=== PATIENT | male | born 1950 | race Caucasian/White ===

== ENCOUNTER → 2017-09-15 12:22 | Outpatient (CLI) | payer MEDICARE, SELFPAY ==
[2017-09-15 13:29] LABS: Absolute Lymphocyte Count 2.51 X10^3/ul (0.83-4.51); Absolute Neutrophil Count 6.1 X10^3/uL (2.0-7.7); Basophil# 0.05 X10^3/uL; Basophil% 0.5 % (0-1); Eosinophil# 0.16 X10^3/uL; Eosinophils% 1.7 % (0-5); Hematocrit 44.7 % (40-54); Lymphocyte # 2.51 X10^3/ul (4.0); Lymphocyte % 26.1 % (19-41); Mean Corp Hgb Conc 33.6 g/gl (32-36); Mean Corpuscular Hgb 29.6 pg (27.0-32.0); Mean Corpuscular Volume 88.2 fL (80-94); Mean Platelet Vol. 11.1 fl (6.2-12.0); Monocyte# 0.78 X10^3/uL; Monocyte% 8.1 % (0-10); Neutrophil # 6.11 X10^3/uL (2.7-7.7); Neutrophil % 63.4 % (47-70); POSITIVE COUNT NO; POSITIVE DIFFERENTIAL NO; POSITIVE MORPHOLOGY NO; Platelet Count 221 K/mm3 (150-450); RBC Distribution Width CV 13.5 % (11.6-14.6); Red Blood Count 5.07 M/mm3 (4.6-6.2); White Blood Count 9.6 K/mm3 (4.4-11.0)
[2017-09-15 14:04] LABS: ALB/GLOB Ratio 1.1 RATIO (0.9-2.4); AST(SGOT) 33 U/L (15-37); Alanine Aminotransfer ALT/SGPT 36 U/L (16-61); Albumin, Serum 4.1 g/dL (3.2-5.0); Alkaline Phosphatase 108 U/L (45-117); Anion Gap 7 (5-15); BUN 23 mg/dL (7-18); BUN/Creat Ratio 14.7 RATIO (10-20); Calcium,Total 8.9 mg/dL (8.5-10.1); Chloride 102 mmol/L (98-107); Cholesterol 196 mg/dL (200); Creatinine, Serum 1.56 mg/dL (0.70-1.30); EST Glomerular Filtration Rate 47 mL/min (>60); Est Glom Filt Rate - Afr Amer 57 mL/min (>60); Globulin 3.9 g/dL (2.2-4.2); Glucose 85 mg/dL (74-106); High Density Lipoprotein 56 mg/dL; PSA,Total - Annual Screen 2.15 ng/mL (0.00-4.00); Potassium 3.8 mmol/L (3.5-5.1); Sodium Level 138 mmol/L (136-145); Thyroid Stim Hormone (TSH) 1.32 uIU/mL (0.358-3.74); Triglycerides 67 mg/dL; Very Low Density Lipoprotein 13 mg/dL (5-40)
== END ==
PROVIDERS: Family Provider Internal Medicine; PCP Internal Medicine; Visit Provider Internal Medicine
DX: E27.40 Unspecified adrenocortical insufficiency (principal); E03.9 Hypothyroidism, unspecified; J44.9 Chronic obstructive pulmonary disease, unspecified; M51.36 Other intervertebral disc degeneration, lumbar region; R53.83 Other fatigue; Z12.5 Encounter for screening for malignant neoplasm of prostate
CPT/HCPCS: 36415; 80053; 80061; 82533; 84153; 84443; 85025; G0103

== ENCOUNTER → 2017-12-23 12:11 | Outpatient (CLI) | payer MEDICARE, SELFPAY ==
--- NOTE | 2017-12-23 12:16 | RAD_ITS ---
STUDY: X-RAY CHEST REASON FOR EXAM: Male, 67 years old. Chest pain. TECHNIQUE: PA and lateral views of the chest. COMPARISON: Comparison is made with prior study dated July 13, 2017. FINDINGS: Hyperinflation. Decreased bronchovascular markings in both lungs suggestive of emphysematous changes. There is no demonstrated pleural abnormality. Normal size heart. Normal mediastinum and shantel. Normal visualized pulmonary arteries. There is atherosclerotic calcification of the aortic arch with tortuosity. There is demineralization of the osseous structures. Normal visualized ribs, clavicles, and shoulders. There is no demonstrated abnormality of the visualized soft tissue structures of the upper abdomen. RAD/Chest PA and Lateral IMPRESSION: Hyperinflation. There has been no change since prior study. Electronically Signed: Blaze Mcgarry MD at 15:17 EDT Tel [phone], Service support ,
== END ==
PROVIDERS: Family Provider Internal Medicine; PCP Internal Medicine; Visit Provider Internal Medicine
DX: R06.02 Shortness of breath (principal)
CPT/HCPCS: 71046

== ENCOUNTER → 2017-12-24 07:57 | Outpatient (CLI) | payer MEDICARE, SELFPAY ==
[2017-12-24 08:31] LABS: Hematocrit 42.5 % (40-54); Hemoglobin 14.1 g/dl (13.0-16.5); Mean Corp Hgb Conc 33.2 g/gl (32-36); Mean Corpuscular Hgb 29.4 pg (27.0-32.0); Mean Corpuscular Volume 88.7 fL (80-94); Platelet Count 236 K/mm3 (150-450); RBC Distribution Width CV 13.2 % (11.6-14.6); RBC Distribution Width SD 42.7 fl (35.1-43.9); Red Blood Count 4.79 M/mm3 (4.6-6.2); White Blood Count 11.1 K/mm3 (4.4-11.0)
[2017-12-24 08:34] LABS: Scan Indicated on CBC? Y/N NO
[2017-12-24 08:46] LABS: AST(SGOT) 27 U/L (15-37); Alanine Aminotransfer ALT/SGPT 25 U/L (16-61); Albumin, Serum 3.9 g/dL (3.2-5.0); Alkaline Phosphatase 105 U/L (45-117); Anion Gap 8 (5-15); BUN 20 mg/dL (7-18); BUN/Creat Ratio 13.3 RATIO (10-20); Calcium,Total 8.7 mg/dL (8.5-10.1); Chloride 105 mmol/L (98-107); EST Glomerular Filtration Rate 49 mL/min (>60); Est Glom Filt Rate - Afr Amer 60 mL/min (>60); Globulin 3.9 g/dL (2.2-4.2); Glucose 92 mg/dL (74-106); Potassium 3.5 mmol/L (3.5-5.1); Protein, Total 7.8 g/dL (6.4-8.2); Sodium Level 142 mmol/L (136-145)
[2017-12-24 09:11] LABS: D-Dimer Quantitative (DVT/PE) 0.35 FEU/ug/m (0.27-0.49)
== END ==
PROVIDERS: Family Provider Internal Medicine; PCP Internal Medicine; Visit Provider Internal Medicine
DX: I26.99 Other pulmonary embolism without acute cor pulmonale (principal); D64.9 Anemia, unspecified; E27.40 Unspecified adrenocortical insufficiency
CPT/HCPCS: 36415; 80053; 85027; 85379

== ENCOUNTER → 2018-01-10 13:22 | Outpatient (CLI) | payer MEDICARE, SELFPAY ==
--- NOTE | 2018-01-10 13:22 | DT_ITS ---
This patient was seen during an EMR downtime January 03, 2018 - January 10, 2018. This patient may have a combination of paper and electronic documentation or all paper documentation. All documentation is viewable within the e-chart portion of [employer] for each patient visit.
[2018-01-10 15:54] LABS: ALB/GLOB Ratio 0.9 RATIO (0.9-2.4); AST(SGOT) 31 U/L (15-37); Alanine Aminotransfer ALT/SGPT 29 U/L (16-61); Albumin, Serum 3.8 g/dL (3.2-5.0); Alkaline Phosphatase 121 U/L (45-117); Anion Gap 8 (5-15); BUN 17 mg/dL (7-18); BUN/Creat Ratio 9.8 RATIO (10-20); CORTISOL SERUM < 0.50 ug/dL (3.09-22.40); Calcium,Total 8.8 mg/dL (8.5-10.1); Chloride 100 mmol/L (98-107); Creatinine, Serum 1.73 mg/dL (0.70-1.30); EST Glomerular Filtration Rate 42 mL/min (>60); Est Glom Filt Rate - Afr Amer 51 mL/min (>60); Globulin 4.1 g/dL (2.2-4.2); Glucose 116 mg/dL (74-106); Potassium 3.8 mmol/L (3.5-5.1); Protein, Total 7.9 g/dL (6.4-8.2); Sodium Level 139 mmol/L (136-145); Thyroid Stim Hormone (TSH) 1.37 uIU/mL (0.358-3.74)
== END ==
PROVIDERS: Family Provider Internal Medicine; PCP Internal Medicine; Visit Provider Internal Medicine
DX: E03.9 Hypothyroidism, unspecified (principal); E27.40 Unspecified adrenocortical insufficiency
CPT/HCPCS: 36415; 80053; 82533; 84443

== ENCOUNTER → 2018-04-19 13:04 | Outpatient (CLI) | payer MEDICARE, SELFPAY ==
[2018-04-19 13:44] LABS: Absolute Lymphocyte Count 3.22 X10^3/ul (0.83-4.51); Absolute Neutrophil Count 6.9 X10^3/uL (2.0-7.7); Basophil# 0.05 X10^3/uL; Basophil% 0.4 % (0-1); Eosinophil# 0.15 X10^3/uL; Eosinophils% 1.3 % (0-5); Hematocrit 43.9 % (40-54); Hemoglobin 14.9 g/dl (13.0-16.5); Lymphocyte # 3.22 X10^3/ul (4.0); Lymphocyte % 28.9 % (19-41); Mean Corp Hgb Conc 33.9 g/gl (32-36); Mean Corpuscular Hgb 29.9 pg (27.0-32.0); Mean Corpuscular Volume 88.2 fL (80-94); Mean Platelet Vol. 10.8 fl (6.2-12.0); Monocyte# 0.81 X10^3/uL; Monocyte% 7.3 % (0-10); Neutrophil # 6.89 X10^3/uL (2.7-7.7); Neutrophil % 61.9 % (47-70); Platelet Count 301 K/mm3 (150-450); RBC Distribution Width CV 12.8 % (11.6-14.6); Red Blood Count 4.98 M/mm3 (4.6-6.2); White Blood Count 11.1 K/mm3 (4.4-11.0)
[2018-04-19 13:48] LABS: POSITIVE COUNT NO; POSITIVE DIFFERENTIAL NO; POSITIVE MORPHOLOGY NO
[2018-04-19 14:11] LABS: Thyroid Stim Hormone (TSH) 0.76 uIU/mL (0.358-3.74)
== END ==
PROVIDERS: Family Provider Internal Medicine; PCP Internal Medicine; Visit Provider Internal Medicine
DX: R04.2 Hemoptysis (principal); J44.9 Chronic obstructive pulmonary disease, unspecified; I10 Essential (primary) hypertension; E03.9 Hypothyroidism, unspecified; E27.40 Unspecified adrenocortical insufficiency; I73.9 Peripheral vascular disease, unspecified
CPT/HCPCS: 36415; 82533; 84443; 85025

== ENCOUNTER 2018-05-17 10:26 | Emergency (ER) | payer MEDICARE, SELFPAY ==
[2018-05-17] VITALS (8 sets, daily range): BP systolic 154–183; BP diastolic 78–107; PULSE 80–98; RESP 16–20; TEMP 37.1; O2SAT 93–99; BMI 23.8
--- NOTE | 2018-05-17 10:41 | CT_ITS ---
STUDY: CT BRAIN WITHOUT CONTRAST REASON FOR EXAM: Male, 68 years old. Headaches. Dehydration. RADIATION DOSAGE (If Supplied By Facility): CTDIvol = ( 44.99 ) mGy, DLP = ( 779.24 ) mGycm TECHNIQUE: Transaxial CT imaging of the brain was performed without administration of intravenous contrast material. Individualized dose optimization techniques were used for this CT. COMPARISON: Comparison is made with prior examination dated July 13, 2017. FINDINGS: Normal soft tissue structures. Normal calvarium. Normal size ventricles and extra-axial spaces for the patient's age. Normal white matter tracts of the cerebral hemispheres. Normal basal ganglia and thalami. Normal brainstem. Normal cerebellum. There is no intracranial hemorrhage. There are no findings of an acute ischemic infarction. Normal visualized paranasal sinuses. CT/Brain/Head without Contrast IMPRESSION: Normal unenhanced CT scan of the brain. Electronically Signed: Blaze Mcgarry MD at 11:32 EDT Tel [phone], Service support ,
--- NOTE | 2018-05-17 10:41 | EKG12_ITS ---
Test Reason : NAUSEA Blood Pressure : / mmHG Vent. Rate : 093 BPM Atrial Rate : 093 BPM P-R Int : 130 ms QRS Dur : 084 ms QT Int : 364 ms P-R-T Axes : 082 -42 055 degrees QTc Int : 452 ms Sinus rhythm with occasional Premature ventricular complexes Right atrial enlargement Left axis deviation Pulmonary disease pattern Nonspecific ST abnormality Abnormal ECG Confirmed by MADDIE RING, LOCO ([id number]), deputy editor in chief LEE ASTORGA ([id number]) on 05/19/2018 9:41:46 AM Referred By: LEIGH Confirmed By:LOCO PERKINS MD
[2018-05-17 10:53] LABS: Absolute Neutrophil Count 9.7 X10^3/uL (2.0-7.7); Basophil# 0.03 X10^3/uL; Basophil% 0.2 % (0-1); Eosinophil# 0.16 X10^3/uL; Eosinophils% 1.3 % (0-5); Hematocrit 51.2 % (40-54); Hemoglobin 16.9 g/dl (13.0-16.5); Lymphocyte % 13.1 % (19-41); Mean Corpuscular Hgb 29.6 pg (27.0-32.0); Mean Corpuscular Volume 89.8 fL (80-94); Mean Platelet Vol. 10.6 fl (6.2-12.0); Monocyte# 0.73 X10^3/uL; Neutrophil # 9.67 X10^3/uL (2.7-7.7); Neutrophil % 79.3 % (47-70); Platelet Count 209 K/mm3 (150-450); RBC Distribution Width CV 12.8 % (11.6-14.6); RBC Distribution Width SD 41.4 fl (35.1-43.9); White Blood Count 12.2 K/mm3 (4.4-11.0)
[2018-05-17 10:56] LABS: POSITIVE COUNT NO; POSITIVE DIFFERENTIAL NO; POSITIVE MORPHOLOGY NO
[2018-05-17] MEDS: 0.9% Normal Saline 1,000 ML 1000 ML IV (11:02)
[2018-05-17] MEDS: Ondansetron 4 MG/2 ML Vial IV (11:02)
[2018-05-17 11:05] LABS: AST(SGOT) 161 U/L (15-37); Alanine Aminotransfer ALT/SGPT 173 U/L (16-61); Albumin, Serum 4.3 g/dL (3.2-5.0); Alkaline Phosphatase 109 U/L (45-117); Anion Gap 9 (5-15); BUN 25 mg/dL (7-18); BUN/Creat Ratio 17.2 RATIO (10-20); Calcium,Total 9.4 mg/dL (8.5-10.1); Chloride 95 mmol/L (98-107); Creatinine, Serum 1.45 mg/dL (0.70-1.30); EST Glomerular Filtration Rate 51 mL/min (>60); Est Glom Filt Rate - Afr Amer 62 mL/min (>60); Globulin 4.1 g/dL (2.2-4.2); Glucose 76 mg/dL (74-106); Potassium 3.8 mmol/L (3.5-5.1); Protein, Total 8.4 g/dL (6.4-8.2); Sodium Level 135 mmol/L (136-145)
[2018-05-17 11:59] LABS: Acetaminophen (Tylenol) Level < 2.0 ug/mL (10.0-30.0); Alcohol, Blood (Medical)-Serum < 3.0 mg/dL; Salicylate < 1.7 mg/dL (2.8-20.0)
[2018-05-17] MEDS: 0.9% Normal Saline 1,000 ML 999 ML IV (13:53)
--- NOTE | 2018-05-17 14:39 | ED.DCSUM_ITS ---
- ER Visit Summary Date of Service: 05/17/18 Chief Complaint: Dehydrated History of Present Illness: The patient is a [address] Garcia. He is a poor informant. He reports that he has been doing a fast and water cleanse for the past several days. States this is to get toxins left in me from being on OxyContin in 10/2003. He reports that he has not been eating. He has been drinking special water with magnesium. Patient complains of nausea and vomiting x3. No blood in his emesis. He reports that he has had multiple episodes of diarrhea since yesterday. No blood in his stools or black tarry stools. Complains of a headache that is 7 out of 10 severity and generalized weakness. EMS notes that the patient had all of his windows open despite the fact that was in the low 40s. I asked patient about this and he reports that there was a smell of natural gas. He is unable to state when this started. EMS also notes that the patient had packed bags with a loaded 357 on top of them. When asked about this patient reports that it is because he volunteered to be part [employer] the [employer]. States that he has not been called up yet. However, he had a phone message from the president that said standby. Physical Examination: Vitals: Stable. Afebrile. General: Well-nourished and well-developed. Head: Normocephalic atraumatic. Neck: Supple, no lymphadenopathy. No JVD. Nontender. Cardiovascular: Regular rate and rhythm. No murmurs. Respiratory: No respiratory distress. Clear to auscultation bilaterally. Abdominal: Soft, nontender, nondistended, normal bowel sounds. No guarding, rebound, or peritoneal signs. Back: Nontender. Extremities: Nontender, no edema. Skin: Normal color, no rash. Neurologic: Alert and oriented ?3. Cranial nerves II through XII are intact. Normal strength and sensation. Psych: Normal affect. Test Results: EKG is sinus at 93 with PVC. Troponin is negative. LFTs are marked for total bili of 2.7, ALT of 161, and AST of 173. Chem-7 is marked for sodium 135, chloride 95, BUN of 25, creatinine 1.45. Creatinine has been 1.43- 1.73 since 2017. Chem-7 is more for a white count of 12.2 with a hemoglobin of 16.9, 7 neutrophils 79, lymphocytes 13. Buttock level 0. Aspirin level is less than 1.7. Tylenol level is less than 3.0. CT brain is normal. UA, tox screen, and TSH are pending. Emergency Department Course and Treatment: I contacted the patient's daughter shortly after arrival. She reports that the patient has a history of schizophrenia and has been hospitalized for this in the past. She states that she was his guardian, but he has been doing well for the past 1-2 years and refused to let her be his guardian any longer. States that he changed bank accounts over the weekend and she is concerned that his schizophrenia is out of control. She is obviously concerned that he has a loaded gun at home. Treatment Plan: The patient will require hospitalization for his schizophrenia. He will be turned over to the oncoming doctor for further evaluation and will need to be seen by the counseling center. Disposition: Pending Impression: 1. Schizophrenia, decompensated. This note was generated with [employer] dictation software. It may contain incorrect words, spelling, and punctuation that were not noted in review of the chart prior to signing ED Disposition - Plan for ED Patient: Chief Complaint: Nausea/Vomiting Referrals: Lukas Garcia MD [Primary Care Provider] -
[2018-05-17 15:18] LABS: Thyroid Stim Hormone (TSH) 1.49 uIU/mL (0.358-3.74)
[2018-05-17 15:49] LABS: Bacteria 0 SEEN /hpf (None Seen); Mucous, Urine 0 SEEN /hpf (<or=2+); Squamous Epithelial Cells - UA 0 SEEN /hpf (0-5); White Blood Cells 0 SEEN /hpf (0-5)
[2018-05-17 16:09] LABS: Color, Urine Yellow (Yellow); Glucose, Dipstick Normal (Normal); Ketone-Dipstick 50 mg/dl (Negative); Leukocyte Esterase-Dipstick Negative /ul (Negative); Nitrite-Dipstick Negative (Negative); Occult Blood-Urine 25 /ul (Negative); Protein-Dipstick 30 mg/dl (Negative); Specific Gravity, Urine 1.015 (1.002-1.030); Urine Bilirubin Dipstick Negative (Negative); Urine Clarity Clear (Clear); Urine Urobilinogen Normal (Normal); Urine pH 6.5 (5.0 - 8.0)
[2018-05-17 16:23] LABS: Amphetamine Urine VISTA NEGATIVE (<1000 ng/mL); Barbiturate Urine VISTA NEGATIVE (< 200 ng/mL); Benzodiazepine Urine VISTA NEGATIVE (< 200 ng/mL); Cocaine Urine VISTA NEGATIVE (< 300 ng/mL); Ecstacy Urine VISTA NEGATIVE (< 500 ng/mL); Methadone Urine VISTA NEGATIVE (< 300 ng/mL); PCP Urine VISTA NEGATIVE (< 25 ng/mL); THC Urine VISTA NEGATIVE (< 50 ng/mL); Vista UDS pH Range 6
[2018-05-17 16:24] LABS: Red Blood Cells-Urine 0-5 SEEN /hpf (0-5)
[2018-05-17] MEDS: Ipratropium/Albuterol Sulfate 3 ML AMPUL.NEB INHALATION (17:36)
[2018-05-17] MEDS: Ondansetron ODT 4 MG Tablet PO (17:53)
[2018-05-17] MEDS: Acetaminophen 500 MG Tablet 1000 MG PO (20:11)
--- NOTE | 2018-05-17 21:30 | RAD_ITS ---
STUDY: X-RAY CHEST REASON FOR EXAM: Male, 68 years old. Mental health clearance. TECHNIQUE: 2 frontal images of the chest. COMPARISON: December 23, 2017 FINDINGS: There is no new focal consolidation. The lungs remain hyperinflated. Normal size heart. Normal mediastinum and shantel. Normal visualized pulmonary arteries. Normal visualized aortic arch and descending thoracic aorta. Normal visualized thoracic spine. Normal visualized ribs, clavicles, and shoulders. There is no demonstrated abnormality of the visualized soft tissue structures of the upper abdomen. RAD/Chest 1 View (Portable) IMPRESSION: Stable examination demonstrating no acute cardiopulmonary process. Electronically Signed: Faith Sam MD at 21:50 EDT Tel , Service support ,
[2018-05-17] MEDS: MELATONIN 10 MG TABLET PO (22:19)
[2018-05-17] MEDS: traZODone 50 MG Tablet PO (22:20)
[2018-05-18 01:00] VITALS: BP 148/112; PULSE 68; O2SAT 92
[2018-05-18 03:00] VITALS: BP 208/96; PULSE 100; O2SAT 92
[2018-05-18 05:00] VITALS: BP 165/75; PULSE 82; O2SAT 100
[2018-05-18 06:50] VITALS: BP 165/75; PULSE 90; RESP 18; TEMP 37.1; O2SAT 94
[2018-05-18 07:07] VITALS: BP 162/63; PULSE 68; RESP 18; O2SAT 91
== END 2018-05-18 08:10 ==
PROVIDERS: Emergency Provider Emergency Medicine; Family Provider Internal Medicine; PCP Internal Medicine
DX: F20.9 Schizophrenia, unspecified (principal); R11.2 Nausea with vomiting, unspecified; R19.7 Diarrhea, unspecified; R51 Headache; R53.1 Weakness; R68.83 Chills (without fever); I49.3 Ventricular premature depolarization; F32.9 Major depressive disorder, single episode, unspecified; Z86.14 Personal history of Methicillin resistant Staphylococcus aureus infection; Z79.899 Other long term (current) drug therapy
CPT/HCPCS: 70450; 71045; 80053; 80307; 80320; 80329; 81001; 84443; 84484; 85025; 93005; 94640; 96361; 96374; 99285; J7030; A4216; G0480; J2405

== ENCOUNTER 2018-07-21 10:08 | Emergency (ER) | payer MEDICARE, SELFPAY ==
[2018-07-21] VITALS (7 sets, daily range): BP systolic 128–194; BP diastolic 86–123; PULSE 81–114; RESP 16–18; TEMP -17.7–36.6; O2SAT 95–97; BMI 24.3
--- NOTE | 2018-07-21 10:12 | RAD_ITS ---
STUDY: X-RAY CHEST REASON FOR EXAM: Male, 68 years old. Chest pain, palpitations. Currently on antibiotics for lung infection. Recently started medication for blood pressure. Hypertension. TECHNIQUE: Portable chest upright COMPARISON: 05/17/2018 chest x-ray, CT chest 04/19/2017. FINDINGS: There is generalized pulmonary hyperlucency and hyperinflation with diffuse mild coarsening of the pulmonary interstitium and hemidiaphragm flattening consistent with underlying COPD/emphysema. There is a stable small radiodense nodular focus in the right lung apex measuring about 7 mm, most likely represent a small calcified granuloma. This is concordant with the partially calcified minimally spiculated pulmonary nodule seen at the right lung apex on CT chest of 04/19/2017 with no apparent interval growth. There is a subtle opacity in the left midlung, also concordant with a partially calcified pulmonary nodule of the left upper lobe posterior segment stable compared to prior imaging. The lungs are otherwise acutely clear. Normal cardiomediastinal silhouette, shantel and pleural margins. No acute osseous or upper abdominal process. RAD/Chest 1 View (Portable) IMPRESSION: Stable partially calcified right lung apex and right midlung pulmonary nodules compared to imaging of 2017 most consistent with old granulomatous disease and/or scar. COPD/emphysema. Electronically Signed: Leonardo Rinaldi MD at 11:06 EST Tel , Service support ,
--- NOTE | 2018-07-21 10:12 | EKG12_ITS ---
Test Reason : SOB Blood Pressure : / mmHG Vent. Rate : 102 BPM Atrial Rate : 102 BPM P-R Int : 138 ms QRS Dur : 058 ms QT Int : 320 ms P-R-T Axes : 076 -51 -02 degrees QTc Int : 417 ms Sinus tachycardia Left axis deviation Inferior infarct , age undetermined Abnormal ECG Confirmed by DIRK RICHARDS ([id number]), brands editor LEE ASTORGA ([id number]) on 07/27/2018 2:42:11 PM Referred By: PAOLA Confirmed By:DIRK RICHARDS
--- NOTE | 2018-07-21 10:20 | ED.VISSUMM ---
- ER Visit Summary Date of Service: 07/21/18 Chief Complaint: [] Elevated blood pressure for about a month History of Present Illness: The patient is a 68 M [] history of adrenal insufficiency COPD hypertension, presents complaining feels as if his blood pressure is elevated, he was seen by visiting nurse was about 190/100, indicates his blood pressure has been higher than normal since he was given an injection of inVega about a month which was used to relax him, this medicine had no effect on him other than he feels driving his blood pressure up, he was started on Cozaar 50 mg a day about 2 weeks ago he has noticed no improvement he was brought in for evaluation he also notes at times he feels if his heart is racing he has no history of MO PE DVT CAD he lives alone at home and does well he is followed by Dr. Garcia Physical Examination: [] 193/105 afebrile resting comfortably in the bed General, no distress resting comfortably HEENT is generally unremarkable The neck is supple no adenopathy Cardiovascular, regular rate and rhythm Lungs, clear bilateral Abdomen, soft nontender Extremities, no clubbing cyanosis or edema Neurologic, awake alert answering questions appropriately moving all 4 extremities Test Results: [] Emergency Department Course and Treatment: [] In all the above he was given clonidine screening labs his EKG shows a sinus rhythm nothing acute His screening labs chest x-ray unremarkable his blood pressure is now 153/83 he is resting cuffing the bed no distress, he was given clonidine 0.[address] Garcia his attending physician Dr. Garcia's records and blood pressure measurements in the office have been in this range of 153/80, at this time Dr. Garcia asked the patient stay on his losartan 50 mg a day we will add clonidine 0.1 mg twice daily for [address] Garcia reassess him in the office for further management I explained all the above to the patient he agrees and will follow up Treatment Plan: [] Disposition: [] Home stable Impression: [] Hypertension with exacerbation improved This note was generated with [employer] software. It may contain incorrect words, spelling, and punctuation that were not noted in review of the chart prior to signing ED Disposition - Plan for ED Patient: Chief Complaint: Chest Pain Referrals: Lukas Garcia MD [Primary Care Provider] -
[2018-07-21 10:35] LABS: Absolute Lymphocyte Count 1.89 X10^3/ul (0.83-4.51); Absolute Neutrophil Count 5.2 X10^3/uL (2.0-7.7); Basophil# 0.02 X10^3/uL; Basophil% 0.2 % (0-1); Eosinophil# 0.71 X10^3/uL; Eosinophils% 8.4 % (0-5); Hematocrit 39.6 % (40-54); Hemoglobin 12.8 g/dl (13.0-16.5); Lymphocyte # 1.89 X10^3/ul (4.0); Lymphocyte % 22.4 % (19-41); Mean Corp Hgb Conc 32.3 g/gl (32-36); Mean Corpuscular Hgb 29.2 pg (27.0-32.0); Mean Corpuscular Volume 90.2 fL (80-94); Mean Platelet Vol. 9.9 fl (6.2-12.0); Monocyte# 0.63 X10^3/uL; Monocyte% 7.5 % (0-10); Neutrophil # 5.19 X10^3/uL (2.7-7.7); Neutrophil % 61.4 % (47-70); Platelet Count 170 K/mm3 (150-450); RBC Distribution Width CV 15.2 % (11.6-14.6); RBC Distribution Width SD 50.1 fl (35.1-43.9); Red Blood Count 4.39 M/mm3 (4.6-6.2); White Blood Count 8.5 K/mm3 (4.4-11.0)
[2018-07-21] MEDS: Ipratropium/Albuterol Sulfate 3 ML AMPUL.NEB INHALATION (10:35)
[2018-07-21 10:36] LABS: POSITIVE COUNT NO; POSITIVE DIFFERENTIAL NO; POSITIVE MORPHOLOGY NO
[2018-07-21] MEDS: Aspirin 81 MG TAB.CHEW 324 MG PO (10:41)
[2018-07-21] MEDS: Clonidine HCl 0.1 MG, Clonidine HCl 0.2 MG 0.3 MG PO (10:44)
[2018-07-21 10:47] LABS: Anion Gap 10 (5-15); BUN 22 mg/dL (7-18); BUN/Creat Ratio 16.1 RATIO (10-20); Calcium,Total 8.5 mg/dL (8.5-10.1); Chloride 102 mmol/L (98-107); Creatinine, Serum 1.37 mg/dL (0.70-1.30); EST Glomerular Filtration Rate 55 mL/min (>60); Est Glom Filt Rate - Afr Amer 66 mL/min (>60); Glucose 105 mg/dL (74-106); Potassium 3.9 mmol/L (3.5-5.1); Sodium Level 143 mmol/L (136-145)
[2018-07-21 11:04] LABS: BNP,B-Type NATRIURETIC PEPTIDE 16.8 pg/mL (0-100)
[2018-07-21 11:29] LABS: Mucous, Urine 0 SEEN /hpf (<or=2+); White Blood Cells 0 SEEN /hpf (0-5)
--- NOTE | 2018-07-21 11:29 | NURSING ---
CALLING DR GERRY HANKS, , FOR DR CLEMENTE
[2018-07-21 11:31] LABS: Color, Urine Yellow (Yellow); Glucose, Dipstick Normal (Normal); Ketone-Dipstick Negative (Negative); Leukocyte Esterase-Dipstick Negative /ul (Negative); Nitrite-Dipstick Negative (Negative); Occult Blood-Urine 10 /ul (Negative); Protein-Dipstick Negative (Negative); Urine Bilirubin Dipstick Negative (Negative); Urine Clarity Sl. Cloudy (Clear); Urine Urobilinogen Normal (Normal)
[2018-07-21 11:56] LABS: Bacteria RARE /hpf (None Seen); Red Blood Cells-Urine 0-5 SEEN /hpf (0-5); Squamous Epithelial Cells - UA 0-5 SEEN /hpf (0-5)
--- NOTE | 2018-07-21 12:03 | ED.DEP ---
ED Disposition - Plan for ED Patient: Chief Complaint: Chest Pain Instructions: ED HTN Established Prescriptions: Clonidine HCl [Catapres] 0.1 mg PO BID #14 tab Referrals: Lukas Garcia MD [Primary Care Provider] - Additional Instructions: Continue your current medicine losartan, add the clonidine 0.1 mg twice daily and follow-up with your doctor in a few days
== END 2018-07-21 13:29 | disposition short-term general hospital (02) ==
PROVIDERS: Emergency Provider Emergency Medicine; Family Provider Internal Medicine; PCP Internal Medicine
DX: I10 Essential (primary) hypertension (principal); J44.9 Chronic obstructive pulmonary disease, unspecified; R00.2 Palpitations; Z60.2 Problems related to living alone; R06.02 Shortness of breath
CPT/HCPCS: 71045; 80048; 81001; 83880; 84484; 85025; 93005; 94640; 99285; J7030; A4216

== ENCOUNTER 2018-08-04 08:57 | Emergency (ER) | payer MEDICARE, SELFPAY ==
[2018-07-21 10:10] VITALS: BMI 24.3
[2018-08-04 08:59] VITALS: BP 170/99; PULSE 94; PULSE 97; RESP 18; TEMP 36.6; O2SAT 95; O2SAT 96; BMI 21.5
--- NOTE | 2018-08-04 09:04 | EKG12_ITS ---
Test Reason : PALPS Blood Pressure : / mmHG Vent. Rate : 093 BPM Atrial Rate : 093 BPM P-R Int : 128 ms QRS Dur : 074 ms QT Int : 350 ms P-R-T Axes : 080 -41 052 degrees QTc Int : 435 ms Normal sinus rhythm Left axis deviation Low voltage QRS (LIMB LEADS) Nonspecific T wave abnormality Abnormal ECG Confirmed by KERVIN RING, VIOLA ([id number]), order editor LEE ASTORGA ([id number]) on 08/09/2018 11:18:47 AM Referred By: BRAULIO Confirmed By:VIOLA GALEANA MD
[2018-08-04 09:41] VITALS: BP 167/93; PULSE 90; RESP 18; O2SAT 97
[2018-08-04] MEDS: cloNIDine HCl 0.1 MG Tablet PO (09:41)
[2018-08-04 10:28] VITALS: BP 182/89; PULSE 76; RESP 18; O2SAT 96
[2018-08-04 10:58] VITALS: BP 134/81; PULSE 88; RESP 16; O2SAT 96
--- NOTE | 2018-08-04 11:00 | ED.DCSUM_ITS ---
- ER Visit Summary Date of Service: 08/04/18 Chief Complaint: High blood pressure History of Present Illness: The patient is a 68 M with high blood pressure over the past month. The patient attributes it to taking Invega. He is currently on losartan and is compliant, but takes nothing else for blood pressure. He has had some headache and palpitations over the past month intermittently. No other symptoms. Non-smoker. Physical Examination: Afebrile and vital signs unremarkable except for a blood pressure of 170/99. HEENT exam unremarkable. Cranial nerves unremarkable. Heart regular. Lungs clear. Abdomen soft. Skin, calves, pulses unremarkable. Good strength and sensation in his extremities. Nonfocal neurologic exam. Test Results: Patient had an EKG that showed sinus rhythm at a rate of 93. No sign of acute ischemia or infarction pattern. He declined any other testing. Emergency Department Course and Treatment: Patient presents with hypertension. He has had a headache and palpitations. His blood pressure was over 200 earlier today. I advised him that he is at risk for brain, heart, vascular, renal, and other damage. He declined any testing. Patient was treated with a dose of clonidine as we had this on hand. He received 0.1 mg. On reevaluation, his blood pressure was 134/81. He had no new or different symptoms. He would like to go home. Will prescribe a course of HCTZ. He will follow-up with his doctor. Continue his other medications. Return for any new or worsening issues. Treatment Plan: As above Disposition: Discharge Impression: 1. Hypertension established This note was generated with [employer] dictation software. It may contain incorrect words, spelling, and punctuation that were not noted in review of the chart prior to signing ED Disposition - Plan for ED Patient: Chief Complaint: Hypertension Referrals: Lukas Garcia MD [Primary Care Provider] -
--- NOTE | 2018-08-04 11:00 | ED.DEP ---
ED Disposition - Plan for ED Patient: Chief Complaint: Hypertension Instructions: ED HTN Established Prescriptions: Hydrochlorothiazide [Hctz] 25 mg PO DAILY #30 tab Referrals: Lukas Garcia MD [Primary Care Provider] -
[2018-08-04 11:25] VITALS: BP 138/88; PULSE 84; RESP 16; O2SAT 97
== END 2018-08-04 11:26 | disposition home or self-care (01) ==
PROVIDERS: Emergency Provider Emergency Medicine; Family Provider Internal Medicine; PCP Internal Medicine
DX: I10 Essential (primary) hypertension (principal); J44.9 Chronic obstructive pulmonary disease, unspecified; E03.9 Hypothyroidism, unspecified
CPT/HCPCS: 93005; 99284

== ENCOUNTER 2018-08-10 06:50 | Emergency (ER) | payer MEDICARE, SELFPAY ==
[2018-08-10 06:51] VITALS: BP 167/92; PULSE 94; RESP 18; TEMP 36.6; O2SAT 97; BMI 23.6
--- NOTE | 2018-08-10 07:13 | EKG12_ITS ---
Test Reason : HYPERTENSION Blood Pressure : / mmHG Vent. Rate : 082 BPM Atrial Rate : 082 BPM P-R Int : 152 ms QRS Dur : 064 ms QT Int : 366 ms P-R-T Axes : 078 -37 002 degrees QTc Int : 427 ms Normal sinus rhythm Left axis deviation Inferior infarct , age undetermined Abnormal ECG Confirmed by MADDIE RING, LOCO ([id number]), photograph editor LEE ASTORGA ([id number]) on 08/15/2018 10:00:18 AM Referred By: MILA Confirmed By:LOCO PERKINS MD
[2018-08-10] MEDS: cloNIDine HCl 0.1 MG Tablet PO (07:28)
--- NOTE | 2018-08-10 07:48 | ED.DCSUM_ITS ---
- ER Visit Summary Date of Service: 08/10/18 Chief Complaint: Hypertension History of Present Illness: The patient is a 68 M presenting for evaluation secondary to hypertension. Patient reports that he get long-acting injections of invega. He reports that he has an adverse reaction to these in the sense t hat he is having difficult to control hypertension. Patient states that this hypertension is associated with headaches and palpitations. He denies any chest pain shortness of breath visual changes numbness or weakness. Patient has been seen in the emergency department for this a number of times. Patient is currently on antihypertensives including losartan 100 mg daily and hydrochlorothiazide 25 mg daily. Patient reports that he has follow-up with his primary care physician for this next week, but his symptoms returned this morning and he was concerned. Review of systems otherwise negative. Physical Examination: Vital signs are within normal limits, blood pressure 167/92, patient is afebrile. General: Patient is well-nourished well-developed and in no acute distress. Head: Normocephalic, atraumatic Eyes: Pupils equal round and reactive bilaterally, extra occular motion intact bialterally ENT: Moist mucous membranes Neck: Supple, no lymphadenopathy, no JVD, no meningismus CVS: Heart regular rate and rhythm, no murmurs, rubs or gallops, radial pulses 2+ bilaterally Resp: Respirations nondistressed, lung sounds clear bilaterally Abdomen: Soft, nontender, nondistended, no palpable masses, normal bowel sounds Back: Nontender Extremities: Nontender, atraumatic, active full range of motion, no peripheral edema Skin: warm, no rashes, no petechia Neuro: Alert and oriented x 4, CN 2-12 intact, no lateralizing neurological defecits Psyc: Normal affect Test Results: EKG demonstrates sinus rhythm at 82 with left axis deviation, no evidence of acute ST segment changes or T wave changes, no changes from prior EKG Emergency Department Course and Treatment: Patient presented for evaluation secondary to hypertension. He has no concerning evidence of endorgan damage. His blood pressure is 167/92 which is not to a level where I believe that he is at risk for acute coronary syndrome, heart failure, stroke, or other serious etiology. I do not believe that blood work or further workup is indicated. An EKG showed no signs of heart strain. Patient was given a dose of Catapres in the emergency department and will be discharged with a course of the same. He is encouraged to follow-up with his primary care physician. Disposition: Discharge Impression: 1. Chronic hypertension 2. Prescription therapy This note was generated with [employer] dictation software. It may contain incorrect words, spelling, and punctuation that were not noted in review of the chart prior to signing ED Disposition - Plan for ED Patient: Disposition: Home or Assisted Living Chief Complaint: Hypertension Diagnosis: Hypertension Instructions: ED HTN Established Prescriptions: Clonidine HCl [Catapres] 0.1 mg PO DAILY #10 tab Referrals: Lukas Garcia MD [Primary Care Provider] - Keep Ciara appointment
[2018-08-10 07:50] VITALS: BP 132/86; PULSE 70; RESP 16; O2SAT 95
[2018-08-10 07:56] VITALS: BP 132/86; PULSE 70; RESP 16; O2SAT 95
== END 2018-08-10 07:57 | disposition home or self-care (01) ==
PROVIDERS: Emergency Provider Emergency Medicine; Family Provider Internal Medicine; PCP Internal Medicine
DX: I10 Essential (primary) hypertension (principal)
CPT/HCPCS: 93005; 99283

== ENCOUNTER → 2018-12-15 11:28 | Outpatient (CLI) | payer MEDICARE, SELFPAY ==
[2018-12-15 12:21] LABS: Absolute Lymphocyte Count 2.77 X10^3/ul (0.83-4.51); Absolute Neutrophil Count 4.8 X10^3/uL (2.0-7.7); Basophil# 0.02 X10^3/uL; Basophil% 0.2 % (0-1); Eosinophil# 0.18 X10^3/uL; Eosinophils% 2.1 % (0-5); Hemoglobin 13.1 g/dl (13.0-16.5); Lymphocyte # 2.77 X10^3/ul (4.0); Lymphocyte % 32.2 % (19-41); Mean Corp Hgb Conc 33.6 g/gl (32-36); Mean Corpuscular Volume 92.2 fL (80-94); Mean Platelet Vol. 9.8 fl (6.2-12.0); Monocyte# 0.86 X10^3/uL; Neutrophil # 4.75 X10^3/uL (2.7-7.7); Neutrophil % 55.4 % (47-70); Platelet Count 263 K/mm3 (150-450); RBC Distribution Width CV 13.6 % (11.6-14.6); RBC Distribution Width SD 45.3 fl (35.1-43.9); Red Blood Count 4.23 M/mm3 (4.6-6.2); White Blood Count 8.6 K/mm3 (4.4-11.0)
[2018-12-15 12:24] LABS: POSITIVE COUNT NO; POSITIVE DIFFERENTIAL NO; POSITIVE MORPHOLOGY NO
[2018-12-15 12:58] LABS: ALB/GLOB Ratio 1.3 RATIO (0.9-2.4); AST(SGOT) 25 U/L (15-37); Alanine Aminotransfer ALT/SGPT 31 U/L (16-61); Albumin, Serum 4.1 g/dL (3.2-5.0); Alkaline Phosphatase 70 U/L (45-117); Anion Gap 4 (5-15); BUN 24 mg/dL (7-18); BUN/Creat Ratio 12.7 RATIO (10-20); Calcium,Total 8.6 mg/dL (8.5-10.1); Chloride 105 mmol/L (98-107); Cholesterol 187 mg/dL (200); Creatinine, Serum 1.89 mg/dL (0.70-1.30); EST Glomerular Filtration Rate 38 mL/min (>60); Est Glom Filt Rate - Afr Amer 46 mL/min (>60); Globulin 3.2 g/dL (2.2-4.2); Glucose 85 mg/dL (74-106); High Density Lipoprotein 50 mg/dL; Iron 82 ug/dL (65-175); Iron Binding Capacity,Total 331 ug/dL (250-450); Potassium 3.7 mmol/L (3.5-5.1); Protein, Total 7.3 g/dL (6.4-8.2); Sodium Level 136 mmol/L (136-145); Thyroid Stim Hormone (TSH) 1.08 uIU/mL (0.358-3.74); Triglycerides 142 mg/dL; Very Low Density Lipoprotein 28 mg/dL (5-40)
== END ==
PROVIDERS: Family Provider Internal Medicine; PCP Internal Medicine; Referring Provider Internal Medicine; Visit Provider Internal Medicine
DX: E27.40 Unspecified adrenocortical insufficiency (principal); J44.9 Chronic obstructive pulmonary disease, unspecified; E03.9 Hypothyroidism, unspecified; I10 Essential (primary) hypertension; R53.82 Chronic fatigue, unspecified; D64.9 Anemia, unspecified
CPT/HCPCS: 36415; 80053; 80061; 82533; 83540; 83550; 84443; 85025

== ENCOUNTER 2019-02-28 15:38 | Emergency (ER) | payer MEDICARE, SELFPAY ==
[2019-02-28] VITALS (11 sets, daily range): BP systolic 106–112; BP diastolic 67–79; PULSE 90–98; RESP 16–20; TEMP 36.8; O2SAT 94–98; BMI 24.7
--- NOTE | 2019-02-28 15:46 | ED.RN ---
PT DENIES CHEST PAIN, OR CARDIAC HX.
--- NOTE | 2019-02-28 15:50 | RAD_ITS ---
STUDY: X-RAY CHEST REASON FOR EXAM: Male, 69 years old. Shortness of breath. Productive cough. TECHNIQUE: Single frontal view of the chest. COMPARISON: July 21, 2018 FINDINGS: Stable hyperexpansion. There is no demonstrated pleural abnormality. Borderline cardiomegaly unchanged. Normal mediastinum and shantel. Normal visualized pulmonary arteries. Normal visualized aortic arch and descending thoracic aorta. Normal visualized thoracic spine. Normal visualized ribs, clavicles, and shoulders. There is no demonstrated abnormality of the visualized soft tissue structures of the upper abdomen. RAD/Chest 1 View (Portable) IMPRESSION: Stable borderline cardiomegaly with hyperexpansion. No acute finding. Electronically Signed: Avtar Virk MD at 16:31 EDT , Service support ,
--- NOTE | 2019-02-28 16:24 | ED.DCSUM_ITS ---
History of Present Illness Chief Complaint: Shortness of Breath Informant: Patient Onset: Days - Onset of illness February 20 Context: Sudden Onset Timing: Continuous Quality: T-max 101.0 ?F, dyspnea, dyspnea exertion and productive cough Location: Respiratory Current Severity: Mild Maximum Severity: Moderate Worsened by: Activity Relieved by: Initially nebulizer now nothing Associated Symptoms: URI symptoms and previously documented Narrative: Patient is 69-year-old male presents with runny nose, postnasal drainage, sore throat and cough that started Wednesday. He had a documented temperature 101.0 ?F on Wednesday and saw his doctor. He was placed on Avelox. He does have history of COPD. He states his breathing improved after using his nebulizer. He is using his nebulizer 4 times a day. Last couple of days he has had no impro vement. Reports he cannot walk from room to room. He denies history of PE or DVT. Denies leg pain, swelling discoloration. He states he now has a cough productive of bloom-colored sputum. He is a former smoker. History is significant for adrenal insufficiency. He takes 7.5 mg of prednisone daily. He did not increase his dose of prednisone when he became ill he does complain of fatigue. He does report lightheadedness if he stands rapidly. Prior similar symptoms: Yes Recent Illness/Hospitalization: Yes - Past Medical History (1) Adrenal insufficiency Status: Chronic (2) COPD (chronic obstructive pulmonary disease) Status: Chronic Past Medical History - Allergies and Home Meds Allergies/Adverse Reactions: Allergies vancomycin Allergy (Verified 02/28/19 15:39) Anaphylaxis Primary Care Physician: Lukas Garcia MD [Primary Care Provider] - Prior records reviewed: Yes Surgical History: - - colonoscopy and EGD, bronch 2011, Lives: Alone - Patient is . Smoking Status: Former smoker Alcohol: None Drugs: None - Family History Maternal Family History: Reports: No pertinent history Paternal Family History: Reports: No pertinent history Review of Systems General: Reports: Fever. Denies: Chills, Malaise, Subjective, Sweats, Weight loss, - Eyes: Denies: Visual changes - bilaterally, Blurred Vision - bilaterally ENT: Reports: Rhinorrhea, Sore throat. Denies: Bilateral ear pain Cardiovascular: Denies: Chest pain, Palpitations Respiratory: Reports: Dyspnea, Cough, Sputum, Dyspnea on exertion. Denies: Orthopnea, Paroxysmal nocturnal dyspnea Gastrointestinal: Denies: Abdominal pain, Nausea, Vomiting, Diarrhea, Melena, Hematochezia Genitourinary: Denies: Dysuria, Hematuria, Frequency Musculoskeletal: Denies: Myalgias, Arthralgias, Back pain, Swelling, Extremity Pain Neurological: Reports: Weakness. Denies: Headache, Parasthesia, Numbness Endocrine: Denies: Polyuria, Polydipsia Hematologic: Denies: Easy bruising, Easy bleeding Physical Exam Vital Signs/Narrative: Vital Signs Temp Pulse Resp BP Pulse Ox 02/28/19 16:16 16 97 02/28/19 15:40 98.3 F 98 17 106/79 97 Inital Vital Signs reviewed: Yes General: Well nourished, Well developed, No Acute Distress Head: Normocephalic, Atraumatic Eyes: Perrl, EOMI ENT: Moist mucous membranes, No rhinorrhea, TM's clear Neck: Supple, Nontender Cardiovascular: Regular rate, Regular rhythm, No murmurs Respiratory: No distress, Wheezing - With increased expiratory phase, Decreased Air Movement. Negative for: CTA bilaterally Abdomen: Soft, Nontender, Nondistended, Normal bowel sounds Back: Nontender, Normal Inspection Extremities: Nontender, No edema, - - There is no asymmetry, swelling, discolora tion, leg vein distention, palpable cords or tenderness along the distribution of the deep venous system. Skin: Normal color, No rash Neurological: Alert, Oriented x3, Cranial nerves II-XII grossly intact, Normal Strength, Normal Sensation Psychological: Normal affect, Normal Mood Diagnostic/Tx/Re-eval Chest X-Ray - ED: 1 View, Read by ED Physician, Normal, Heart, Mediastinum, Bony Structures, No Acute Disease, Chronic Changes Impressions Chest X-Ray 02/28/19 15:50 IMPRESSION: Stable borderline cardiomegaly with hyperexpansion. No acute finding. Electronically Signed: Avtar Virk MD at 16:31 EDT , Service support , 02/28/19 15:50 Chest 1 View (Portable) [RAD] Stat Laboratory Results 02/28/19 02/28/19 16:30 16:30 WBC 17.1 H RBC 4.05 L Hgb 12.7 L Hct 37.8 L MCV 93.3 MCH 31.4 MCHC 33.6 RDW Std Deviation 39.2 RDW Coeff of Bernie 11.6 Plt Count 277 MPV 9.8 Immature Gran % (Auto) 0.800 Neut % (Auto) 73.4 H Lymph % (Auto) 14.1 L Villalba % (Auto) 10.4 H Eos % (Auto) 0.9 Baso % (Auto) 0.4 Absolute Neuts (auto) 12.5 H Absolute Lymphs (auto) 2.40 Nucleated RBC % 0 Differential Comment SCANNED Sodium 137 Potassium 4.2 Chloride 103 Carbon Dioxide 25.0 Anion Gap 9 BUN 25 H Creatinine 2.15 H Estim Creat Clear Calc 32.54 Est GFR (MDRD) Af Amer 39 L Est GFR (MDRD) Non-Af 32 L BUN/Creatinine Ratio 11.6 Glucose 88 Calcium 8.7 Patient's white count is elevated. This would suggest he has an infection or stress because of adrenal insufficiency. - EKG Initial EKG Interpretation: Sinus Rhythm - Ventricular rate is 96. LA interval is 152 ms. QRS duration 68 ms. QT interval is normal. [place] is normal. The EKG is completely normal. - Medical Decision Making Suspect patient had a viral bronchitis and reason he has not gotten better with Avelox. Some of his symptoms may be secondary to adrenal insufficiency since he has not increased his dose of prednisone. Will obtain basic melena panel to assess sodium and potassium. Because he has significant wheezing will treat with DuoNeb and albuterol. He also was given 60 mill grams of prednisone. Per nurse protocol single view chest x-ray was obtained and per my interpretation is unremarkable, 1625 Patient was reassessed at 1840. He is no longer wheezing. He states he feels markedly better. Patient asked if he should discontinue his antibiotic and if he needs a new antibiotic. I recommended discontinuation of antibiotic is all likelihood he has a viral infection and reason he was not getting better. I also believe his symptoms were secondary to adrenal insufficiency since he did not increase his steroid dose. Will send him home with a prescription for tapering dose of prednisone. He was instructed to resume his normal strength after the tapering dose. ED Disposition - Plan for ED Patient: Disposition: Home or Assisted Living Diagnosis: Acute viral bronchitis, Bronchospasm with bronchitis, acute, Adrenal insufficiency Instructions: BRONCHITIS, No Antibiotic (Adult) Prescriptions: Prednisone 10 mg PO UD #33 tab Prescription Printed Referrals: Lukas Garcia MD [Primary Care Provider] - 1 Week if not improving Additional Instructions: Take tapering dose of prednisone until gone. Once you take the last dose of prednisone resume your normal regimen.
--- NOTE | 2019-02-28 16:30 | EKG12_ITS ---
Test Reason : SOB Blood Pressure : / mmHG Vent. Rate : 096 BPM Atrial Rate : 096 BPM P-R Int : 152 ms QRS Dur : 068 ms QT Int : 316 ms P-R-T Axes : 077 -22 018 degrees QTc Int : 399 ms Normal sinus rhythm Left willis axis Low Voltage QRS (Limb Leads) R/S >1.0 in V1 Consider Lead Placement, Early Transition; Posterior MO-Age Undetermined; Normal Variant Confirmed by KERVIN RING, VIOLA ([id number]), photographic editor KIRTI COOPER ([id number]) on 03/02/2019 1:34:13 PM Referred By: JEREMY Confirmed By:VIOLA GALEANA MD
[2019-02-28] MEDS: Ipratropium/Albuterol Sulfate 3 ML AMPUL.NEB INHALATION (16:31)
[2019-02-28] MEDS: Albuterol 2.5 MG/3 ML VIAL.NEB. INHALATION ×3 (16:47→17:48)
[2019-02-28 16:49] LABS: Absolute Neutrophil Count 12.5 X10^3/uL (2.0-7.7); Basophil# 0.07 X10^3/uL; Basophil% 0.4 % (0-1); Eosinophil# 0.15 X10^3/uL; Eosinophils% 0.9 % (0-5); Hematocrit 37.8 % (40-54); Hemoglobin 12.7 g/dL (13.0-16.5); Lymphocyte % 14.1 % (19-41); Mean Corp Hgb Conc 33.6 g/dL (32-36); Mean Corpuscular Hgb 31.4 pg (27.0-32.0); Mean Corpuscular Volume 93.3 fL (80-94); Mean Platelet Vol. 9.8 fl (6.2-12.0); Monocyte# 1.78 X10^3/uL; Monocyte% 10.4 % (0-10); NRBC Flagged by Analyzer 0 % (0-5); Neutrophil # 12.53 X10^3/uL (2.7-7.7); Neutrophil % 73.4 % (47-70); POSITIVE DIFFERENTIAL YES; Platelet Count 277 K/mm3 (150-450); RBC Distribution Width CV 11.6 % (11.6-14.6); RBC Distribution Width SD 39.2 fl (35.1-43.9); Red Blood Count 4.05 M/mm3 (4.6-6.2); White Blood Count 17.1 K/mm3 (4.4-11.0)
[2019-02-28 16:52] LABS: Differential Indicated SCAN CRITERIA MET
[2019-02-28 17:05] LABS: Anion Gap 9 (5-15); BUN 25 mg/dL (7-18); BUN/Creat Ratio 11.6 RATIO (10-20); Calcium,Total 8.7 mg/dL (8.5-10.1); Chloride 103 mmol/L (98-107); Creatinine, Serum 2.15 mg/dL (0.70-1.30); EST Glomerular Filtration Rate 32 mL/min (>60); Est Glom Filt Rate - Afr Amer 39 mL/min (>60); Estimated Creatinine Clearance 32.54 ml/min; Glucose 88 mg/dL (74-106); Potassium 4.2 mmol/L (3.5-5.1); Sodium Level 137 mmol/L (136-145)
[2019-02-28 17:22] LABS: Differential Comment SCANNED
[2019-02-28] MEDS: Ondansetron ODT 4 MG Tablet PO (17:27)
[2019-02-28] MEDS: predniSONE 20 MG Tablet 60 MG PO (17:34)
[2019-03-03 13:38] LABS: Pathologist Review Reviewed
== END 2019-02-28 19:01 | disposition home or self-care (01) ==
PROVIDERS: Emergency Provider Emergency Medicine; Family Provider Internal Medicine; PCP Internal Medicine
DX: J20.8 Acute bronchitis due to other specified organisms (principal); J44.0 Chronic obstructive pulmonary disease with (acute) lower respiratory infection; E27.40 Unspecified adrenocortical insufficiency; Z87.891 Personal history of nicotine dependence
CPT/HCPCS: 71045; 80048; 85025; 93005; 94640; 94760; 99283; A4216

== ENCOUNTER 2019-04-13 16:30 | Emergency (ER) | payer MEDICARE, SELFPAY ==
[2019-02-28 15:40] VITALS: BMI 24.7
[2019-04-13] VITALS (7 sets, daily range): BP systolic 179–200; BP diastolic 93–100; PULSE 70–103; RESP 16–20; TEMP 36.6–36.8; O2SAT 95–97; BMI 22.4
--- NOTE | 2019-04-13 16:57 | EKG12_ITS ---
Test Reason : PALPITATIONS Blood Pressure : / mmHG Vent. Rate : 101 BPM Atrial Rate : 101 BPM P-R Int : 124 ms QRS Dur : 066 ms QT Int : 318 ms P-R-T Axes : 082 -29 -01 degrees QTc Int : 412 ms Sinus tachycardia Possible Left atrial enlargement Nonspecific ST abnormality Abnormal ECG Confirmed by VOLODYMYR RING, ROYER ([id number]), editor managing director LEE ASTORGA ([id number]) on 04/17/2019 3:39:52 PM Referred By: BRAULIO/MORGAN Confirmed By:FERCHO HELM MD
--- NOTE | 2019-04-13 16:58 | RAD_ITS ---
STUDY: X-RAY CHEST REASON FOR EXAM: Male, 69 years old. Palpitations and hypertension this morning. Patient on antibiotics for airway infection. TECHNIQUE: PA and lateral views of the chest. COMPARISON: February 28, 2019 FINDINGS: The lungs are hyperexpanded. There is no new mass or infiltrate. There is no demonstrated pleural abnormality. Normal size heart. Normal mediastinum and shantel. Normal visualized pulmonary arteries. There is atherosclerotic calcification of the aortic arch with tortuosity. Normal visualized thoracic spine. There is degenerative osteoarthritis of the bilateral shoulders. There is no demonstrated abnormality of the visualized soft tissue structures of the upper abdomen. RAD/Chest PA and Lateral IMPRESSION: No acute cardiopulmonary disease or major interval change. Electronically Signed: João Barkley DO at 17:47 EDT Tel [phone], Service support ,
[2019-04-13 17:15] LABS: Absolute Neutrophil Count 12.7 X10^3/uL (2.0-7.7); Basophil# 0.03 X10^3/uL; Basophil% 0.2 % (0-1); Hematocrit 36.2 % (40-54); Hemoglobin 11.9 g/dL (13.0-16.5); Lymphocyte % 2.9 % (19-41); Mean Corp Hgb Conc 32.9 g/dL (32-36); Mean Corpuscular Hgb 30.1 pg (27.0-32.0); Mean Corpuscular Volume 91.6 fL (80-94); Mean Platelet Vol. 9.5 fl (6.2-12.0); Monocyte# 0.45 X10^3/uL; Monocyte% 3.2 % (0-10); NRBC Flagged by Analyzer 0 % (0-5); Neutrophil # 12.67 X10^3/uL (2.7-7.7); POSITIVE DIFFERENTIAL YES; Platelet Count 237 K/mm3 (150-450); RBC Distribution Width CV 12.6 % (11.6-14.6); RBC Distribution Width SD 41.9 fl (35.1-43.9); Red Blood Count 3.95 M/mm3 (4.6-6.2); White Blood Count 13.9 K/mm3 (4.4-11.0)
[2019-04-13 17:19] LABS: Differential Indicated SCAN CRITERIA MET
[2019-04-13 17:30] LABS: International Normalized Ratio 0.9; Partial Thromboplast Time 22.5 Seconds (24.1-36.2); Prothrombin Time (Protime)PT. 12.4 SECONDS (11.7-14.9)
[2019-04-13 17:31] LABS: Anion Gap 5 (5-15); BUN 27 mg/dL (7-18); BUN/Creat Ratio 18.2 RATIO (10-20); Calcium,Total 8.6 mg/dL (8.5-10.1); Chloride 98 mmol/L (98-107); Creatinine, Serum 1.48 mg/dL (0.70-1.30); EST Glomerular Filtration Rate 50 mL/min (>60); Est Glom Filt Rate - Afr Amer 60 mL/min (>60); Estimated Creatinine Clearance 47.27 ml/min; Glucose 153 mg/dL (74-106); Potassium 4.3 mmol/L (3.5-5.1); Sodium Level 132 mmol/L (136-145)
[2019-04-13] MEDS: Ondansetron 4 MG/2 ML Vial IV (17:36)
[2019-04-13] MEDS: Ipratropium/Albuterol Sulfate 3 ML AMPUL.NEB INHALATION (18:16)
--- NOTE | 2019-04-13 18:17 | ED.VISSUMM ---
- ER Visit Summary Date of Service: 04/13/19 Chief Complaint: Palpitations and high blood pressure History of Present Illness: The patient is a 69 M who presents with high blood pressure and palpitations to be getting worse over the past few days. Patient states it feels like his heart is racing. Patient states he noted his blood pressure to be elevated at home. Patient was recently admitted for a bronchial infection in his lungs. Patient states he is currently on antibiotics at this time. Patient denies any fevers or chills. Patient does admit to some pain in his chest. Patient denies any cough. Patient admits to some shortness of breath. Patient also admits to a headache. Patient denies any nausea or vomiting. Patient denies any diaphoresis. Physical Examination: Vital signs are stable except for an elevated blood pressure. Patient is afebrile. Patient is in no acute distress. Oral mucosa is pink and moist. Oropharynx is clear. Neck is supple. Trachea is midline. There is no JVD noted. Heart was regular rate and rhythm. Lungs are clear and equal bilaterally. There is adequate respiratory effort. Abdomen is soft. Bowel sounds are normal. There is no tenderness. Cranial nerves II through XII are intact. There are no focal motor or sensory deficits noted. Test Results: EKG showed sinus rhythm with a rate of 101. There are nonspecific ST-T wave changes. There are no acute changes. CBC showed a mild leukocytosis of 13.9. Basic metabolic profile shows slightly elevated BUN and creatinine of 27 and 1.48. These were improved compared to previous results.. Troponin was normal. PT with INR and PTT were normal. Emergency Department Course and Treatment: Patient was given a dose of labetalol and Zofran here. Patient's blood pressure improved somewhat with this. Patient was requesting an aerosol treatment. Patient was given a DuoNeb aerosol. Patient was feeling tightness in his chest. Repeat EKG was obtained which was unchanged compared to previous EKG. Patient was given a dose of clonidine here. Patient felt much better after this. Patient states his symptoms have resolved. Patient's blood pressure was 155/83 on reevaluation. Patient wants to go home. Patient was given a prescription for a short course of clonidine. Patient was instructed to follow-up with his primary care physician in 3 to 5 days as scheduled. Recent understood and was agreeable with the plan. All questions were answered. Disposition: Discharge home Impression: Hypertension This note was generated with [employer] dictation software. It may contain incorrect words, spelling, and punctuation that were not noted in review of the chart prior to signing ED Disposition - Plan for ED Patient: Disposition: Home or Assisted Living Diagnosis: Hypertension Instructions: Clonidine, HYPERTENSION, Established, Palpitations Prescriptions: Clonidine HCl [Catapres] 0.1 mg PO DAILY 7 Days #7 tab Prescription Printed Referrals: Lukas Garcia MD [Primary Care Provider] - Keep Ciara appointment
[2019-04-13] MEDS: cloNIDine HCl 0.1 MG Tablet PO (18:33)
--- NOTE | 2019-04-13 18:50 | EKG12_ITS ---
Test Reason : DYSRHYTHMIA Blood Pressure : / mmHG Vent. Rate : 079 BPM Atrial Rate : 079 BPM P-R Int : 124 ms QRS Dur : 068 ms QT Int : 360 ms P-R-T Axes : 079 -19 027 degrees QTc Int : 412 ms Normal sinus rhythm Nonspecific ST abnormality Abnormal ECG Confirmed by VOLODYMYR RING, ROYER ([id number]), associate editor LEE ASTORGA ([id number]) on 04/17/2019 3:40:05 PM Referred By: DALJIT Confirmed By:FERCHO HELM MD
[2019-04-13] MEDS: Morphine 4 MG/ML Syringe IV (19:03)
== END 2019-04-13 20:59 | disposition home or self-care (01) ==
PROVIDERS: Emergency Provider Emergency Medicine; Family Provider Internal Medicine; PCP Internal Medicine
DX: I10 Essential (primary) hypertension (principal); J40 Bronchitis, not specified as acute or chronic; M54.9 Dorsalgia, unspecified; G89.29 Other chronic pain; J44.9 Chronic obstructive pulmonary disease, unspecified; I70.0 Atherosclerosis of aorta; R06.02 Shortness of breath
CPT/HCPCS: 71046; 80048; 84484; 85025; 85610; 85730; 93005; 94640; 99285; A4216; J2405

== ENCOUNTER 2019-05-21 15:58 | Inpatient (IN) | payer MEDICARE, SELFPAY ==
[2019-04-13 16:35] VITALS: BMI 22.4
[2019-05-21] VITALS (7 sets, daily range): BP systolic 107–141; BP diastolic 66–86; PULSE 79–85; RESP 17–20; TEMP 36.4–37; O2SAT 81–100; BMI 21.1; BMI 21.2
--- NOTE | 2019-05-21 16:28 | CT_ITS ---
STUDY: CT BRAIN WITHOUT CONTRAST REASON FOR EXAM: Male, 69 years old. Weakness. RADIATION DOSAGE (If Supplied By Facility): CTDIvol = ( 44.99 ) mGy, DLP = ( 812.98 ) mGycm TECHNIQUE: Transaxial CT imaging of the brain was performed without administration of intravenous contrast material. Individualized dose optimization techniques were used for this CT. COMPARISON: 17 May 2018. FINDINGS: Normal soft tissue structures. Normal calvarium. Normal size ventricles and extra-axial spaces for the patient's age. Normal white matter tracts of the cerebral hemispheres. Normal basal ganglia and thalami. Normal brainstem. Normal cerebellum. There is no intracranial hemorrhage. There are no findings of an acute ischemic infarction. Normal visualized paranasal sinuses. CT/Brain/Head without Contrast IMPRESSION: 1. No evidence of acute intracranial bleed, mass or ischemia. Electronically Signed: Nicola Correia DO at 17:11 EDT , Service support ,
--- NOTE | 2019-05-21 16:28 | EKG12_ITS ---
Test Reason : WEAKNESS Blood Pressure : / mmHG Vent. Rate : 080 BPM Atrial Rate : 080 BPM P-R Int : 130 ms QRS Dur : 078 ms QT Int : 372 ms P-R-T Axes : 078 -02 061 degrees QTc Int : 429 ms Normal sinus rhythm Possible Left atrial enlargement Nonspecific ST and T wave abnormality Abnormal ECG Confirmed by MADDIE RING, LOCO ([id number]), restaurant expeditor LEE ASTORGA ([id number]) on 05/26/2019 10:22:50 AM Referred By: LEIGH Confirmed By:LOCO PERKINS MD
--- NOTE | 2019-05-21 16:29 | RAD_ITS ---
STUDY: X-RAY CHEST REASON FOR EXAM: Male, 69 years old. Cough and weakness. TECHNIQUE: PA and lateral views of the chest. COMPARISON: 28 February 2019 FINDINGS: There is hyperinflation of the lungs consistent with chronic obstructive lung disease (COPD). Prominent chronic appearing interstitial markings are noted. There is no demonstrated pleural abnormality. Normal size heart. Normal mediastinum and shantel. Normal visualized pulmonary arteries. There is atherosclerotic calcification of the aortic arch with tortuosity. Normal visualized thoracic spine. Normal visualized ribs, clavicles, and shoulders. There is no demonstrated abnormality of the visualized soft tissue structures of the upper abdomen. RAD/Chest PA and Lateral IMPRESSION: Chronic COPD related changes with no evidence of focal airspace disease. Underlying COPD exacerbation is not excluded. Electronically Signed: Nicola Correia DO at 17:27 EDT , Service support ,
[2019-05-21] MEDS: Ipratropium/Albuterol Sulfate 3 ML AMPUL.NEB INHALATION ×2 (16:38→22:47)
[2019-05-21] MEDS: Hydrocortisone Sod Succinate 100 MG/2 ML Vial IV (16:42)
[2019-05-21 17:01] LABS: Absolute Lymphocyte Count 1.03 X10^3/uL (0.83-4.51); Basophil# 0.03 X10^3/uL; Basophil% 0.2 % (0-1); Eosinophil# 0.09 X10^3/uL; Eosinophils% 0.5 % (0-5); Hematocrit 38.2 % (40-54); Hemoglobin 12.1 g/dL (13.0-16.5); Lymphocyte # 1.03 X10^3/ul (4.0); Lymphocyte % 6.2 % (19-41); Mean Corp Hgb Conc 31.7 g/dL (32-36); Mean Corpuscular Hgb 29.5 pg (27.0-32.0); Mean Corpuscular Volume 93.2 fL (80-94); Mean Platelet Vol. 10.2 fl (6.2-12.0); Monocyte% 7.2 % (0-10); NRBC Flagged by Analyzer 0 % (0-5); Neutrophil % 84.5 % (47-70); Platelet Count 265 K/mm3 (150-450); RBC Distribution Width CV 15.5 % (11.6-14.6); RBC Distribution Width SD 53.2 fl (35.1-43.9); White Blood Count 16.6 K/mm3 (4.4-11.0)
[2019-05-21 17:09] LABS: International Normalized Ratio 1.1; Prothrombin Time (Protime)PT. 13.6 SECONDS (11.7-14.9)
[2019-05-21 17:10] LABS: Partial Thromboplast Time 50.7 Seconds (24.1-36.2)
[2019-05-21 17:17] LABS: Valproic Acid (Depakene) Level 4 ug/mL (50-100)
[2019-05-21 17:21] LABS: ALB/GLOB Ratio 0.6 RATIO (0.9-2.4); AST(SGOT) 265 U/L (15-37); Alanine Aminotransfer ALT/SGPT 72 U/L (16-61); Albumin, Serum 2.6 g/dL (3.2-5.0); Alkaline Phosphatase 96 U/L (45-117); Anion Gap 17 (5-15); BUN 47 mg/dL (7-18); BUN/Creat Ratio 14.8 RATIO (10-20); Chloride 96 mmol/L (98-107); Creatinine, Serum 3.18 mg/dL (0.70-1.30); EST Glomerular Filtration Rate 21 mL/min (>60); Est Glom Filt Rate - Afr Amer 25 mL/min (>60); Estimated Creatinine Clearance 20.73 ml/min; Globulin 4.4 g/dL (2.2-4.2); Glucose 65 mg/dL (74-106); Sodium Level 135 mmol/L (136-145)
--- NOTE | 2019-05-21 18:10 | ED.VISSUMM ---
- ER Visit Summary Date of Service: 05/21/19 Chief Complaint: Weakness and shortness of breath History of Present Illness: The patient is a [address] Garcia. The patient lives by himself. He is a poor informant. He is not on home O2. He reports he has weakness and shortness of breath began today. However, he appears to be on doxycycline since May 18. Had a prescription for Levaquin on May 12. Patient denies any fever or chills. He has a cough that he resolved. However, he reports that he is very short of breath. He reports he has a little bit of abdominal pain. He also reports that he has had diarrhea for the past 2 days. He is unsure how many times he has had this. He complains of a headache the 6 out of 10 severity. Does have a history of similar headaches. He also complains of generalized weakness. Physical Examination: Vitals: 98.6, 108/86, 85, 20, 81% on room air which is hypoxic. General: Well-nourished and well-developed. Unkempt. Head: Normocephalic atraumatic. Neck: Supple, no lymphadenopathy. No JVD. Nontender. Cardiovascular: Regular rate and rhythm. 2 out of 6 systolic murmur. Respiratory: No respiratory distress. Mild wheezing bilaterally with greatly decreased air movement. Abdominal: Soft, nontender, nondistended, normal bowel sounds. No guarding, rebound, or peritoneal signs. Back: Nontender. Extremities: Nontender, no edema. Skin tears to his elbows bilaterally. No erythema, induration, fluctuance to suggest infection. Skin: Normal color, no rash. Neurologic: Alert and oriented ?3. Cranial nerves II through XII are intact. Normal sensation. 4 out of 5 strength throughout. Psych: Depressed affect. Test Results: EKG is sinus at [address] changes. Is unchanged from last month. CBC shows a white count of 16.6 with an H&H 12.1 and 38.2, segmented neutrophils 85, lymphocytes of 6, and immature granulocytes 1.4%. Chem-7 shows a sodium of 135, chloride 96, glucose 65, BUN 47, creatinine 3.18. His creatinine has ranged between 1.48 and 2.15 and 2019. LFTs show an albumin of 2.65 and a 4.4. ALT is 72 and AST is 265. Coags are normal. Lactic acid is 1. Clinical Impression(s) from Imaging Studies Brain CT 05/21/19 16:28 IMPRESSION: 1. No evidence of acute intracranial bleed, mass or ischemia. Electronically Signed: Nicola CorreiaDO at 17:11 EDT , Service support , Chest X-Ray 05/21/19 16:29 IMPRESSION: Chronic COPD related changes with no evidence of focal airspace disease. Underlying COPD exacerbation is not excluded. Electronically Signed: Nicola CorreiaDO at 17:27 EDT , Service support , Emergency Department Course and Treatment: Patient was treated with albuterol and Atrovent aerosols. He has a history of adrenal insufficiency and was given hydrocortisone rather than Solu-Medrol IV. He was given doxycycline IV. His pulse ox is now in the high 90s on 2 L nasal cannula. Treatment Plan: The patient was discussed with Dr. Segovia. He will be admitted to the hospital for further evaluation and treatment. Disposition: Admitted in improved condition. Impression: 1. COPD exacerbation. 2. Acute kidney injury. 3. Hypoxia. 4. History of adrenal insufficiency. This note was generated with [employer] software. It may contain incorrect words, spelling, and punctuation that were not noted in review of the chart prior to signing ED Disposition - Plan for ED Patient: Referrals: Lukas Garcia MD [Primary Care Provider] -
[2019-05-21] MEDS: 0.9% Normal Saline 1,000 ML 100 ML IV (20:22)
--- NOTE | 2019-05-21 22:12 | HP.PCM_ITS ---
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 Patient lives by himself, is a poor informant. Family were not available. Patient denies any complaints at the time of being seen. Further history was gained from the emergency room doctor. Complain of feeling short of breath and had diarrhea 2 days prior to admission. Vitals in the ED showed patient 90 8.6F, heart rate 85, blood pressure 108/66, respiratory rate was 20, SPO2 was 81% on room air improved 100% on 3 L of oxygen. His admitting blood work showed WBC count of 16.6, hemoglobin 12.1, platelet count 265, INR 1.1, APTT is 50.7, sodium 135, potassium 4.2, chloride 96, bicarbonate 22, BUN 47, creatinine 3.18, previous creatinine is 1.48. Lactic acid 1.0, AST 265, increased from previous 25, ALT 72, increased from previous 31. Troponin [address] scan of the brain showed no acute intracranial process. Chest x-ray showed COPD with no focal airspace disease. Past Medical History Past Medical History (Chronic Problems): Chronic Problems COPD (chronic obstructive pulmonary disease) (Chronic) History of MRSA infection of lungs (Chronic) 2010 and 2015 Adrenal insufficiency (Chronic) Allergies vancomycin Allergy (Verified 05/21/19 16:20) Anaphylaxis Home Medications: Ambulatory Orders Medication Instructions Recorded Albuterol Sulfate 2.5 mg IH DAILY 07/21/18 ALPRAZolam [Xanax] 1 - 2 tab PO TID PRN PRN 05/21/19 Benztropine Mesylate 1 mg PO BID 05/21/19 Budesonide Aerosol [Pulmicort 0.5 mg INHALATION DAILY 05/21/19 Aerosol] Clonidine HCl [Catapres] 0.1 mg PO DAILY 05/21/19 Levothyroxine [Synthroid] 112 mcg PO DAILY 05/21/19 Lorazepam [Ativan] 2 mg PO QHS 05/21/19 Metoprolol Succinate 25 mg PO DAILY 05/21/19 Montelukast [Singulair] 10 mg PO QHS 05/21/19 Nebivolol HCl [Bystolic] 10 mg PO DAILY 05/21/19 Olmesartan/Hydrochlorothiazide 1 ea PO DAILY 05/21/19 [Olmesartan-Hctz 40-12.5 mg Tab] Pantoprazole Sodium [Protonix] 40 mg PO DAILY 05/21/19 Propranolol HCl [Inderal (Beta 20 mg PO DAILY 05/21/19 Perry)] Sertraline HCl [Zoloft] 50 mg PO DAILY 05/21/19 Sucralfate [Carafate] 1 gm PO 4X/DAY 05/21/19 Tiotropium [place] [Spiriva 18 MCG] 1 puff INHALATION DAILY 05/21/19 Valbenazine Tosylate [Ingrezza] 80 mg PO DAILY 05/21/19 traMADol [Ultram (G)] 50 mg PO Q6H PRN PRN 05/21/19 traZODone [Desyrel] 150 mg PO QHS 05/21/19 Surgical History: - - colonoscopy and EGD, bronch 2011, Psychiatric History: No pertinent psych hx Lives: Alone Smoking Status: Former smoker Tobacco Use: Non-smoker Alcohol: None Drugs: None - *Family History Maternal History Items: No pertinent history Paternal History Items: No pertinent history Review of Systems Constitutional: Reports: Anorexia, Malaise, Weakness, Fatigue. Denies: Chills, Fever, Weight Change Eyes: Denies: Blurred vision, Cataracts, Conjunctivae Inflammation, Pain, Redness, Vision Change HEENT: Denies: Difficulty Hearing, Difficulty Swallowing, Head Aches, Hearing Changes, Sinus Congestion, Sinus Drainage Cardiovascular: Denies: Chest Pain, Claudication, Orthopnea, Palpitations, Paroxysmal Noc. Dyspnea Respiratory: Reports: Shortness of Breath, Shortness of breath at rest, Shortness of breath upon exertion. Denies: Cough, Sputum production Gastrointestinal: Denies: Abdominal Pain, Hematemesis, Hematochezia, Nausea, Vomiting Genitourinary: Denies: Dysuria Musculoskeletal: Denies: Joint Pain, Joint Tenderness Skin: Denies: Rash, Wounds Neurological: Denies: Numbness, Tingling, Focal weakness Psychiatric: Denies: Anxiety, Depression, Homicidal Ideations, Suicidal Ideations Hematologic/ Lymphatic: Denies: Easy Bruising, Easy Bleeding VTE Information - Inpt Only VTE Present on Admission: No VTE Pharm Prophylaxis ordered?: Yes - Physical Exam General: Alert, Cooperative, Confused, - - sleepy, responsive to questions HEENT: Atraumatic, PERRLA, EOMI, Normocephalic Oral: Moist Mucosa Neck: Supple, Negative Carotid Bruits, Negative Hepatojugular Reflux Lungs: Normal air movement, Diminished Cardiovascular: Regular rate, Regular Rhythm, Normal S1, Normal S2, No murmurs Abdomen: Bowel Sounds Present, Soft, Non Tender, Non-Distended, No Hepato- splenomegaly Extremities: No edema Skin: - - multiple skin tears on extremities Musculoskeletal: No Tenderness to Palpation of Joints or Extremities Lymphatic: No Cervical, Supraclavicular, or Inguinal Adenopathy Neurological: Cranial nerves II-XII grossly intact, Neuro grossly intact Psych/Mental Status: Normal Affect, Appropriate Vital Signs Temp Pulse Resp BP Pulse Ox 97.6 F L 82 18 122/72 H 99 05/21/19 19:05 05/21/19 19:05 05/21/19 19:05 05/21/19 19:05 05/21/19 19:05 Oxygen Flow Rate (L/min) 3 Oxygen Delivery Method Nasal Cannula Weight: 68.8 kg Body Mass Index (BMI) 21.1 Intake and Output for Last 24 Hours 05/19/19 05/20/19 05/21/19 23:59 23:59 23:59 Intake Total 760 / 760 Balance 760 / 760 Laboratory Tests Past 24 Hrs 05/21/19 05/21/19 05/21/19 16:30 16:30 16:30 WBC 16.6 H RBC 4.10 L Hgb 12.1 L Hct 38.2 L MCV 93.2 MCH 29.5 MCHC 31.7 L RDW Std Deviation 53.2 H RDW Coeff of Bernie 15.5 H Plt Count 265 MPV 10.2 Immature Gran % (Auto) 1.400 H Neut % (Auto) 84.5 H Lymph % (Auto) 6.2 L Newton % (Auto) 7.2 Eos % (Auto) 0.5 Baso % (Auto) 0.2 Absolute Neuts (auto) 14.0 H Absolute Lymphs (auto) 1.03 Nucleated RBC % 0 PT 13.6 INR 1.1 APTT 50.7 H Sodium 135 L Potassium 4.0 Chloride 96 L Carbon Dioxide 22.0 Anion Gap 17 H BUN 47 H Creatinine 3.18 H Estim Creat Clear Calc 20.73 Est GFR (MDRD) Af Amer 25 L Est GFR (MDRD) Non-Af 21 L BUN/Creatinine Ratio 14.8 Glucose 65 L Lactic Acid Calcium 9.0 Total Bilirubin 0.80 AST 265 H ALT 72 H Alkaline Phosphatase 96 Total Creatine Kinase Troponin I 0.324 H Total Protein 7.0 Albumin 2.6 L Globulin 4.4 H Albumin/Globulin Ratio 0.6 L Valproic Acid 05/21/19 05/21/19 05/21/19 16:30 16:30 21:22 WBC RBC Hgb Hct MCV MCH MCHC RDW Std Deviation RDW Coeff of Bernie Plt Count MPV Immature Gran % (Auto) Neut % (Auto) Lymph % (Auto) Newton % (Auto) Eos % (Auto) Baso % (Auto) Absolute Neuts (auto) Absolute Lymphs (auto) Nucleated RBC % PT INR APTT Sodium Potassium Chloride Carbon Dioxide Anion Gap BUN Creatinine Estim Creat Clear Calc Est GFR (MDRD) Af Amer Est GFR (MDRD) Non-Af BUN/Creatinine Ratio Glucose Lactic Acid 1.0 Calcium Total Bilirubin AST ALT Alkaline Phosphatase Total Creatine Kinase Pending Troponin I Total Protein Albumin Globulin Albumin/Globulin Ratio Valproic Acid 4 L 05/21/19 21:22 WBC RBC Hgb Hct MCV MCH MCHC RDW Std Deviation RDW Coeff of Bernie Plt Count MPV Immature Gran % (Auto) Neut % (Auto) Lymph % (Auto) Newton % (Auto) Eos % (Auto) Baso % (Auto) Absolute Neuts (auto) Absolute Lymphs (auto) Nucleated RBC % PT INR APTT Sodium Potassium Chloride Carbon Dioxide Anion Gap BUN Creatinine Estim Creat Clear Calc Est GFR (MDRD) Af Amer Est GFR (MDRD) Non-Af BUN/Creatinine Ratio Glucose Lactic Acid Calcium Total Bilirubin AST ALT Alkaline Phosphatase Total Creatine Kinase Troponin I Pending Total Protein Albumin Globulin Albumin/Globulin Ratio Valproic Acid Assessment/Plan All Active Problems Sepsis (Acute) Pneumonia (Acute) CORNELL (acute kidney injury) (Acute) 69 year old M with past medical history of COPD, not on oxygen, who has had multiple hospital stays, recently discharged from [facility] in with progressive weakness and shortness of breath. 1. Probable sepsis secondary to acute COPD exacerbation, likely viral in etiology Remote history of MRSA pneumonia Blood cultures are pending Started on IV doxycycline, will continue same 2. Acute COPD exacerbation, unclear etiology, on 4 L of oxygen Respiratory panel ordered; results pending Chest x-ray shows no acute cardiopulmonary process We will continue with breathing treatment, IV hydrocortisone on account of history of adrenal insufficiency, encourage use of incentive spirometer Wean off oxygen for SPO2 more than 94% 3. CORNELL on probably CKD, admitting creatinine is 2.18, likely prerenal Would continue IV fluids, urine sodium, urine creatinine, repeat BMP in a.m. 4. Chronic adrenal insufficiency, currently on hydrocortisone IV 5. Probable falls, reported to nurse from family, PT and OT to evaluate and treat 6. Probable polypharmacy, med list not updated because family could not verify. Will get records of recent stay from [facility] 7. DVT prophylaxis with heparin subcu Code Visit Inpatient E&M: 84676 Subs Hosp L2
[2019-05-21 22:45] LABS: Bedside Glucose 126 mg/dL (70-110)
[2019-05-21 23:15] LABS: CPK Total, Creatine Kinase 4287 U/L (39-308)
[2019-05-22] VITALS (16 sets, daily range): BP systolic 86–117; BP diastolic 55–75; PULSE 78–135; RESP 16–18; TEMP 36.6–37.7; O2SAT 95–97
[2019-05-22] MEDS: Hydrocortisone Sod Succinate 100 MG/2 ML Vial 50 MG IV ×5 (00:01→23:03)
[2019-05-22 02:43] LABS: Bacteria 0 SEEN /hpf (None Seen); Mucous, Urine 0 SEEN /hpf (<or=2+); Red Blood Cells-Urine 0 SEEN /hpf (0-5); Squamous Epithelial Cells - UA 0 SEEN /hpf (0-5); White Blood Cells 0 SEEN /hpf (0-5)
[2019-05-22 03:03] LABS: Urine Sodium 82 mmol/L (Not Establ.)
[2019-05-22 03:04] LABS: Color, Urine Yellow (Yellow); Glucose, Dipstick Normal (Normal); Leukocyte Esterase-Dipstick Negative /ul (Negative); Nitrite-Dipstick Negative (Negative); Occult Blood-Urine 150 /ul (Negative); Protein-Dipstick 15 mg/dl (Negative); Urine Bilirubin Dipstick Negative (Negative); Urine Clarity Clear (Clear); Urine Urobilinogen Normal (Normal)
[2019-05-22 03:09] LABS: Ketone-Dipstick 150 mg/dl (Negative)
--- NOTE | 2019-05-22 03:24 | PCM.PN.BLA ---
Progress Note Nurse reports SBP 85;MAP 65. Give NSS 500ml bolus. Continue maintenance infusion. Stop Doxycycline. Start azithromycin and Rocephin.
[2019-05-22 04:03] LABS: Absolute Lymphocyte Count 0.25 X10^3/uL (0.83-4.51); Basophil# 0.02 X10^3/uL; Basophil% 0.1 % (0-1); Differential Indicated SCAN CRITERIA MET; Hematocrit 29.2 % (40-54); Hemoglobin 9.3 g/dL (13.0-16.5); Lymphocyte # 0.25 X10^3/ul (4.0); Lymphocyte % 1.5 % (19-41); Mean Corp Hgb Conc 31.8 g/dL (32-36); Mean Corpuscular Hgb 29.8 pg (27.0-32.0); Mean Corpuscular Volume 93.6 fL (80-94); Mean Platelet Vol. 9.8 fl (6.2-12.0); Monocyte# 0.35 X10^3/uL; Monocyte% 2.1 % (0-10); NRBC Flagged by Analyzer 0 % (0-5); Neutrophil # 15.96 X10^3/uL (2.7-7.7); Neutrophil % 95.2 % (47-70); POSITIVE DIFFERENTIAL YES; Platelet Count 221 K/mm3 (150-450); RBC Distribution Width CV 15.8 % (11.6-14.6); RBC Distribution Width SD 53.9 fl (35.1-43.9); Red Blood Count 3.12 M/mm3 (4.6-6.2); White Blood Count 16.8 K/mm3 (4.4-11.0)
[2019-05-22] MEDS: Ceftriaxone 1 GM/50 ML BAG IV (04:18)
[2019-05-22 04:32] LABS: ALB/GLOB Ratio 0.6 RATIO (0.9-2.4); AST(SGOT) 153 U/L (15-37); Alanine Aminotransfer ALT/SGPT 55 U/L (16-61); Albumin, Serum 2.1 g/dL (3.2-5.0); Alkaline Phosphatase 80 U/L (45-117); Anion Gap 18 (5-15); BUN 46 mg/dL (7-18); BUN/Creat Ratio 18.2 RATIO (10-20); Calcium,Total 7.7 mg/dL (8.5-10.1); Chloride 101 mmol/L (98-107); Creatinine, Serum 2.53 mg/dL (0.70-1.30); EST Glomerular Filtration Rate 27 mL/min (>60); Est Glom Filt Rate - Afr Amer 32 mL/min (>60); Estimated Creatinine Clearance 26.06 ml/min; Globulin 3.7 g/dL (2.2-4.2); Glucose 127 mg/dL (74-106); Potassium 4.6 mmol/L (3.5-5.1); Protein, Total 5.8 g/dL (6.4-8.2); Sodium Level 135 mmol/L (136-145)
[2019-05-22 04:34] LABS: CPK Total, Creatine Kinase 1115 U/L (39-308)
[2019-05-22 04:47] LABS: Differential Comment SCANNED
--- NOTE | 2019-05-22 05:29 | NURSING ---
While admitting pt on 05/21 pt's children spoke with this nurse in hallway. Per pt's children they are becoming worried about pt d/t his many recent admissions.They state that pt wants to be doing things himself, so is obstinate in allowing children to help with medications. Children want to make sure that case management is involved, and would like to see if it would be possible to have an assessment to determine how well pt can make his own decisions. Pt's son also reports that they are not sure about pt's insurance. This nurse informed pt's son that case management has been consulted and can address these concerns with them. It would be best if pt's medical POA, daughter Merry, can provide a copy of paperwork as well. Family voiced understanding. GUERRERO Berman
[2019-05-22] MEDS: Insulin Lispro 100 UNIT/ML INSULN.PEN SC ×4 (06:12→21:17)
[2019-05-22] MEDS: Heparin Injection (Vial) 5,000 UNIT/ML VIAL 5000 UNIT SC ×3 (06:12→21:12)
[2019-05-22 06:26] LABS: Bedside Glucose 177 mg/dL (70-110)
[2019-05-22] MEDS: Ipratropium/Albuterol Sulfate 3 ML AMPUL.NEB INHALATION ×4 (07:02→19:15)
[2019-05-22] MEDS: 0.9% Normal Saline 1,000 ML 100 ML IV ×2 (07:21→19:57)
--- NOTE | 2019-05-22 08:59 | CT_ITS ---
STUDY: CT CHEST WITHOUT CONTRAST REASON FOR EXAM: Male, 69 years old. Shortness of breath. Sepsis. COPD. Acute renal injury. RADIATION DOSAGE (If Supplied By Facility): CTDIvol = ( 11.79 ) mGy, DLP = ( 477.5 ) mGycm TECHNIQUE: Transaxial imaging was performed without the administration of intravenous contrast material. Multiplanar coronal and sagittal images were reformatted. Individualized dose optimization techniques were used for this CT. COMPARISON: Comparison is made with prior study dated April 19, 2017. FINDINGS: There is a new 8.8 mm x 20.6 mm spiculated nodule in the anterior right upper lobe. There is evidence of emphysematous changes in both lungs. Mild increased markings at the lung bases suggestive of scarring. Minimal pleural thickening at the left lung base. There is no demonstrated pleural abnormality. There are calcifications of the coronary arteries. There are multiple small lymph nodes within the mediastinum, which are normal in size and morphology most compatible with reactive lymph hyperplasia. Normal hilar regions. Normal unenhanced pulmonary arteries. There is atherosclerotic calcification of the aortic arch. There are multi-level degenerative changes of the thoracic spine. There is no demonstrated abnormality of the visualized upper abdomen. CT/Chest without Contrast IMPRESSION: New 20.6 mm x 8.8 mm spiculated nodule in the right upper lobe as described. A neoplastic process should be ruled out. Mild degree of emphysematous changes and scarring at the lung bases. Electronically Signed: Blaze Mcgarry, at 10:37 EDT , Service support ,
[2019-05-22] MEDS: Glucerna Shake 120 ML LIQUID PO (10:14)
--- NOTE | 2019-05-22 10:43 | NURSING ---
wound photo: left arm
--- NOTE | 2019-05-22 10:43 | NURSING ---
wound photo: right arm
--- NOTE | 2019-05-22 10:44 | NURSING ---
inserted straight cath using sterile technique at 0840 with clinical instructor present. Urine output of 400mL clear, dark bette urine. Pt tolerated well, no distress noted.
--- NOTE | 2019-05-22 10:57 | CASEMGMT ---
Assessment- SW sat with patient and completed assessment. Living situation- Patient lives alone in the townhouses at [facility]. His home is 1 level and he has no entry steps. PCP: Dr Garcia Specialists: When SW asked if he sees any specialists he said, yes. However he could not tell SW his/her name(s) or what kind of specialist. SW asked do you see a heart doctor and he said, yes. Pharmacy: [facility] DME: None ADL's/IADL's: Patient states he drives, bathes himself, and manages his meds. He said he cooks and cleans with his daughter's help. Past SNF/rehab: None Past HH: Yes. Could not remember agency LW: Patient said he is working on it POA: Patient said he is working on it SW reviewed chart and noted family's concerns. SW completed assessment with patient. He mostly answered yes or no and not elaborate. SW asked him if the doctor recommended someone help him with his meds would he allow someone to help. At first patient said, no. SW asked him why he wouldn't let anyone help him. He said, Because I know my meds by heart. SW told him that when he came into the hospital he did not know his medications. He then said, Maybe I need help. SW told him that is okay and it can get confusing sorting out medications. He agreed. SW then asked him if he knew the season right now and he said, Beautiful fall. SW asked if he knew the date and he said, No mamm I don't. SW asked him if he knew what day it was. Patient then asked SW, Do you know if I had my medications today? SW told him SW can check with his nurse. SW went back to patient's room to let him know that he did get his medicines. SW asked patient if it was okay for SW to talk with his daughter, Merry. He said, Of course, absolutely. Plan: SW will see how patient does with therapy. SW will also talk with patient's daughter, Merry. Marlen WEN
--- NOTE | 2019-05-22 11:30 | CASEMGMT ---
SW called patient's daughter, Merry. KAE introduced self and role at [facility]. SW told her that SW spoke with patient and it is concerning that he is home alone. SW told her he may need assisted living. SW told her that he did not do well with therapy and will need to go to a retirement facility for rehab. She said they would prefer [facility]. She said she is not sure he will agree. SW told her SW and the physician will talk with him. Marlen PORTILLO MSW
[2019-05-22 11:41] LABS: Bedside Glucose 226 mg/dL (70-110)
--- NOTE | 2019-05-22 12:21 | NURSING ---
Inserted zavala per protocol. Clinical instructor in room. Pt experienced pain upon advancement. Zavala removed. Awaiting coude catheter. Pt free of catheter pain upon discontinuation.
[2019-05-22] MEDS: Acetaminophen 325 MG Tablet 650 MG PO (12:38)
--- NOTE | 2019-05-22 13:13 | PCM.CONS.PUL ---
Reason for Consult Date of Consultation: 05/15/19 Reason for Consultation: Lung nodule History of Present Illness: The patient is a 69-year-old male, with a history as outlined below, who presented to the emergency department on May 21 with complaints of shortness of breath. The patient has a known history of severe COPD based upon pulmonary function studies completed in 2016. I do believe that he was previously being followed by Dr. Hurley. However, records from the [facility] medical record were not available to me today. The patient was apparently just admitted to [facility] and treated for a COPD exacerbation. The patient states that he currently utilizes Advair and Spiriva in his home environment. However, it is clear from my conversation with him, that he is not using them appropriately. While he does have a prior extensive smoking history, he does report that he previously quit. However, he cannot recall how long it has been. A CT chest from April 2017 did reveal evidence of a focal area of pneumonia along with a small apical nodule in the right upper lung field. The patient denies that he utilizes supplemental oxygen at home. He apparently resides within a home by himself. On presentation to the emergency department, the patient was noted to be afebrile and hemodynamically stable. Laboratory evaluation revealed an elevated white blood cell count to 16,000. Chemistry profile was notable for acute kidney injury with a creatinine of 3.18. AST and ALT were elevated. Total CK was noted to be 4287. Initial troponin was elevated to 0.324. Head CT was unrevealing. A plain film chest x-ray revealed no acute cardiopulmonary process. The patient was subsequently admitted to the hospital and placed on doxycycline, bronchodilators and steroids. A CT chest was subsequently obtained on the morning of May 22 and revealed evidence of a 20 x 8.8 mm nodule in the right upper lobe. Underlying emphysematous changes were noted bilaterally. There was no evidence of an acute infiltrative process. Past Medical History Past Medical History (Chronic Problems): Chronic Problems COPD (chronic obstructive pulmonary disease) (Chronic) History of MRSA infection of lungs (Chronic) 2010 and 2015 Adrenal insufficiency (Chronic) Allergies vancomycin Allergy (Verified 05/21/19 16:20) Anaphylaxis Home Medications: Ambulatory Orders Medication Instructions Recorded Albuterol Sulfate 2.5 mg IH DAILY 07/21/18 ALPRAZolam [Xanax] 1 - 2 tab PO TID PRN PRN 05/21/19 Benztropine Mesylate 1 mg PO BID 05/21/19 Budesonide Aerosol [Pulmicort 0.5 mg INHALATION DAILY 05/21/19 Aerosol] Clonidine HCl [Catapres] 0.1 mg PO DAILY 05/21/19 Levothyroxine [Synthroid] 112 mcg PO DAILY 05/21/19 Lorazepam [Ativan] 2 mg PO QHS 05/21/19 Metoprolol Succinate 25 mg PO DAILY 05/21/19 Montelukast [Singulair] 10 mg PO QHS 05/21/19 Nebivolol HCl [Bystolic] 10 mg PO DAILY 05/21/19 Olmesartan/Hydrochlorothiazide 1 ea PO DAILY 05/21/19 [Olmesartan-Hctz 40-12.5 mg Tab] Pantoprazole Sodium [Protonix] 40 mg PO DAILY 05/21/19 Propranolol HCl [Inderal (Beta 20 mg PO DAILY 05/21/19 Perry)] Sertraline HCl [Zoloft] 50 mg PO DAILY 05/21/19 Sucralfate [Carafate] 1 gm PO 4X/DAY 05/21/19 Tiotropium Eloy [Spiriva 18 MCG] 1 puff INHALATION DAILY 05/21/19 Valbenazine Tosylate [Ingrezza] 80 mg PO DAILY 05/21/19 traMADol [Ultram (G)] 50 mg PO Q6H PRN PRN 05/21/19 traZODone [Desyrel] 150 mg PO QHS 05/21/19 Surgical History: - - colonoscopy and EGD, bronch 2011, Psychiatric History: No pertinent psych hx Lives: Alone Smoking Status: Former smoker Tobacco Use: Non-smoker Alcohol: None Drugs: None - *Family History Maternal History Items: No pertinent history Paternal History Items: No pertinent history Review of Systems Constitutional: Denies: Chills, Fever Eyes: Denies: Blurred vision, Double vision HEENT: Denies: Head Aches, Sinus Congestion, Sinus Drainage Cardiovascular: Denies: Chest Pain, Palpitations Respiratory: Reports: Shortness of Breath Gastrointestinal: Denies: Abdominal Pain, Nausea, Vomiting Genitourinary: Denies: Dysuria Musculoskeletal: Denies: Joint Pain, Joint Tenderness Skin: Denies: Rash, Wounds Neurological: Denies: Numbness, Tingling, Focal weakness Psychiatric: Denies: Anxiety, Depression, Homicidal Ideations, Suicidal Ideations Hematologic/ Lymphatic: Reports: Anemia Objective: The patient's most recent lab work, culture data and imaging studies have all been personally reviewed. Blood and urine cultures are pending. Respiratory viral panel is pending. - Physical Exam Vitals/I&O's: Vital Signs Temp Pulse Resp BP Pulse Ox 98.9 F 92 16 113/57 L 96 05/22/19 08:15 05/22/19 08:15 05/22/19 08:15 05/22/19 08:15 05/22/19 08:15 Oxygen Flow Rate (L/min) 2 Oxygen Delivery Method Nasal Cannula Weight: 148 lb 12.992 oz Body Mass Index (BMI) 21.1 Intake and Output for Last 24 Hours 05/20/19 05/21/19 05/22/19 23:59 23:59 23:59 Intake Total 760 / 760 2278.25 / 2278.25 Output Total 0 / 0 1050 / 1050 Balance 760 / 760 1228.25 / 1228.25 General: Alert, Cooperative, No apparent distress, Confused HEENT: Atraumatic, PERRLA, Normocephalic Oral: Dry Mucosa Neck: Supple, No Nodes, Trachea Midline Lungs: No rhonchi, No wheeze, No rales, Diminished Cardiovascular: Regular rate, Regular Rhythm, Normal S1, Normal S2, No murmurs Abdomen: Bowel Sounds Present, Soft, Non Tender Extremities: No clubbing, No cyanosis, No edema Skin: No breakdown Musculoskeletal: No Tenderness to Palpation of Joints or Extremities Lymphatic: No Cervical, Supraclavicular, or Inguinal Adenopathy Neurological: Cranial nerves II-XII grossly intact, Neuro grossly intact Psych/Mental Status: Normal Affect, Appropriate Laboratory Results 05/21/19 16:30: WBC 16.6 H, RBC 4.10 L, Hgb 12.1 L, Hct 38.2 L, MCV 93.2, MCH 29.5, MCHC 31.7 L, RDW Std Deviation 53.2 H, RDW Coeff of Bernie 15.5 H, Plt Count 265, MPV 10.2, Immature Gran % (Auto) 1.400 H, Neut % (Auto) 84.5 H, Lymph % (Auto) 6.2 L, Collin % (Auto) 7.2, Eos % (Auto) 0.5, Baso % (Auto) 0.2, Absolute Neuts (auto) 14.0 H, Absolute Lymphs (auto) 1.03, Nucleated RBC % 0 05/21/19 16:30: PT 13.6, INR 1.1, APTT 50.7 H 05/21/19 16:30: Sodium 135 L, Potassium 4.0, Chloride 96 L, Carbon Dioxide 22.0, Anion Gap 17 H, BUN 47 H, Creatinine 3.18 H, Estim Creat Clear Calc 20.73, Est GFR (MDRD) Af Amer 25 L, Est GFR (MDRD) Non-Af 21 L, BUN/Creatinine Ratio 14.8, Glucose 65 L, Calcium 9.0, Total Bilirubin 0.80, AST 265 H, ALT 72 H, Alkaline Phosphatase 96, Troponin I 0.324 H, Total Protein 7.0, Albumin 2.6 L, Globulin 4.4 H, Albumin/Globulin Ratio 0.6 L 05/21/19 16:30: Lactic Acid 1.0 05/21/19 16:30: Valproic Acid 4 L 05/21/19 21:22: Total Creatine Kinase 4287 H 05/21/19 21:22: Troponin I 0.165 H 05/21/19 22:17: POC Glucose 126 H 05/22/19 00:40: Troponin I 0.133 H 05/22/19 02:15: Urine Color Yellow, Urine Clarity Clear, Urine pH 6.0, Ur Specific [place] 1.020, Urine Protein 15 H, Urine Glucose (UA) Normal, Urine Ketones 150 H, Urine Occult Blood 150 H, Urine Nitrite Negative, Urine Bilirubin Negative, Urine Urobilinogen Normal, Ur Leukocyte Esterase Negative, Urine RBC 0 SEEN, Urine WBC 0 SEEN, Ur Squamous Epith Cells 0 SEEN, Urine Bacteria 0 SEEN, Urine Mucus 0 SEEN 05/22/19 02:15: Urine Creatinine 196.00 05/22/19 02:15: Ur Random Sodium 82 05/22/19 03:46: WBC 16.8 H, RBC 3.12 L, Hgb 9.3 L, Hct 29.2 L, MCV 93.6, MCH 29.8, MCHC 31.8 L, RDW Std Deviation 53.9 H, RDW Coeff of Bernie 15.8 H, Plt Count 221, MPV 9.8, Immature Gran % (Auto) 1.100 H, Neut % (Auto) 95.2 H, Lymph % (Auto) 1.5 L, Collin % (Auto) 2.1, Eos % (Auto) 0.0, Baso % (Auto) 0.1, Absolute Neuts (auto) 16.0 H, Absolute Lymphs (auto) 0.25 L, Nucleated RBC % 0, Differential Comment SCANNED 05/22/19 03:46: Sodium 135 L, Potassium 4.6, Chloride 101, Carbon Dioxide 16.0 L, Anion Gap 18 H, BUN 46 H, Creatinine 2.53 H, Estim Creat Clear Calc 26.06, Est GFR (MDRD) Af Amer 32 L, Est GFR (MDRD) Non-Af 27 L, BUN/Creatinine Ratio 18.2, Glucose 127 H, Calcium 7.7 L, Total Bilirubin 0.70, AST 153 H, ALT 55, Alkaline Phosphatase 80, Total Protein 5.8 L, Albumin 2.1 L, Globulin 3.7, Albumin/Globulin Ratio 0.6 L 05/22/19 03:46: Troponin I 0.091 H 05/22/19 03:46: Total Creatine Kinase 1115 H 05/22/19 06:06: POC Glucose 177 H 05/22/19 11:34: POC Glucose 226 H Current Medications Acetaminophen (Tylenol) 650 mg PO Q6H PRN PRN PRN Reason: Pain Score 1-3/Temp > 100.7 F Last Admin: 05/22/19 12:38 Dose: 650 mg Documented by: Al Hydroxide/Mg Hydroxide (Mylanta Ii) 30 ml PO Q6H PRN PRN PRN Reason: Gastric Burning Albuterol Sulfate (Ventolin Aerosols) 2.5 mg INHALATION Q2H PRN PRN PRN Reason: SOB/Wheezing Albuterol/Ipratropium (Duoneb) 3 ml INHALATION Q4HWA.RT KALIN Last Admin: 05/22/19 10:22 Dose: 3 ml Documented by: Dextrose (D50w Syringe) 0 gm IV X1 PRN; Protocol PRN Reason: Hypoglycemia Glucagon () 1 mg IM .X1 PRN PRN Reason: Hypoglycemia Heparin Sodium (Porcine) (Heparin Na) 5,000 unit SC Q8 KALIN Last Admin: 05/22/19 06:12 Dose: 5,000 unit Documented by: Hydrocortisone Sodium Succinate (Solu-Cortef) 50 mg IV Q6 KALIN Last Admin: 05/22/19 11:41 Dose: 50 mg Documented by: Sodium Chloride () 1,000 mls @ 100 mls/hr IV .Q10H KALIN Stop: 05/22/19 15:39 Last Infusion: 05/22/19 09:51 Dose: 100 mls/hr Documented by: Sodium Chloride () 250 mls @ 15 mls/hr IV .[id number] PRN PRN Reason: Saline Flush Last Infusion: 05/22/19 09:10 Dose: 0 mls/hr Documented by: Piperacillin Sod/Tazobactam (Sod 3.375 gm/ Sodium Chloride) 50 mls @ 12.5 mls/hr IV Q8 KALIN Doxycycline Hyclate 100 mg/ (Dextrose) 260 mls @ 250 mls/hr IV Q12 KALIN Last Infusion: 05/22/19 12:17 Dose: Infused Documented by: Insulin Human Lispro (Humalog Kwikpen (Bkc)) 0 unit SC ACHS COUNT INCLUDES THE [facility]; Protocol Last Admin: 05/22/19 11:40 Dose: 2 u Documented by: Magnesium Hydroxide (Milk Of Magnesia) 30 ml PO DAILY PRN PRN PRN Reason: Constipation Nitroglycerin (Nitrostat) 0.4 mg SUBLINGUAL Q5M PRN PRN Reason: CARDIAC/CHEST PAIN Nutritional Formula (Lactose Free) (Ensure Enlive) 120 ml PO 4X/DAY COUNT INCLUDES THE [facility] Sodium Chloride () 5 - 15 ml IV UD PRN PRN Reason: SALINE FLUSH Throat Lozenges (Cepacol Sore Throat Lozenge) 1 lozenge MUCOUS MEM Q2H PRN PRN PRN Reason: Sore Throat/Cough Assessment/Plan All Active Problems Sepsis (Acute) Pneumonia (Acute) CORNELL (acute kidney injury) (Acute) RECOMMENDATIONS: 1. Consider CT-guided lung biopsy, if feasible, while the patient is admitted to the hospital. 2. Continue bronchodilators and antibiotics, pending infectious work-up. 3. Transition from stress dose steroids to IV methylprednisone. 4. Wean supplemental oxygen to maintain saturations at or above 90%. 5. Encourage incentive spirometer use and mobilize patient as tolerated. IMPRESSIONS: 1. Pulmonary nodule The patient does have evidence of a right upper lobe lung nodule, which was not previously noted on CT chest in 2017. The patient does have a prior extensive smoking history and therefore this lesion would be of concern. If feasible, consideration can be given to obtaining a CT-guided lung biopsy while the patient is still admitted to the hospital. In addition, I would recommend that outside records from the [facility] be obtained to evaluate for the chronicity of this lesion. 2. Acute hypoxemic respiratory insufficiency, likely secondary to COPD with exacerbation Potentially related to viral etiology versus under treatment of baseline COPD due to possible compliance issues. The patient may also have underlying tracheobronchitis. For now, agree with continuing antibiotics, pending infectious work-up. Continue bronchodilators. Stress dose steroids can be transition to methylprednisone. Wean supplemental oxygen to maintain saturations at or above 90%. Encourage incentive spirometer use and mobilize patient as tolerated. 3. Acute on chronic kidney disease Likely prerenal in etiology. Improved with supplemental IV fluid hydration. Continue to monitor urine output. No indication for renal replacement therapy at this time. 4. Poor historian/hypertension/GERD/depression/hypothyroidism Complicates care, management, recovery and prognosis. Continue home medications as indicated. This note was generated with [employer] dictation software. It may contain incorrect words, spelling, and punctuation that were not noted in checking the note before signing. Code Visit Inpatient E&M: 54799 Init Hosp L3
--- NOTE | 2019-05-22 13:30 | PN_ITS ---
<Clint Limon - Last Filed: 05/22/19 13:30> Subjective: Pt cannot remember why he was in [facility] last week, he states his breathing was bad but cannot elaborate. Today he reports ongoing dyspnea and cough with white sputum production. No blood. No CP. No fever/ chills. He went home by himself from the hospital and reports he has been laying in bed for several days. He has pressure wounds and evidence of rhabdo. - Physical Exam Vitals/I&O's: Vital Signs Temp Pulse Resp BP Pulse Ox 98.9 F 92 16 113/57 L 96 05/22/19 08:15 05/22/19 08:15 05/22/19 08:15 05/22/19 08:15 05/22/19 08:15 Oxygen Flow Rate (L/min) 2 Oxygen Delivery Method Nasal Cannula Weight: 148 lb 12.992 oz Body Mass Index (BMI) 21.1 Intake and Output for Last 24 Hours 05/20/19 05/21/19 05/22/19 23:59 23:59 23:59 Intake Total 760 / 760 2278.25 / 2278.25 Output Total 0 / 0 1050 / 1050 Balance 760 / 760 1228.25 / 1228.25 General: Alert, Cooperative, Confused HEENT: Atraumatic, PERRLA, EOMI, Normocephalic Neck: Supple, No JVD, Negative Carotid Bruits Lungs: Clear to auscultation, Diminished Cardiovascular: Regular rate, No murmurs Abdomen: Bowel Sounds Present, Soft, Non Tender Extremities: No edema, Capillary Refill Less than 3 Seconds Skin: No rashes, No breakdown Musculoskeletal: No Tenderness to Palpation of Joints or Extremities Neurological: Cranial nerves II-XII grossly intact Psych/Mental Status: Normal Affect, Appropriate Laboratory Results 05/21/19 16:30: WBC 16.6 H, RBC 4.10 L, Hgb 12.1 L, Hct 38.2 L, MCV 93.2, MCH 29.5, MCHC 31.7 L, RDW Std Deviation 53.2 H, RDW Coeff of Bernie 15.5 H, Plt Count 265, MPV 10.2, Immature Gran % (Auto) 1.400 H, Neut % (Auto) 84.5 H, Lymph % (Auto) 6.2 L, [place] % (Auto) 7.2, Eos % (Auto) 0.5, Baso % (Auto) 0.2, Absolute Neuts (auto) 14.0 H, Absolute Lymphs (auto) 1.03, Nucleated RBC % 0 05/21/19 16:30: PT 13.6, INR 1.1, APTT 50.7 H 05/21/19 16:30: Sodium 135 L, Potassium 4.0, Chloride 96 L, Carbon Dioxide 22.0, Anion Gap 17 H, BUN 47 H, Creatinine 3.18 H, Estim Creat Clear Calc 20.73, Est GFR (MDRD) Af Amer 25 L, Est GFR (MDRD) Non-Af 21 L, BUN/Creatinine Ratio 14.8, Glucose 65 L, Calcium 9.0, Total Bilirubin 0.80, AST 265 H, ALT 72 H, Alkaline Phosphatase 96, Troponin I 0.324 H, Total Protein 7.0, Albumin 2.6 L, Globulin 4.4 H, Albumin/Globulin Ratio 0.6 L 05/21/19 16:30: Lactic Acid 1.0 05/21/19 16:30: Valproic Acid 4 L 05/21/19 21:22: Total Creatine Kinase 4287 H 05/21/19 21:22: Troponin I 0.165 H 05/21/19 22:17: POC Glucose 126 H 05/22/19 00:40: Troponin I 0.133 H 05/22/19 02:15: Urine Color Yellow, Urine Clarity Clear, Urine pH 6.0, Ur Specific [place] 1.020, Urine Protein 15 H, Urine Glucose (UA) Normal, Urine Ketones 150 H, Urine Occult Blood 150 H, Urine Nitrite Negative, Urine Bilirubin Negative, Urine Urobilinogen Normal, Ur Leukocyte Esterase Negative, Urine RBC 0 SEEN, Urine WBC 0 SEEN, Ur Squamous Epith Cells 0 SEEN, Urine Bacteria 0 SEEN, Urine Mucus 0 SEEN 05/22/19 02:15: Urine Creatinine 196.00 05/22/19 02:15: Ur Random Sodium 82 05/22/19 03:46: WBC 16.8 H, RBC 3.12 L, Hgb 9.3 L, Hct 29.2 L, MCV 93.6, MCH 29.8, MCHC 31.8 L, RDW Std Deviation 53.9 H, RDW Coeff of Bernie 15.8 H, Plt Count 221, MPV 9.8, Immature Gran % (Auto) 1.100 H, Neut % (Auto) 95.2 H, Lymph % (Auto) 1.5 L, [place] % (Auto) 2.1, Eos % (Auto) 0.0, Baso % (Auto) 0.1, Absolute Neuts (auto) 16.0 H, Absolute Lymphs (auto) 0.25 L, Nucleated RBC % 0, Differential Comment SCANNED 05/22/19 03:46: Sodium 135 L, Potassium 4.6, Chloride 101, Carbon Dioxide 16.0 L , Anion Gap 18 H, BUN 46 H, Creatinine 2.53 H, Estim Creat Clear Calc 26.06, Est GFR (MDRD) Af Amer 32 L, Est GFR (MDRD) Non-Af 27 L, BUN/Creatinine Ratio 18.2, Glucose 127 H, Calcium 7.7 L, Total Bilirubin 0.70, AST 153 H, ALT 55, Alkaline Phosphatase 80, Total Protein 5.8 L, Albumin 2.1 L, Globulin 3.7, Albumin/Globulin Ratio 0.6 L 05/22/19 03:46: Troponin I 0.091 H 05/22/19 03:46: Total Creatine Kinase 1115 H 05/22/19 06:06: POC Glucose 177 H 05/22/19 11:34: POC Glucose 226 H Current Medications Acetaminophen (Tylenol) 650 mg PO Q6H PRN PRN PRN Reason: Pain Score 1-3/Temp > 100.7 F Last Admin: 05/22/19 12:38 Dose: 650 mg Documented by: Al Hydroxide/Mg Hydroxide (Mylanta Ii) 30 ml PO Q6H PRN PRN PRN Reason: Gastric Burning Albuterol Sulfate (Ventolin Aerosols) 2.5 mg INHALATION Q2H PRN PRN PRN Reason: SOB/Wheezing Albuterol/Ipratropium (Duoneb) 3 ml INHALATION Q4HWA.RT [facility] Last Admin: 05/22/19 10:22 Dose: 3 ml Documented by: Dextrose (D50w Syringe) 0 gm IV X1 PRN; Protocol PRN Reason: Hypoglycemia Glucagon () 1 mg IM .X1 PRN PRN Reason: Hypoglycemia Heparin Sodium (Porcine) (Heparin Na) 5,000 unit SC Q8 [facility] Last Admin: 05/22/19 06:12 Dose: 5,000 unit Documented by: Hydrocortisone Sodium Succinate (Solu-Cortef) 50 mg IV Q6 [facility] Last Admin: 05/22/19 11:41 Dose: 50 mg Documented by: Sodium Chloride () 1,000 mls @ 100 mls/hr IV .Q10H [facility] Stop: 05/22/19 15:39 Last Infusion: 05/22/19 09:51 Dose: 100 mls/hr Documented by: Sodium Chloride () 250 mls @ 15 mls/hr IV .[id number] PRN PRN Reason: Saline Flush Last Infusion: 05/22/19 09:10 Dose: 0 mls/hr Documented by: Piperacillin Sod/Tazobactam (Sod 3.375 gm/ Sodium Chloride) 50 mls @ 12.5 mls/hr IV Q8 [facility] Doxycycline Hyclate 100 mg/ (Dextrose) 260 mls @ 250 mls/hr IV Q12 [facility] Last Infusion: 05/22/19 12:17 Dose: Infused Documented by: Insulin Human Lispro (Humalog Kwikpen (Bkc)) 0 unit SC ACHS [facility]; Protocol Last Admin: 05/22/19 11:40 Dose: 2 u Documented by: Magnesium Hydroxide (Milk Of Magnesia) 30 ml PO DAILY PRN PRN PRN Reason: Constipation Nitroglycerin (Nitrostat) 0.4 mg SUBLINGUAL Q5M PRN PRN Reason: CARDIAC/CHEST PAIN Nutritional Formula (Lactose Free) (Ensure Enlive) 120 ml PO 4X/DAY [facility] Sodium Chloride () 5 - 15 ml IV UD PRN PRN Reason: SALINE FLUSH Throat Lozenges (Cepacol Sore Throat Lozenge) 1 lozenge MUCOUS MEM Q2H PRN PRN PRN Reason: Sore Throat/Cough Medical Necessity - Tobacco Use Smoking Status: Former smoker Tobacco Use: Non-smoker Assessment/Plan All Active Problems Sepsis (Acute) Pneumonia (Acute) CORNELL (acute kidney injury) (Acute) 1. Acute bronchitis - Sepsis ruled out. On doxy/zosyn for empiric therapy for concerns for HCAP. Prior MRSA in lungs. MRSA swab ordered. Resp panel pending. Blood cultures pending. Leukocytosis likely from recent steroid use. No fever. Requested records from recent visit to [facility]. -Gap is elevated at 18, CO2 is decreased at 16. 2. Acute COPD exacerbation -continue Solu-Medrol, aerosols, incentive spirometer, Pap therapy. He denies using home oxygen. 3. Acute rhabdo and CORNELL - likely from laying in bed for several days at home. Improving. Continue IV fluids. CK trending down. 4. Spiculated lung mass-pulmonology following. Will need to discuss with miguelito palmer as he has some underlying confusion, would likely need transcutaneous CT- guided lung biopsy. 5. Chronic adrenal insufficiency - no hydrocortisone in his home meds. On stress dosed hydrocortisone here. Blood pressure was low overnight but is since recovered. Will need to confirm his pharmacy if he is supposed to be on maintenance hydrocortisone. Cortisol level was decreased at 0.60 november. 6. Pressure ulcers present on admission-wound care ordered 7. Acute urinary retention-Flomax started Weber catheter placed 8. Normocytic anemia-check iron, TIBC, sat, folate. 9. Indeterminate troponin-likely false elevation secondary to rhabdo. No chest pain, no EKG changes, sinus arrhythmia on telemetry DVT prophylaxis: Heparin DC planning: Patient will likely need usp, presentation is consistent with failure to thrive, failure to care for himself properly at home.. This patient was seen by Clint Limon PA-C under the supervision of Doctor Ayala. <Dhruv Ayala - Last Filed: 05/22/19 15:20> Subjective: Seen and examined. Talk to the patient and patient's daughter near the bedside. Patient has been in and out of the hospital multiple times; [address] [facility] and recently in [facility]. As per the daughter in [facility] perhaps he had bronchoscopy and mucus was sucked out. He never got better even on the discharge with respect to his breathing and chest congestion. Denies chest pain, fever or chills but as per the daughter he has generalized weakness, loss of appetite and loss of weight. She could not tell me how much weight loss and what time. His weight was 160 pound in April 13 and currently 148 pounds on 05/21/19 therefore lost about 12 pounds in about 5 weeks. - Physical Exam Vitals/I&O's: Vital Signs Temp Pulse Resp BP Pulse Ox 98.4 F 109 H 18 113/64 95 05/22/19 13:30 05/22/19 13:30 05/22/19 13:30 05/22/19 13:30 05/22/19 13:30 Oxygen Flow Rate (L/min) 2 Oxygen Delivery Method Room Air Weight: 148 lb 12.992 oz Body Mass Index (BMI) 21.1 Intake and Output for Last 24 Hours 05/20/19 05/21/19 05/22/19 23:59 23:59 23:59 Intake Total 760 / 760 2278.25 / 2278.25 Output Total 0 / 0 1050 / 1050 Balance 760 / 760 1228.25 / 1228.25 General: Cooperative, Confused, Lethargic HEENT: Atraumatic, PERRLA, EOMI, Normocephalic Neck: Supple, No JVD, Negative Carotid Bruits Lungs: Diminished - Air entry severely diminished in all lung musa., Rhonchi - Expiratory rhonchi. Cardiovascular: Regular rate, Normal S1, Normal S2, No murmurs Abdomen: Bowel Sounds Present, Soft, Non Tender, Non-Distended Extremities: No edema, Capillary Refill Less than 3 Seconds Skin: Ulcer/ Wound - Skin breakdown of her left greater trochanter area. Musculoskeletal: No Tenderness to Palpation of Joints or Extremities, Arthritic Changes, Muscle Wasting Neurological: Deep Tendon Reflexes 2+/4 and Symmetrical, Neuro grossly intact Microbiology Past 72 Hours 05/21/19 22:45 Interface Orders Respiratory Panel (PCR) - Final Laboratory Results 05/21/19 16:30: WBC 16.6 H, RBC 4.10 L, Hgb 12.1 L, Hct 38.2 L, MCV 93.2, MCH 29.5, MCHC 31.7 L, RDW Std Deviation 53.2 H, RDW Coeff of Bernie 15.5 H, Plt Count 265, MPV 10.2, Immature Gran % (Auto) 1.400 H, Neut % (Auto) 84.5 H, Lymph % (Auto) 6.2 L, [place] % (Auto) 7.2, Eos % (Auto) 0.5, Baso % (Auto) 0.2, Absolute Neuts (auto) 14.0 H, Absolute Lymphs (auto) 1.03, Nucleated RBC % 0 05/21/19 16:30: PT 13.6, INR 1.1, APTT 50.7 H 10/20/19 16:30: Sodium 135 L, Potassium 4.0, Chloride 96 L, Carbon Dioxide 22.0, Anion Gap 17 H, BUN 47 H, Creatinine 3.18 H, Estim Creat Clear Calc 20.73, Est GFR (MDRD) Af Amer 25 L, Est GFR (MDRD) Non-Af 21 L, BUN/Creatinine Ratio 14.8, Glucose 65 L, Calcium 9.0, Total Bilirubin 0.80, AST 265 H, ALT 72 H, Alkaline Phosphatase 96, Troponin I 0.324 H, Total Protein 7.0, Albumin 2.6 L, Globulin 4.4 H, Albumin/Globulin Ratio 0.6 L 05/21/19 16:30: Lactic Acid 1.0 05/21/19 16:30: Valproic Acid 4 L 05/21/19 21:22: Total Creatine Kinase 4287 H 05/21/19 21:22: Troponin I 0.165 H 05/21/19 22:17: POC Glucose 126 H 05/22/19 00:40: Troponin I 0.133 H 05/22/19 02:15: Urine Color Yellow, Urine Clarity Clear, Urine pH 6.0, Ur Specific [place] 1.020, Urine Protein 15 H, Urine Glucose (UA) Normal, Urine Ketones 150 H, Urine Occult Blood 150 H, Urine Nitrite Negative, Urine Bilirubin Negative, Urine Urobilinogen Normal, Ur Leukocyte Esterase Negative, Urine RBC 0 SEEN, Urine WBC 0 SEEN, Ur Squamous Epith Cells 0 SEEN, Urine Bacteria 0 SEEN, Urine Mucus 0 SEEN 05/22/19 02:15: Urine Creatinine 196.00 05/22/19 02:15: Ur Random Sodium 82 05/22/19 03:46: WBC 16.8 H, RBC 3.12 L, Hgb 9.3 L, Hct 29.2 L, MCV 93.6, MCH 29.8, MCHC 31.8 L, RDW Std Deviation 53.9 H, RDW Coeff of Bernie 15.8 H, Plt Count 221, MPV 9.8, Immature Gran % (Auto) 1.100 H, Neut % (Auto) 95.2 H, Lymph % (Auto) 1.5 L, [place] % (Auto) 2.1, Eos % (Auto) 0.0, Baso % (Auto) 0.1, Absolute Neuts (auto) 16.0 H, Absolute Lymphs (auto) 0.25 L, Nucleated RBC % 0, Differential Comment SCANNED 05/22/19 03:46: Sodium 135 L, Potassium 4.6, Chloride 101, Carbon Dioxide 16.0 L , Anion Gap 18 H, BUN 46 H, Creatinine 2.53 H, Estim Creat Clear Calc 26.06, Est GFR (MDRD) Af Amer 32 L, Est GFR (MDRD) Non-Af 27 L, BUN/Creatinine Ratio 18.2, Glucose 127 H, Calcium 7.7 L, Total Bilirubin 0.70, AST 153 H, ALT 55, Alkaline Phosphatase 80, Total Protein 5.8 L, Albumin 2.1 L, Globulin 3.7, Albumin/Globulin Ratio 0.6 L 05/22/19 03:46: Troponin I 0.091 H 05/22/19 03:46: Total Creatine Kinase 1115 H 05/22/19 03:46: Iron 31 L, TIBC 235 L, Iron Saturation 13.2 L, Ferritin 1623 H 05/22/19 06:06: POC Glucose 177 H 05/22/19 11:34: POC Glucose 226 H Current Medications Acetaminophen (Tylenol) 650 mg PO Q6H PRN PRN PRN Reason: Pain Score 1-3/Temp > 100.7 F Last Admin: 05/22/19 12:38 Dose: 650 mg Documented by: Al Hydroxide/Mg Hydroxide (Mylanta Ii) 30 ml PO Q6H PRN PRN PRN Reason: Gastric Burning Albuterol Sulfate (Ventolin Aerosols) 2.5 mg INHALATION Q2H PRN PRN PRN Reason: SOB/Wheezing Albuterol/Ipratropium (Duoneb) 3 ml INHALATION Q4HWA.RT [facility] Last Admin: 05/22/19 14:31 Dose: 3 ml Documented by: Dextrose (D50w Syringe) 0 gm IV X1 PRN; Protocol PRN Reason: Hypoglycemia Glucagon () 1 mg IM .X1 PRN PRN Reason: Hypoglycemia Heparin Sodium (Porcine) (Heparin Na) 5,000 unit SC Q8 [facility] Last Admin: 05/22/19 14:32 Dose: 5,000 unit Documented by: Hydrocortisone Sodium Succinate (Solu-Cortef) 50 mg IV Q6 [facility] Last Admin: 05/22/19 11:41 Dose: 50 mg Documented by: Sodium Chloride () 1,000 mls @ 100 mls/hr IV .Q10H [facility] Stop: 05/22/19 15:39 Last Infusion: 05/22/19 09:51 Dose: 100 mls/hr Documented by: Sodium Chloride () 250 mls @ 15 mls/hr IV .[id number] PRN PRN Reason: Saline Flush Last Infusion: 05/22/19 09:10 Dose: 0 mls/hr Documented by: Piperacillin Sod/Tazobactam (Sod 3.375 gm/ Sodium Chloride) 50 mls @ 12.5 m ls/hr IV Q8 [facility] Last Admin: 05/22/19 14:35 Dose: 12.5 mls/hr Documented by: Doxycycline Hyclate 100 mg/ (Dextrose) 260 mls @ 250 mls/hr IV Q12 [facility] Last Infusion: 05/22/19 12:17 Dose: Infused Documented by: Insulin Human Lispro (Humalog Kwikpen (Bkc)) 0 unit SC ACHS [facility]; Protocol Last Admin: 05/22/19 11:40 Dose: 2 u Documented by: Magnesium Hydroxide (Milk Of Magnesia) 30 ml PO DAILY PRN PRN PRN Reason: Constipation Nitroglycerin (Nitrostat) 0.4 mg SUBLINGUAL Q5M PRN PRN Reason: CARDIAC/CHEST PAIN Nutritional Formula (Lactose Free) (Ensure Enlive) 120 ml PO 4X/DAY [facility] Last Admin: 05/22/19 14:34 Dose: 120 ml Documented by: Sodium Chloride () 5 - 15 ml IV UD PRN PRN Reason: SALINE FLUSH Throat Lozenges (Cepacol Sore Throat Lozenge) 1 lozenge MUCOUS MEM Q2H PRN PRN PRN Reason: Sore Throat/Cough Assessment/Plan This patient was seen in conjunction with Clint MUSTAFA. I have independently interviewed and examined the patient and reviewed pertinent history, examination findings, laboratory and plan of management. I have reviewed the note and agree with the documented findings with the few additional points. In brief, patient is 69-year-old gentleman with history of severe COPD as per PFT in 2017 was admitted with shortness of breath, chest congestion and cough. Patient was found on the floor as per the neighbor therefore unwitnessed fall prior to hospitalization. Patient also has dementia. In ED, chest x-ray shows no focal airspace disease. CT chest was done and shows 20 x 8.8 nodule in the right upper lobe anteriorly. Emphysematous changes were noted. Overall, assessment is consistent with COPD exacerbation with acute bronchitis. Blood cultures x2 are pending. Respiratory panel negative. Nasal screen MRSA is pending. Patient has history of MRSA. Federal Judge is been consulted and is not appreciated. He advised CT-guided lung biopsy. We will try to obtain previous pulmonary work-up in [facility] and [facility]. On IV Solu-Medrol, antibiotics, bronchodilator and oxygen. Continue bronchopulmonary hygiene, chest physiotherapy and incentive spirometry. Patient also has acute kidney injury and acute rhabdomyolysis secondary to fall and found on bed. Continue IV fluid. CK is trending down. Mild troponin elevation secondary to acute rhabdomyolysis. Patient does not have chest pain. Decubitus/pressure ulcer on left greater trochanter: Wound care. Other chronic comorbidities as mentioned above. I have discussed my assessment with Clint MUSTAFA and orders have been reviewed. Code Visit Inpatient E&M: 32781 Subs Hosp L3
--- NOTE | 2019-05-22 14:07 | CASEMGMT ---
KAE met with patient. His other daughter was present. KAE explained that therapy is recommending he go somewhere short term for rehab. SW asked if he would want to go to [facility] since he lives right there. He asked if he could go to [facility]. His daughter asked him why he wants to go there and he explained one of his friends went there and they did a great job. KAE told him SW will check to see if they are in network with his insurance. SW checked [employer] website and [facility] is not in network. KAE printed a list of in network facilities and went to talk with patient and his daughter. Patient said he would like to try [facility]. This facility is in network. KAE told him KAE will work on making a referral. KAE called [facility] at [facility] with referral and also faxed information. Plan: [facility] pending patient being medically ready and insurance approval. Marlen WEN
[2019-05-22 14:32] LABS: Ferritin 1623 ng/mL (26-388); Iron 31 ug/dL (65-175); Iron Binding Capacity,Total 235 ug/dL (250-450); PERCENT IRON SATURATION 13.2 % (15.0-55.0)
[2019-05-22] MEDS: traMADol 50 MG Tablet PO (17:15)
--- NOTE | 2019-05-22 18:02 | NURSING ---
okay to share information with daughter Gale Bills, , and son Nathan Seals, . Please call Gale with any pertinent issues because she is the closest.
[2019-05-22 19:26] LABS: Bedside Glucose 296 mg/dL (70-110)
--- NOTE | 2019-05-22 20:18 | EKG12_ITS ---
Test Reason : TACHYCARDIA Blood Pressure : / mmHG Vent. Rate : 160 BPM Atrial Rate : 166 BPM P-R Int : 000 ms QRS Dur : 078 ms QT Int : 304 ms P-R-T Axes : 000 016 189 degrees QTc Int : 496 ms Atrial fibrillation with rapid ventricular response Nonspecific ST and T wave abnormality Abnormal ECG When compared with ECG of 21-MAY-2019 16:36, MANUAL COMPARISON REQUIRED, DATA IS UNCONFIRMED Confirmed by MADDIE RING, LOCO ([id number]), online content editor LEE ASTORGA ([id number]) on 05/26/2019 11:42:25 AM Referred By: MERCEDES Confirmed By:LOCO PERKINS MD
[2019-05-22] MEDS: dilTIAZem 25 MG/5 ML Vial 10 MG IV BOLUS ×2 (20:53→23:07)
[2019-05-22] MEDS: 0.9% Saline Lock 10 ML Syringe IV ×2 (22:35→23:11)
[2019-05-22 22:45] LABS: Bedside Glucose 305 mg/dL (70-110)
[2019-05-23] VITALS (20 sets, daily range): BP systolic 133–160; BP diastolic 77–87; PULSE 86–110; RESP 18–20; TEMP 36.6–37.1; O2SAT 96–100
--- NOTE | 2019-05-23 00:43 | EKG12_ITS ---
Test Reason : Blood Pressure : / mmHG Vent. Rate : 095 BPM Atrial Rate : 095 BPM P-R Int : 130 ms QRS Dur : 076 ms QT Int : 352 ms P-R-T Axes : 072 -05 028 degrees QTc Int : 442 ms Normal sinus rhythm Possible Left atrial enlargement Low voltage QRS Nonspecific T wave abnormality Abnormal ECG When compared with ECG of 22-MAY-2019 20:35, MANUAL COMPARISON REQUIRED, DATA IS UNCONFIRMED Confirmed by MADDIE RING, LOCO ([id number]), production editor LEE ASTORGA ([id number]) on 05/26/2019 11:42:04 AM Referred By: Confirmed By:LOCO PERKINS MD
[2019-05-23 06:14] LABS: Absolute Lymphocyte Count 0.32 X10^3/uL (0.83-4.51); Absolute Neutrophil Count 15.8 X10^3/uL (2.0-7.7); Basophil# 0.01 X10^3/uL; Basophil% 0.1 % (0-1); Hematocrit 26.8 % (40-54); Lymphocyte # 0.32 X10^3/ul (4.0); Lymphocyte % 1.9 % (19-41); Mean Corp Hgb Conc 33.6 g/dL (32-36); Mean Corpuscular Hgb 29.7 pg (27.0-32.0); Mean Corpuscular Volume 88.4 fL (80-94); Mean Platelet Vol. 9.7 fl (6.2-12.0); Monocyte# 0.72 X10^3/uL; Monocyte% 4.2 % (0-10); NRBC Flagged by Analyzer 0 % (0-5); Neutrophil # 15.81 X10^3/uL (2.7-7.7); Neutrophil % 92.9 % (47-70); POSITIVE DIFFERENTIAL YES; Platelet Count 231 K/mm3 (150-450); RBC Distribution Width CV 15.5 % (11.6-14.6); RBC Distribution Width SD 50.6 fl (35.1-43.9); Red Blood Count 3.03 M/mm3 (4.6-6.2)
[2019-05-23] MEDS: 0.9% Saline Lock 10 ML Syringe IV (06:25)
[2019-05-23] MEDS: 0.9% Normal Saline 1,000 ML 100 ML IV ×2 (06:25→19:47)
[2019-05-23 06:31] LABS: Differential Indicated SCAN CRITERIA MET
[2019-05-23] MEDS: Hydrocortisone Sod Succinate 100 MG/2 ML Vial 50 MG IV (06:32)
[2019-05-23] MEDS: Insulin Lispro 100 UNIT/ML INSULN.PEN SC ×4 (06:37→22:10)
[2019-05-23] MEDS: Heparin Injection (Vial) 5,000 UNIT/ML VIAL 5000 UNIT SC ×3 (06:40→22:10)
[2019-05-23 06:43] LABS: Anion Gap 6 (5-15); BUN 37 mg/dL (7-18); BUN/Creat Ratio 19.3 RATIO (10-20); CPK Total, Creatine Kinase 499 U/L (39-308); Calcium,Total 8.6 mg/dL (8.5-10.1); Chloride 105 mmol/L (98-107); Creatinine, Serum 1.92 mg/dL (0.70-1.30); EST Glomerular Filtration Rate 37 mL/min (>60); Est Glom Filt Rate - Afr Amer 45 mL/min (>60); Estimated Creatinine Clearance 34.89 ml/min; Glucose 229 mg/dL (74-106); Potassium 3.5 mmol/L (3.5-5.1); Sodium Level 135 mmol/L (136-145)
[2019-05-23] MEDS: Ipratropium/Albuterol Sulfate 3 ML AMPUL.NEB INHALATION ×3 (06:55→19:50)
[2019-05-23 06:56] LABS: Bedside Glucose 210 mg/dL (70-110)
--- NOTE | 2019-05-23 07:16 | PN_ITS ---
Patient Problems: Active and Suspected Problems Atrial fibrillation (Acute) Abnormal cardiac enzyme level (Acute) Rhabdomyolysis (Acute) Subjective: The patient was seen and examined at the bedside this morning. Events from the last 24 hours have been reviewed. The patient is currently afebrile, hemodynamically stable and maintaining appropriate oxygen saturations on 2 L/min via nasal cannula. Records obtained from the [facility] indicated that a CT chest without contrast was performed on May 10, 2019. The report indicated that the patient had a right upper lobe nodule, which appeared unchanged from 2016 and was felt to be benign. There was note of a 10 x 5 mm irregularly marginated nodular opacity within the left upper lobe. The report did not indicate the presence of any other significant abnormalities. Objective: The patient's most recent lab work, culture data and imaging studies have all been personally reviewed. Respiratory viral panel was negative. - Physical Exam Vitals/I&O's: Vital Signs Temp Pulse Resp BP Pulse Ox 97.8 F 91 18 154/87 H 100 05/23/19 06:40 05/23/19 06:40 05/23/19 06:40 05/23/19 06:40 05/23/19 06:40 Oxygen Flow Rate (L/min) 2 Oxygen Delivery Method Nasal Cannula Weight: 154 lb 1.65 oz Body Mass Index (BMI) 21.1 Intake and Output for Last 24 Hours 05/21/19 05/22/19 05/23/19 23:59 23:59 23:59 Intake Total 760 / 760 3406.58 / 3526.58 1230 / 1230 Output Total 0 / 0 1250 / 1825 775 / 775 Balance 760 / 760 2156.58 / 1701.58 455 / 455 General: Alert, Cooperative, No apparent distress HEENT: Atraumatic, PERRLA, Normocephalic Oral: Dry Mucosa Neck: Supple, No Nodes, Trachea Midline Lungs: No rhonchi, No wheeze, No rales, Diminished Cardiovascular: Regular rate, Regular Rhythm, Normal S1, Normal S2, No murmurs Abdomen: Bowel Sounds Present, Soft, Non Tender Extremities: No clubbing, No cyanosis, No edema Skin: - - No change from previous Musculoskeletal: No Tenderness to Palpation of Joints or Extremities Lymphatic: No Cervical, Supraclavicular, or Inguinal Adenopathy Neurological: Neuro grossly intact Psych/Mental Status: Normal Affect, Appropriate Microbiology Past 72 Hours 05/21/19 22:45 Interface Orders Respiratory Panel (PCR) - Final Laboratory Results 05/22/19 03:46: Iron 31 L, TIBC 235 L, Iron Saturation 13.2 L, Ferritin 1623 H 05/22/19 11:34: POC Glucose 226 H 05/22/19 17:09: POC Glucose 296 H 05/22/19 21:16: POC Glucose 305 H 05/23/19 06:02: WBC 17.0 H, RBC 3.03 L, Hgb 9.0 L, Hct 26.8 L, MCV 88.4 D, MCH 29.7, MCHC 33.6, RDW Std Deviation 50.6 H, RDW Coeff of Bernie 15.5 H, Plt Count 231, MPV 9.7, Immature Gran % (Auto) 0.900, Neut % (Auto) 92.9 H, Lymph % (Auto) 1.9 L, [place] % (Auto) 4.2, Eos % (Auto) 0.0, Baso % (Auto) 0.1, Absolute Neuts (auto) 15.8 H, Absolute Lymphs (auto) 0.32 L, Nucleated RBC % 0 05/23/19 06:02: Sodium 135 L, Potassium 3.5, Chloride 105, Carbon Dioxide 24.0, Anion Gap 6, BUN 37 H, Creatinine 1.92 H, Estim Creat Clear Calc 34.89, Est GFR (MDRD) Af Amer 45 L, Est GFR (MDRD) Non-Af 37 L, BUN/Creatinine Ratio 19.3, Glucose 229 H, Calcium 8.6, Total Creatine Kinase 499 H 05/23/19 06:36: POC Glucose 210 H Labs (Last 48 Hours) 05/21/19 05/21/19 05/21/19 16:30 16:30 16:30 WBC 16.6 H RBC 4.10 L Hgb 12.1 L Hct 38.2 L MCV 93.2 MCH 29.5 MCHC 31.7 L RDW Std Deviation 53.2 H RDW Coeff of Bernie 15.5 H Plt Count 265 MPV 10.2 Immature Gran % (Auto) 1.400 H Neut % (Auto) 84.5 H Lymph % (Auto) 6.2 L [place] % (Auto) 7.2 Eos % (Auto) 0.5 Baso % (Auto) 0.2 Absolute Neuts (auto) 14.0 H Absolute Lymphs (auto) 1.03 Nucleated RBC % 0 Differential Comment PT 13.6 INR 1.1 APTT 50.7 H Sodium 135 L Potassium 4.0 Chloride 96 L Carbon Dioxide 22.0 Anion Gap 17 H BUN 47 H Creatinine 3.18 H Estim Creat Clear Calc 20.73 Est GFR (MDRD) Af Amer 25 L Est GFR (MDRD) Non-Af 21 L BUN/Creatinine Ratio 14.8 Glucose 65 L Lactic Acid Calcium 9.0 Iron TIBC Iron Saturation Ferritin Total Bilirubin 0.80 AST 265 H ALT 72 H Alkaline Phosphatase 96 Total Creatine Kinase Troponin I 0.324 H Total Protein 7.0 Albumin 2.6 L Globulin 4.4 H Albumin/Globulin Ratio 0.6 L Urine Color Urine Clarity Urine pH Ur Specific [place] Urine Protein Urine Glucose (UA) Urine Ketones Urine Occult Blood Urine Nitrite Urine Bilirubin Urine Urobilinogen Ur Leukocyte Esterase Urine RBC Urine WBC Ur Squamous Epith Cells Urine Bacteria Urine Mucus Ur Random Sodium Urine Creatinine Valproic Acid POC Glucose 05/21/19 05/21/19 05/21/19 16:30 16:30 21:22 WBC RBC Hgb Hct MCV MCH MCHC RDW Std Deviation RDW Coeff of Bernie Plt Count MPV Immature Gran % (Auto) Neut % (Auto) Lymph % (Auto) [place] % (Auto) Eos % (Auto) Baso % (Auto) Absolute Neuts (auto) Absolute Lymphs (auto) Nucleated RBC % Differential Comment PT INR APTT Sodium Potassium Chloride Carbon Dioxide Anion Gap BUN Creatinine Estim Creat Clear Calc Est GFR (MDRD) Af Amer Est GFR (MDRD) Non-Af BUN/Creatinine Ratio Glucose Lactic Acid 1.0 Calcium Iron TIBC Iron Saturation Ferritin Total Bilirubin AST ALT Alkaline Phosphatase Total Creatine Kinase 4287 H Troponin I Total Protein Albumin Globulin Albumin/Globulin Ratio Urine Color Urine Clarity Urine pH Ur Specific [place] Urine Protein Urine Glucose (UA) Urine Ketones Urine Occult Blood Urine Nitrite Urine Bilirubin Urine Urobilinogen Ur Leukocyte Esterase Urine RBC Urine WBC Ur Squamous Epith Cells Urine Bacteria Urine Mucus Ur Random Sodium Urine Creatinine Valproic Acid 4 L POC Glucose 05/21/19 05/21/19 05/22/19 21:22 22:17 00:40 WBC RBC Hgb Hct MCV MCH MCHC RDW Std Deviation RDW Coeff of Bernie Plt Count MPV Immature Gran % (Auto) Neut % (Auto) Lymph % (Auto) [place] % (Auto) Eos % (Auto) Baso % (Auto) Absolute Neuts (auto) Absolute Lymphs (auto) Nucleated RBC % Differential Comment PT INR APTT Sodium Potassium Chloride Carbon Dioxide Anion Gap BUN Creatinine Estim Creat Clear Calc Est GFR (MDRD) Af Amer Est GFR (MDRD) Non-Af BUN/Creatinine Ratio Glucose Lactic Acid Calcium Iron TIBC Iron Saturation Ferritin Total Bilirubin AST ALT Alkaline Phosphatase Total Creatine Kinase Troponin I 0.165 H 0.133 H Total Protein Albumin Globulin Albumin/Globulin Ratio Urine Color Urine Clarity Urine pH Ur Specific [place] Urine Protein Urine Glucose (UA) Urine Ketones Urine Occult Blood Urine Nitrite Urine Bilirubin Urine Urobilinogen Ur Leukocyte Esterase Urine RBC Urine WBC Ur Squamous Epith Cells Urine Bacteria Urine Mucus Ur Random Sodium Urine Creatinine Valproic Acid POC Glucose 126 H 05/22/19 05/22/19 05/22/19 02:15 02:15 02:15 WBC RBC Hgb Hct MCV MCH MCHC RDW Std Deviation RDW Coeff of Bernie Plt Count MPV Immature Gran % (Auto) Neut % (Auto) Lymph % (Auto) [place] % (Auto) Eos % (Auto) Baso % (Auto) Absolute Neuts (auto) Absolute Lymphs (auto) Nucleated RBC % Differential Comment PT INR APTT Sodium Potassium Chloride Carbon Dioxide Anion Gap BUN Creatinine Estim Creat Clear Calc Est GFR (MDRD) Af Amer Est GFR (MDRD) Non-Af BUN/Creatinine Ratio Glucose Lactic Acid Calcium Iron TIBC Iron Saturation Ferritin Total Bilirubin AST ALT Alkaline Phosphatase Total Creatine Kinase Troponin I Total Protein Albumin Globulin Albumin/Globulin Ratio Urine Color Yellow Urine Clarity Clear Urine pH 6.0 Ur Specific [place] 1.020 Urine Protein 15 H Urine Glucose (UA) Normal Urine Ketones 150 H Urine Occult Blood 150 H Urine Nitrite Negative Urine Bilirubin Negative Urine Urobilinogen Normal Ur Leukocyte Esterase Negative Urine RBC 0 SEEN Urine WBC 0 SEEN Ur Squamous Epith Cells 0 SEEN Urine Bacteria 0 SEEN Urine Mucus 0 SEEN Ur Random Sodium 82 Urine Creatinine 196.00 Valproic Acid POC Glucose 05/22/19 05/22/19 05/22/19 03:46 03:46 03:46 WBC 16.8 H RBC 3.12 L Hgb 9.3 L Hct 29.2 L MCV 93.6 MCH 29.8 MCHC 31.8 L RDW Std Deviation 53.9 H RDW Coeff of Bernie 15.8 H Plt Count 221 MPV 9.8 Immature Gran % (Auto) 1.100 H Neut % (Auto) 95.2 H Lymph % (Auto) 1.5 L [place] % (Auto) 2.1 Eos % (Auto) 0.0 Baso % (Auto) 0.1 Absolute Neuts (auto) 16.0 H Absolute Lymphs (auto) 0.25 L Nucleated RBC % 0 Differential Comment SCANNED PT INR APTT Sodium 135 L Potassium 4.6 Chloride 101 Carbon Dioxide 16.0 L Anion Gap 18 H BUN 46 H Creatinine 2.53 H Estim Creat Clear Calc 26.06 Est GFR (MDRD) Af Amer 32 L Est GFR (MDRD) Non-Af 27 L BUN/Creatinine Ratio 18.2 Glucose 127 H Lactic Acid Calcium 7.7 L Iron TIBC Iron Saturation Ferritin Total Bilirubin 0.70 AST 153 H ALT 55 Alkaline Phosphatase 80 Total Creatine Kinase Troponin I 0.091 H Total Protein 5.8 L Albumin 2.1 L Globulin 3.7 Albumin/Globulin Ratio 0.6 L Urine Color Urine Clarity Urine pH Ur Specific [place] Urine Protein Urine Glucose (UA) Urine Ketones Urine Occult Blood Urine Nitrite Urine Bilirubin Urine Urobilinogen Ur Leukocyte Esterase Urine RBC Urine WBC Ur Squamous Epith Cells Urine Bacteria Urine Mucus Ur Random Sodium Urine Creatinine Valproic Acid POC Glucose 05/22/19 05/22/19 05/22/19 03:46 03:46 06:06 WBC RBC Hgb Hct MCV MCH MCHC RDW Std Deviation RDW Coeff of Bernie Plt Count MPV Immature Gran % (Auto) Neut % (Auto) Lymph % (Auto) [place] % (Auto) Eos % (Auto) Baso % (Auto) Absolute Neuts (auto) Absolute Lymphs (auto) Nucleated RBC % Differential Comment PT INR APTT Sodium Potassium Chloride Carbon Dioxide Anion Gap BUN Creatinine Estim Creat Clear Calc Est GFR (MDRD) Af Amer Est GFR (MDRD) Non-Af BUN/Creatinine Ratio Glucose Lactic Acid Calcium Iron 31 L TIBC 235 L Iron Saturation 13.2 L Ferritin 1623 H Total Bilirubin AST ALT Alkaline Phosphatase Total Creatine Kinase 1115 H Troponin I Total Protein Albumin Globulin Albumin/Globulin Ratio Urine Color Urine Clarity Urine pH Ur Specific [place] Urine Protein Urine Glucose (UA) Urine Ketones Urine Occult Blood Urine Nitrite Urine Bilirubin Urine Urobilinogen Ur Leukocyte Esterase Urine RBC Urine WBC Ur Squamous Epith Cells Urine Bacteria Urine Mucus Ur Random Sodium Urine Creatinine Valproic Acid POC Glucose 177 H 05/22/19 05/22/19 05/22/19 11:34 17:09 21:16 WBC RBC Hgb Hct MCV MCH MCHC RDW Std Deviation RDW Coeff of Bernie Plt Count MPV Immature Gran % (Auto) Neut % (Auto) Lymph % (Auto) [place] % (Auto) Eos % (Auto) Baso % (Auto) Absolute Neuts (auto) Absolute Lymphs (auto) Nucleated RBC % Differential Comment PT INR APTT Sodium Potassium Chloride Carbon Dioxide Anion Gap BUN Creatinine Estim Creat Clear Calc Est GFR (MDRD) Af Amer Est GFR (MDRD) Non-Af BUN/Creatinine Ratio Glucose Lactic Acid Calcium Iron TIBC Iron Saturation Ferritin Total Bilirubin AST ALT Alkaline Phosphatase Total Creatine Kinase Troponin I Total Protein Albumin Globulin Albumin/Globulin Ratio Urine Color Urine Clarity Urine pH Ur Specific [place] Urine Protein Urine Glucose (UA) Urine Ketones Urine Occult Blood Urine Nitrite Urine Bilirubin Urine Urobilinogen Ur Leukocyte Esterase Urine RBC Urine WBC Ur Squamous Epith Cells Urine Bacteria Urine Mucus Ur Random Sodium Urine Creatinine Valproic Acid POC Glucose 226 H 296 H 305 H 05/23/19 05/23/19 05/23/19 06:02 06:02 06:36 WBC 17.0 H RBC 3.03 L Hgb 9.0 L Hct 26.8 L MCV 88.4 D MCH 29.7 MCHC 33.6 RDW Std Deviation 50.6 H RDW Coeff of Bernie 15.5 H Plt Count 231 MPV 9.7 Immature Gran % (Auto) 0.900 Neut % (Auto) 92.9 H Lymph % (Auto) 1.9 L [place] % (Auto) 4.2 Eos % (Auto) 0.0 Baso % (Auto) 0.1 Absolute Neuts (auto) 15.8 H Absolute Lymphs (auto) 0.32 L Nucleated RBC % 0 Differential Comment PT INR APTT Sodium 135 L Potassium 3.5 Chloride 105 Carbon Dioxide 24.0 Anion Gap 6 BUN 37 H Creatinine 1.92 H Estim Creat Clear Calc 34.89 Est GFR (MDRD) Af Amer 45 L Est GFR (MDRD) Non-Af 37 L BUN/Creatinine Ratio 19.3 Glucose 229 H Lactic Acid Calcium 8.6 Iron TIBC Iron Saturation Ferritin Total Bilirubin AST ALT Alkaline Phosphatase Total Creatine Kinase 499 H Troponin I Total Protein Albumin Globulin Albumin/Globulin Ratio Urine Color Urine Clarity Urine pH Ur Specific [place] Urine Protein Urine Glucose (UA) Urine Ketones Urine Occult Blood Urine Nitrite Urine Bilirubin Urine Urobilinogen Ur Leukocyte Esterase Urine RBC Urine WBC Ur Squamous Epith Cells Urine Bacteria Urine Mucus Ur Random Sodium Urine Creatinine Valproic Acid POC Glucose 210 H Microbiology 05/21/19 22:45 Interface Orders Respiratory Panel (PCR) - Final Clinical Impression(s) from Imaging Studies Brain CT 05/21/19 16:28 IMPRESSION: 1. No evidence of acute intracranial bleed, mass or ischemia. Electronically Signed: Nicola Correia DO at 17:11 EDT , Service support , Chest X-Ray 05/21/19 16:29 IMPRESSION: Chronic COPD related changes with no evidence of focal airspace disease. Underlying COPD exacerbation is not excluded. Electronically Signed: Nicola Correia DO at 17:27 EDT , Service support , Chest CT 05/22/19 08:59 IMPRESSION: New 20.6 mm x 8.8 mm spiculated nodule in the right upper lobe as described. A neoplastic process should be ruled out. Mild degree of emphysematous changes and scarring at the lung bases. Electronically Signed: Blaze Mcgarry, at 10:37 EDT , Service support , Current Medications Acetaminophen (Tylenol) 650 mg PO Q6H PRN PRN PRN Reason: Pain Score 1-3/Temp > 100.7 F Last Admin: 05/22/19 12:38 Dose: 650 mg Documented by: Al Hydroxide/Mg Hydroxide (Mylanta Ii) 30 ml PO Q6H PRN PRN PRN Reason: Gastric Burning Albuterol Sulfate (Ventolin Aerosols) 2.5 mg INHALATION Q2H PRN PRN PRN Reason: SOB/Wheezing Albuterol/Ipratropium (Duoneb) 3 ml INHALATION Q4HWA.RT COUNT INCLUDES THE [facility] Last Admin: 05/23/19 06:55 Dose: 3 ml Documented by: Dextrose (D50w Syringe) 0 gm IV X1 PRN; Protocol PRN Reason: Hypoglycemia Glucagon () 1 mg IM .X1 PRN PRN Reason: Hypoglycemia Heparin Sodium (Porcine) (Heparin Na) 5,000 unit SC Q8 COUNT INCLUDES THE [facility] Last Admin: 05/23/19 06:40 Dose: 5,000 unit Documented by: Hydrocortisone Sodium Succinate (Solu-Cortef) 50 mg IV Q6 COUNT INCLUDES THE [facility] Last Admin: 05/23/19 06:32 Dose: 50 mg Documented by: Sodium Chloride () 250 mls @ 15 mls/hr IV .[id number] PRN PRN Reason: Saline Flush Last Infusion: 05/22/19 09:10 Dose: 0 mls/hr Documented by: Piperacillin Sod/Tazobactam (Sod 3.375 gm/ Sodium Chloride) 50 mls @ 12.5 mls/hr IV Q8 COUNT INCLUDES THE [facility] Last Admin: 05/23/19 06:29 Dose: 12.5 mls/hr Documented by: Doxycycline Hyclate 100 mg/ (Dextrose) 260 mls @ 250 mls/hr IV Q12 KALIN Last Infusion: 05/22/19 22:30 Dose: Infused Documented by: Sodium Chloride () 1,000 mls @ 100 mls/hr IV .Q10H COUNT INCLUDES THE [facility] Last Admin: 05/23/19 06:25 Dose: 100 mls/hr Documented by: Insulin Human Lispro (Humalog Kwikpen (Bkc)) 0 unit SC ACHS COUNT INCLUDES THE [facility]; Protocol Last Admin: 05/23/19 06:37 Dose: 1 u Documented by: Magnesium Hydroxide (Milk Of Magnesia) 30 ml PO DAILY PRN PRN PRN Reason: Constipation Nitroglycerin (Nitrostat) 0.4 mg SUBLINGUAL Q5M PRN PRN Reason: CARDIAC/CHEST PAIN Nutritional Formula (Lactose Free) (Ensure Enlive) 120 ml PO 4X/DAY COUNT INCLUDES THE [facility] Last Admin: 05/22/19 21:09 Dose: 120 ml Documented by: Sodium Chloride () 5 - 15 ml IV UD PRN PRN Reason: SALINE FLUSH Last Admin: 05/23/19 06:25 Dose: 10 ml Documented by: Throat Lozenges (Cepacol Sore Throat Lozenge) 1 lozenge MUCOUS MEM Q2H PRN PRN PRN Reason: Sore Throat/Cough Tramadol HCl (Ultram) 50 mg PO Q12H PRN PRN PRN Reason: Pain Score 6-10/10 Last Admin: 05/22/19 17:15 Dose: 50 mg Documented by: Medical Necessity - Tobacco Use Smoking Status: Former smoker Tobacco Use: Non-smoker Assessment/Plan All Active Problems Atrial fibrillation (Acute) Abnormal cardiac enzyme level (Acute) Rhabdomyolysis (Acute) Sepsis (Acute) Pneumonia (Acute) CORNELL (acute kidney injury) (Acute) RECOMMENDATIONS: 1. Continue bronchodilators and antibiotics. For simplicity sake, the patient's doxycycline and Zosyn can likely be discontinued and transitioned to Levaquin. 2. Transition from stress dose steroids to prednisone 40 mg daily. 3. Wean supplemental oxygen to maintain saturations at or above 90%. 4. Encourage incentive spirometer use and mobilize patient as tolerated. 5. At discharge, the patient should be sent home on a triple therapy inhaler regimen. He was apparently receiving both Advair and Spiriva previously. 6. Outpatient pulmonary follow-up within 2 weeks of discharge is warranted. IMPRESSIONS: 1. Pulmonary nodule The patient does have evidence of a right upper lobe lung nodule, which was not previously noted on CT chest in 2017. The patient does have a prior extensive smoking history and therefore this lesion would be of concern. Nevertheless, a report from the patient's CT chest through the [facility] dated May 10 indicated that there was no such parenchymal abnormality. I do feel that it would be highly unlikely that the patient developed a large lung nodule of clinical concern in the time that has elapsed since his last chest imaging study. I do have to wonder if this area could also represent something like rounded atelectasis or an AV malformation. I do think that it is likely reasonable to hold off on a percutaneous needle biopsy at this particular juncture. I do recommend that the patient follow-up in the pulmonary medicine clinic, at which time, repeat chest imaging can be completed in 6 to 8 weeks. If the lesion is still noted to be present at that time, percutaneous needle biopsy can be arranged. 2. Acute hypoxemic respiratory insufficiency, likely secondary to COPD with exacerbation Potentially related to viral etiology versus under treatment of baseline COPD due to possible compliance issues. The patient may also have underlying tracheobronchitis. For now, agree with continuing antibiotics. However, given the lack of infiltrate noted on CT chest, the patient can likely be transitioned to Levaquin as monotherapy to complete a 7-day treatment course. His stress dose steroids have been discontinued and he has been placed on prednisone 40 mg daily. He can be treated with this for a 5-day burst. Wean supplemental oxygen to maintain saturations at or above 90%. Encourage incentive spirometer use and mobilize patient as tolerated. 3. Acute on chronic kidney disease Likely prerenal in etiology. Improved with supplemental IV fluid hydration. Continue to monitor urine output. No indication for renal replacement therapy at this time. 4. Poor historian/hypertension/GERD/depression/hypothyroidism Complicates care, management, recovery and prognosis. Continue home medications as indicated. This note was generated with [employer] dictation software. It may contain incorrect words, spelling, and punctuation that were not noted in checking the note before signing. Code Visit Inpatient E&M: 98160 Subs Hosp L2
--- NOTE | 2019-05-23 08:16 | CT_ITS ---
STUDY: CT BRAIN WITHOUT CONTRAST REASON FOR EXAM: Male, 69 years old. Increased confusion. Sepsis. RADIATION DOSAGE (If Supplied By Facility): CTDIvol = ( 44.99 ) mGy, DLP = ( 779.24 ) mGycm TECHNIQUE: Transaxial CT imaging of the brain was performed without administration of intravenous contrast material. Individualized dose optimization techniques were used for this CT. COMPARISON: Comparison is made with prior study dated May 21, 2019. FINDINGS: Normal soft tissue structures. Normal calvarium. There is mild cerebral atrophy with widening of the extra-axial spaces and ventricular dilatation. Normal white matter tracts of the cerebral hemispheres. Normal basal ganglia and thalami. Normal brainstem. Normal cerebellum. There is no intracranial hemorrhage. There are no findings of an acute ischemic infarction. Atherosclerotic calcification of the cavernous portions of the internal carotid arteries bilaterally. Normal visualized paranasal sinuses. CT/Brain/Head without Contrast IMPRESSION: Chronic involutional changes of the brain. Electronically Signed: Blaze Mcgarry, at 9:30 EDT , Service support ,
--- NOTE | 2019-05-23 10:15 | NURSING ---
wound photo: left hip
[2019-05-23 10:36] LABS: Bedside Glucose 255 mg/dL (70-110)
[2019-05-23] MEDS: Sertraline 50 MG Tablet PO (11:39)
[2019-05-23] MEDS: Metoprolol Tartrate 25 MG Tablet PO (11:39)
[2019-05-23] MEDS: Pantoprazole Sodium 40 MG Tablet PO (11:39)
[2019-05-23] MEDS: Sucralfate 1 GM Tablet PO ×3 (11:45→22:10)
[2019-05-23] MEDS: predniSONE 20 MG Tablet 40 MG PO (11:57)
[2019-05-23] MEDS: Albuterol 2.5 MG/3 ML VIAL.NEB. INHALATION (12:26)
--- NOTE | 2019-05-23 12:49 | PCM.PROGNOTE ---
<Clint Limon - Last Filed: 05/23/19 12:49> Subjective: More alert and seemingly less confused today. SOB is improving. No fever/chills. Cough is nonproductive. No fever/chills. No CP. Pt now saying he thinks his bx was benign, however we still have not receiving the pathology from [facility]. He complains primarily of not being able to sleep at all. He also complains that his stomach ulcer is giving him burning and that he needs to be put back on carafate. - Physical Exam Vitals/I&O's: Vital Signs Temp Pulse Resp BP Pulse Ox 97.8 F 99 18 154/82 H 96 05/23/19 12:03 05/23/19 12:31 05/23/19 12:03 05/23/19 12:03 05/23/19 12:03 Oxygen Flow Rate (L/min) 4 Oxygen Delivery Method Nasal Cannula Weight: 154 lb 1.65 oz Body Mass Index (BMI) 21.1 Intake and Output for Last 24 Hours 05/21/19 05/22/19 05/23/19 23:59 23:59 23:59 Intake Total 760 / 760 3406.58 / 3526.58 1580 / 1580 Output Total 0 / 0 1250 / 1825 775 / 775 Balance 760 / 760 2156.58 / 1701.58 805 / 805 General: Alert, Oriented x3, Cooperative HEENT: Atraumatic, PERRLA, EOMI, Normocephalic Neck: Supple, No JVD, Negative Carotid Bruits Lungs: Clear to auscultation, Diminished Cardiovascular: Regular rate, No murmurs Abdomen: Bowel Sounds Present, Soft, Non Tender Extremities: No edema, Capillary Refill Less than 3 Seconds Skin: No rashes, No breakdown Musculoskeletal: No Tenderness to Palpation of Joints or Extremities Neurological: Cranial nerves II-XII grossly intact Psych/Mental Status: Normal Affect, Appropriate, Alert and oriented to time, place, person, mood and affect Microbiology Past 72 Hours 05/22/19 02:15 Urine, Clean Catch Urine Culture - Preliminary Culture exhibits no growth. 05/21/19 22:45 Interface Orders Respiratory Panel (PCR) - Final Laboratory Results 05/22/19 03:46: Iron 31 L, TIBC 235 L, Iron Saturation 13.2 L, Ferritin 1623 H 05/22/19 17:09: POC Glucose 296 H 05/22/19 21:16: POC Glucose 305 H 05/23/19 06:02: WBC 17.0 H, RBC 3.03 L, Hgb 9.0 L, Hct 26.8 L, MCV 88.4 D, MCH 29.7, MCHC 33.6, RDW Std Deviation 50.6 H, RDW Coeff of Bernie 15.5 H, Plt Count 231, MPV 9.7, Immature Gran % (Auto) 0.900, Neut % (Auto) 92.9 H, Lymph % (Auto) 1.9 L, Ford % (Auto) 4.2, Eos % (Auto) 0.0, Baso % (Auto) 0.1, Absolute Neuts (auto) 15.8 H, Absolute Lymphs (auto) 0.32 L, Nucleated RBC % 0 05/23/19 06:02: Sodium 135 L, Potassium 3.5, Chloride 105, Carbon Dioxide 24.0, Anion Gap 6, BUN 37 H, Creatinine 1.92 H, Estim Creat Clear Calc 34.89, Est GFR (MDRD) Af Amer 45 L, Est GFR (MDRD) Non-Af 37 L, BUN/Creatinine Ratio 19.3, Glucose 229 H, Calcium 8.6, Total Creatine Kinase 499 H 05/23/19 06:36: POC Glucose 210 H 05/23/19 10:32: POC Glucose 255 H Current Medications Acetaminophen (Tylenol) 650 mg PO Q6H PRN PRN PRN Reason: Pain Score 1-3/Temp > 100.7 F Last Admin: 05/22/19 12:38 Dose: 650 mg Documented by: Al Hydroxide/Mg Hydroxide (Mylanta Ii) 30 ml PO Q6H PRN PRN PRN Reason: Gastric Burning Albuterol Sulfate (Ventolin Aerosols) 2.5 mg INHALATION Q2H PRN PRN PRN Reason: SOB/Wheezing Last Admin: 05/23/19 12:26 Dose: 2.5 mg Documented by: Albuterol/Ipratropium (Duoneb) 3 ml INHALATION Q4HWA.RT KALIN Last Admin: 05/23/19 10:20 Dose: Not Given Documented by: Dextrose (D50w Syringe) 0 gm IV X1 PRN; Protocol PRN Reason: Hypoglycemia Glucagon () 1 mg IM .X1 PRN PRN Reason: Hypoglycemia Heparin Sodium (Porcine) (Heparin Na) 5,000 unit SC Q8 [facility] Last Admin: 05/23/19 06:40 Dose: 5,000 unit Documented by: Sodium Chloride () 250 mls @ 15 mls/hr IV .[id number] PRN PRN Reason: Saline Flush Last Infusion: 05/22/19 09:10 Dose: 0 mls/hr Documented by: Piperacillin Sod/Tazobactam (Sod 3.375 gm/ Sodium Chloride) 50 mls @ 12.5 mls/hr IV Q8 [facility] Last Infusion: 05/23/19 12:14 Dose: Infused Documented by: Doxycycline Hyclate 100 mg/ (Dextrose) 260 mls @ 250 mls/hr IV Q12 [facility] Last Admin: 05/23/19 12:08 Dose: 250 mls/hr Documented by: Sodium Chloride () 1,000 mls @ 100 mls/hr IV .Q10H [facility] Last Admin: 05/23/19 06:25 Dose: 100 mls/hr Documented by: Insulin Human Lispro (Humalog Kwikpen (Bkc)) 0 unit SC ACHS [facility]; Protocol Last Admin: 05/23/19 11:41 Dose: 2 u Documented by: Magnesium Hydroxide (Milk Of Magnesia) 30 ml PO DAILY PRN PRN PRN Reason: Constipation Melatonin (Melatonin) 3 mg PO QHS [facility] Metoprolol Tartrate (Lopressor (Beta Perry)) 25 mg PO BID [facility] Last Admin: 05/23/19 11:39 Dose: 25 mg Documented by: Nitroglycerin (Nitrostat) 0.4 mg SUBLINGUAL Q5M PRN PRN Reason: CARDIAC/CHEST PAIN Nutritional Formula (Lactose Free) (Ensure Enlive) 120 ml PO 4X/DAY [facility] Last Admin: 05/23/19 11:39 Dose: 120 ml Documented by: Pantoprazole Sodium (Protonix) 40 mg PO DAILY [facility] Last Admin: 05/23/19 11:39 Dose: 40 mg Documented by: Polysaccharide Iron Complex (Ferrex 150) 150 mg PO DAILYCM [facility] Prednisone () 40 mg PO DAILY@0800 [facility] Last Admin: 05/23/19 11:57 Dose: 40 mg Documented by: Sertraline HCl (Zoloft) 50 mg PO DAILY [facility] Last Admin: 05/23/19 11:39 Dose: 50 mg Documented by: Sodium Chloride () 5 - 15 ml IV UD PRN PRN Reason: SALINE FLUSH Last Admin: 05/23/19 06:25 Dose: 10 ml Documented by: Sucralfate (Carafate) 1 gm PO 1HR_ACHS [facility] Last Admin: 05/23/19 11:45 Dose: 1 gm Documented by: Throat Lozenges (Cepacol Sore Throat Lozenge) 1 lozenge MUCOUS MEM Q2H PRN PRN PRN Reason: Sore Throat/Cough Tramadol HCl (Ultram) 50 mg PO Q12H PRN PRN PRN Reason: Pain Score 6-10/10 Last Admin: 05/22/19 17:15 Dose: 50 mg Documented by: Trazodone HCl (Desyrel) 50 mg PO QHS [facility] Medical Necessity - Tobacco Use Smoking Status: Former smoker Tobacco Use: Non-smoker Assessment/Plan All Active Problems Sepsis (Acute) Pneumonia (Acute) CORNELL (acute kidney injury) (Acute) 1. Acute bronchitis - On doxy/zosyn for empiric therapy for concerns for HCAP. Prior MRSA in lungs. MRSA swab still pending. Resp panel negative. Blood cultures pending. Leukocytosis likely from recent steroid use. No fever. Requested records from recent visit to [facility]. -Gap and CO2 have normalized. 2. Acute toxic metabolic encephalopathy - improving. I suspect much of his confusion was due to polypharmacy as he was on xanax, ativan, trazodone, meletonin, ultram, zoloft. Also metabolic due to CORNELL, rhabdo, bronchitis, hypotension, and COPD exacerbation. Serial CT brains were performed as there was a report of associated Left arm weakness. These were both negative. He cannot have an MRI due to severe claustrophobia. 3. Acute COPD exacerbation -continue prednisone taper, aerosols, incentive spirometer, Pap therapy. He denies using home oxygen. 4. Acute rhabdo and CORNELL - likely from laying in bed for several days at home. Still improving. Continue IV fluids. CK trending down. 5. Spiculated lung mass-pulmonology following. Bronchoscopy and biopsy performed at [facility] - awaiting results to be sent. 6. Chronic adrenal insufficiency - no hydrocortisone in his home meds. hydrocortisone DCd. Referral to endocrinology at [place] is warranted. Cortisol level was decreased at 0.60 november of 2018. 7. Afib on the heart monitor. Resume metoprolol. May need OAC however risky with anemia and hx PUD, debility. Check Echo. Check hemoccult. CHeck TSH, mag 8. HTN - now pulse and BP trending up, initially had hypotension but this is now recovered, I suspect this is also due to polypharmacy, will cautiously add back in home meds. 9. Normocytic anemia-with iron deficiency. PO iron started. Check hemoccult. Hx PUD. Denies black stools. TSH pending. 10. Indeterminate troponin-likely false elevation secondary to rhabdo. No chest pain, no EKG changes, sinus arrhythmia on telemetry 11. GERD/PUD - restart Carafate and PPI. May need repeat EGD as o/p. No black stools reported. Check Hemoccult. 12. Acute urinary retention-Flomax started. Weber catheter in place. Voiding trial prior to DC. 13. Pressure ulcers present on admission-wound care ordered 14. Depression / Anxiety / Insomnia - as noted per #2, polypharmacy. Restarted zoloft, melatonin, trazodone at lower dose. DVT prophylaxis: Heparin. DC planning: Patient will likely need nursing home, presentation is consistent with failure to thrive, failure to care for himself properly at home.. This patient was seen by Clint Limon PA-C under the supervision of Doctor Ayala. <Dhruv Ayala - Last Filed: 05/23/19 16:35> Subjective: Patient is more awake and alert. Heart rate in 80s. Normal sinus rhythm. Patient was tachycardic 135 last night. Patient is on multiple antidepressant and benzodiazepines and sedative. Also complained of gastric burning pain. Objective: General: Cooperative, awake and alert, oriented x3 HEENT: Atraumatic, PERRLA, EOMI, Normocephalic Neck: Supple, No JVD, Negative Carotid Bruits Lungs: Air entry severely diminished in all lung musa. No crepitation/rhonchi. Cardiovascular: Regular rate, Normal S1, Normal S2, No murmurs. Sometimes gets tachycardic. Abdomen: Bowel Sounds Present, Soft, Non Tender, Non-Distended Extremities: No edema, Capillary Refill Less than 3 Seconds Skin: Ulcer/ Wound - Skin breakdown of her left greater trochanter area. Musculoskeletal: No Tenderness to Palpation of Joints or Extremities, Arthritic Changes, Muscle Wasting Neurological: Deep Tendon Reflexes 2+/4 and Symmetrical, Neuro grossly intact - Physical Exam Vitals/I&O's: Vital Signs Temp Pulse Resp BP Pulse Ox 97.8 F 86 20 H 154/82 H 98 05/23/19 12:03 05/23/19 15:07 05/23/19 15:07 05/23/19 12:03 05/23/19 14:00 Oxygen Flow Rate (L/min) 2 Oxygen Delivery Method Nasal Cannula Weight: 154 lb 1.65 oz Body Mass Index (BMI) 21.1 Intake and Output for Last 24 Hours 05/21/19 05/22/19 05/23/19 23:59 23:59 23:59 Intake Total 760 / 760 3406.58 / 3526.58 1840 / 1840 Output Total 0 / 0 1250 / 1825 775 / 775 Balance 760 / 760 2156.58 / 1701.58 1065 / 1065 Microbiology Past 72 Hours 05/22/19 11:52 Swab (Method) Nasal Screen MRSA/MSSA - Final 05/22/19 02:15 Urine, Clean Catch Urine Culture - Preliminary Culture exhibits no growth. 05/21/19 22:45 Interface Orders Respiratory Panel (PCR) - Final Laboratory Results 05/22/19 17:09: POC Glucose 296 H 05/22/19 21:16: POC Glucose 305 H 05/23/19 06:02: WBC 17.0 H, RBC 3.03 L, Hgb 9.0 L, Hct 26.8 L, MCV 88.4 D, MCH 29.7, MCHC 33.6, RDW Std Deviation 50.6 H, RDW Coeff of Bernie 15.5 H, Plt Count 231, MPV 9.7, Immature Gran % (Auto) 0.900, Neut % (Auto) 92.9 H, Lymph % (Auto) 1.9 L, Ford % (Auto) 4.2, Eos % (Auto) 0.0, Baso % (Auto) 0.1, Absolute Neuts (auto) 15.8 H, Absolute Lymphs (auto) 0.32 L, Nucleated RBC % 0 05/23/19 06:02: Sodium 135 L, Potassium 3.5, Chloride 105, Carbon Dioxide 24.0, Anion Gap 6, BUN 37 H, Creatinine 1.92 H, Estim Creat Clear Calc 34.89, Est GFR (MDRD) Af Amer 45 L, Est GFR (MDRD) Non-Af 37 L, BUN/Creatinine Ratio 19.3, Glucose 229 H, Calcium 8.6, Total Creatine Kinase 499 H 05/23/19 06:02: Magnesium 2.1, TSH 0.33 L 05/23/19 06:36: POC Glucose 210 H 05/23/19 10:32: POC Glucose 255 H Current Medications Acetaminophen (Tylenol) 650 mg PO Q6H PRN PRN PRN Reason: Pain Score 1-3/Temp > 100.7 F Last Admin: 05/22/19 12:38 Dose: 650 mg Documented by: Al Hydroxide/Mg Hydroxide (Mylanta Ii) 30 ml PO Q6H PRN PRN PRN Reason: Gastric Burning Albuterol Sulfate (Ventolin Aerosols) 2.5 mg INHALATION Q2H PRN PRN PRN Reason: SOB/Wheezing Last Admin: 05/23/19 12:26 Dose: 2.5 mg Documented by: Albuterol/Ipratropium (Duoneb) 3 ml INHALATION Q4HWA.RT [facility] Last Admin: 05/23/19 15:07 Dose: 3 ml Documented by: Dextrose (D50w Syringe) 0 gm IV X1 PRN; Protocol PRN Reason: Hypoglycemia Glucagon () 1 mg IM .X1 PRN PRN Reason: Hypoglycemia Heparin Sodium (Porcine) (Heparin Na) 5,000 unit SC Q8 [facility] Last Admin: 05/23/19 14:12 Dose: 5,000 unit Documented by: Sodium Chloride () 250 mls @ 15 mls/hr IV .[id number] PRN PRN Reason: Saline Flush Last Infusion: 05/22/19 09:10 Dose: 0 mls/hr Documented by: Piperacillin Sod/Tazobactam (Sod 3.375 gm/ Sodium Chloride) 50 mls @ 12.5 mls/hr IV Q8 [facility] Last Admin: 05/23/19 14:12 Dose: 12.5 mls/hr Documented by: Doxycycline Hyclate 100 mg/ (Dextrose) 260 mls @ 250 mls/hr IV Q12 [facility] Last Infusion: 05/23/19 13:20 Dose: Infused Documented by: Sodium Chloride () 1,000 mls @ 100 mls/hr IV .Q10H [facility] Last Admin: 05/23/19 06:25 Dose: 100 mls/hr Documented by: Insulin Human Lispro (Humalog Kwikpen (Bkc)) 0 unit SC ACHS [facility]; Protocol Last Admin: 05/23/19 11:41 Dose: 2 u Documented by: Levothyroxine Sodium (Synthroid) 112 mcg PO DAILY@0600 [facility] Lorazepam (Ativan) 1 mg PO QHS PRN PRN PRN Reason: INSOMNIA Magnesium Hydroxide (Milk Of Magnesia) 30 ml PO DAILY PRN PRN PRN Reason: Constipation Melatonin (Melatonin) 3 mg PO QHS [facility] Metoprolol Tartrate (Lopressor (Beta Perry)) 50 mg PO BID [facility] Nitroglycerin (Nitrostat) 0.4 mg SUBLINGUAL Q5M PRN PRN Reason: CARDIAC/CHEST PAIN Nutritional Formula (Lactose Free) (Ensure Enlive) 120 ml PO 4X/DAY [facility] Last Admin: 05/23/19 14:12 Dose: 120 ml Documented by: Pantoprazole Sodium (Protonix) 40 mg PO DAILY [facility] Last Admin: 05/23/19 11:39 Dose: 40 mg Documented by: Polysaccharide Iron Complex (Ferrex 150) [facility] Prednisone () 40 mg PO DAILY@0800 [facility] Last Admin: 05/23/19 11:57 Dose: 40 mg Documented by: Sertraline HCl (Zoloft) 50 mg PO DAILY [facility] Last Admin: 05/23/19 11:39 Dose: 50 mg Documented by: Sodium Chloride () 5 - 15 ml IV UD PRN PRN Reason: SALINE FLUSH Last Admin: 05/23/19 06:25 Dose: 10 ml Documented by: Sucralfate (Carafate) 1 gm PO 1HR_ACHS [facility] Last Admin: 05/23/19 11:45 Dose: 1 gm Documented by: Throat Lozenges (Cepacol Sore Throat Lozenge) 1 lozenge MUCOUS MEM Q2H PRN PRN PRN Reason: Sore Throat/Cough Tramadol HCl (Ultram) 50 mg PO Q12H PRN PRN PRN Reason: Pain Score 6-1010 Last Admin: 05/22/19 17:15 Dose: 50 mg Documented by: Trazodone HCl (Desyrel) 50 mg PO QHS [facility] Assessment/Plan This patient was seen in conjunction with Clint MUSTAFA. I have independently interviewed and examined the patient and reviewed pertinent history, examination findings, laboratory and plan of management. I have reviewed the note and agree with the documented findings with the few additional points. In brief, patient is 69-year-old gentleman with history of severe COPD as per PFT in 2017 was admitted with shortness of breath, chest congestion and cough. Patient was found on the floor as per the neighbor therefore unwitnessed fall prior to hospitalization. Patient also has dementia. In ED, chest x-ray shows no focal airspace disease. CT chest was done and shows 20 x 8.8 nodule in the right upper lobe anteriorly. Emphysematous changes were noted. Overall, assessment is consistent with COPD exacerbation with acute bronchitis. Blood cultures x2 are pending. Respiratory panel negative. Urine culture negative. Nasal screen MRSA is pending. Patient has history of MRSA. [facility] Specialist is been consulted and consult note appreciated. He advised CT-guided lung biopsy. On IV Solu-Medrol, antibiotics, bronchodilator and oxygen. Continue bronchopulmonary hygiene, chest physiotherapy and incentive spirometry. CT scan from [facility] received and reviewed. First CT scan in April 19, 2019 shows noncalcified nodule in left upper lobe unchanged. Diffuse emphysematous changes noted. Second CT scan on May 10, 2019 reviewed. New infiltrate in right upper lobe from pneumonia. Few mildly enlarged mediastinal lymph nodes most likely reactive. There is no imaging therefore it is hard to ascertain that left upper lobe pneumonic infiltrate is right upper lobe nodule seen in present CT scan. Patient found A. fib on the monitor. I agreed anticoagulation his risk of fall and with history of anemia, needs further discussion with family. Patient also has toxic encephalopathy from polypharmacy. Patient was on lorazepam, Xanax, tramadol, sertraline, and trazodone 150 mg nightly. Xanax discontinued. Trazodone decreased to 50 mg daily. Patient intermittent tachycardia and hypertension may be related to neurotropic medication withdrawal Patient also has acute kidney injury and acute rhabdomyolysis secondary to fall and found on bed. Continue IV fluid. CK is trending down. Mild troponin elevation secondary to acute rhabdomyolysis. Patient does not have chest pain. Decubitus/pressure ulcer on left greater trochanter: Wound care. Other chronic comorbidities as mentioned above. Code Visit Inpatient E&M: 53513 [facility] Hosp L3
--- NOTE | 2019-05-23 13:03 | ECHOD_ITS ---
Reason For Study: AFIB Procedure This was a 2D Doppler, Color Flow transthoracic echocardiogram. The study was technically difficult. Exam performed portable in patient room. Left Ventricle Based upon the 2D echocardiographic images obtained there appears to be grossly normal left ventricular size, wall motion, and systolic function peer. The estimated ejection fraction is 65 %. There is evidence of diastolic dysfunction. Right Ventricle Based upon the 2D echocardiographic images obtained there appears to be grossly normal right ventricular size and systolic function. Atria Normal left atrium. Normal right atrium. No doppler evidence for ASD. Mitral Valve There is no mitral annular calcification. Normal mitral valve. Trivial mitral valve insufficiency. Tricuspid Valve Normal tricuspid valve. Trivial tricuspid valve insufficiency. Right ventricular systolic pressure estimated to be 44 mmHg. Aortic Valve The aortic valve is not well visualized. Pulmonic Valve The pulmonic valve is not well visualized. Great Vessels Normal sized aortic root. Pericardium/Pleural No pericardial effusion. MMode/2D Measurements & Calculations LVIDd: 4.8 cm IVSd: 1.0 cm Ao root diam: 2.8 cm LVIDs: 3.5 cm LVPWd: 0.96 cm RVDd: 2.8 cm FS: 26.2 % LAV(MOD-bp): 48.2 ml LA A4 area: 17.1 cm2 LA dimension(2D): 3.4 cm LAV(MOD-bp) Indexed: 25.5 ml/m2 LAV(MOD-sp2): 45.4 ml LAV(MOD-sp4): 45.0 ml RA A4 area: 16.2 cm2 Time Measurements MV dec time: 0.14 sec Doppler Measurements & Calculations MV E max ramu: 112.4 cm/sec Lat Peak E' Ramu: 9.7 cm/sec Med Peak E' Ramu: 7.8 cm/sec MV A max ramu: 133.1 cm/sec E/E' lat: 11.6 E/E' med: 14.4 MV E/A: 0.84 Ao V2 max: 141.8 cm/sec LV V1 max: 96.0 cm/sec PA V2 max: 87.2 cm/sec Ao max P.0 mmHg LV V1 max P.7 mmHg TR max ramu: 319.7 cm/sec TR max P.9 mmHg Interpretation Summary The study was technically difficult. Based upon the 2D echocardiographic images obtained there appears to be grossly normal left ventricular size, wall motion, and systolic function peer The estimated ejection fraction is 65 %. Trivial mitral valve insufficiency. Trivial tricuspid valve insufficiency. Right ventricular systolic pressure estimated to be 44 mmHg. There is evidence of diastolic dysfunction. Ordering Physician: Clint Limon Referring Physician: Lukas Garcia Performed By: Chantel Escobar RDCS, RVT
[2019-05-23 14:10] LABS: Magnesium 2.1 mg/dL (1.6-2.6); Thyroid Stim Hormone (TSH) 0.33 uIU/mL (0.358-3.74)
[2019-05-23 17:11] LABS: Bedside Glucose 333 mg/dL (70-110)
--- NOTE | 2019-05-23 20:21 | CON.PCM_ITS ---
Problem List (1) Atrial fibrillation Status: Acute (2) Abnormal cardiac enzyme level Status: Acute (3) Rhabdomyolysis Status: Acute (4) CORNELL (acute kidney injury) Status: Acute (5) Sepsis Status: Acute Qualifiers: Sepsis type: sepsis due to unspecified organism Sepsis acute organ dysfunction status: without acute organ dysfunction Qualified Code(s): A41.9 - Sepsis, unspecified organism (6) Pneumonia Status: Acute Qualifiers: Pneumonia type: due to unspecified organism Laterality: right Lung location: upper lobe of lung Qualified Code(s): J18.1 - Lobar pneumonia, unspecified organism (7) COPD (chronic obstructive pulmonary disease) Status: Chronic Qualifiers: COPD type: unspecified COPD (8) Adrenal insufficiency Status: Chronic Reason for Consult Date of Consultation: 05/23/19 History of Present Illness: The patient is a 69 year [id number] white male who states he does have a past history of a rapid heart rate which had to be shocked many years ago but does not recall undergoing any further cardiovascular testing whose main concern at this time is his underlying COPD/pneumonia and a pulmonary mass status post a recent biopsy (results unknown) at [facility] who is referred for evaluation of atrial fibrillation with RVR and abnormal cardiac enzymes thought secondary to a diagnosis of rhabdomyolysis and acute renal insufficiency superimposed upon concerns of underlying pneumonia/sepsis. The patient does not recall all the details of his recent ongoing evaluation and care. He states that he has been evaluated in both [facility] and [facility] for his underlying COPD and pneumonia and pulmonary mass lesion issues. He states he returned home, was in bed, was weak, could not get up, contacted his friend who subsequently contacted the EMS, who subsequently brought him to the hospital for further evaluation. He was found to have markedly elevated CPK levels and indeterminate troponin I levels and elevated creatinine levels thought compatible with his prolonged supine state and rhabdomyolysis. He was also thought to have concerns of his underlying COPD with pneumonia and possible sepsis. He was placed in the hospital for further evaluation and care. He has been undergoing evaluation care by internal medicine. During this time his CPK levels and troponin I levels and creatinine levels have declined. His cardiac rhythm was originally sinus rhythm and he subsequently had an episode of atrial fibrillation with RVR. He has been undergoing radiologic studies with chest x- ray and chest CT scan which have demonstrated findings of COPD in the right upper lobe nodule respectively. His previous outside hospital biopsy reports appear to be unavailable at this time for review. He has also undergone evaluation with a transthoracic echocardiogram. The results are as noted below. He states he has not been having chest discomfort. His main concern has been his shortness of breath and dyspnea. He has not necessarily sensed ongoing rapid heart rates. There is been no near syncope or syncope. He has denied any ongoing lower extremity peripheral pitting edema. He was reportedly on multiple medications including multiple beta-blockers. His medications were withheld. He has been reported as appearing to be much more lucid as his medications have cleared his system. He has now been restarted back on a single beta-perry. He has been noted to have returned to sinus rhythm. Follow-up ECG demonstrated sinus rhythm with low voltage QRS in the limb leads with possible left atrial enlargement and nonspecific ST segment abnormality. [] Past Medical History Allergies/Adverse Reactions: Allergies vancomycin Allergy (Verified 05/21/19 16:20) Anaphylaxis Home Medications: Ambulatory Orders Medication Instructions Recorded Albuterol Sulfate 2.5 mg IH DAILY 07/21/18 ALPRAZolam [Xanax] 1 - 2 tab PO TID PRN PRN 05/21/19 Benztropine Mesylate 1 mg PO BID 05/21/19 Budesonide Aerosol [Pulmicort 0.5 mg INHALATION DAILY 05/21/19 Aerosol] Clonidine HCl [Catapres] 0.1 mg PO DAILY 05/21/19 Levothyroxine [Synthroid] 112 mcg PO DAILY 05/21/19 Lorazepam [Ativan] 2 mg PO QHS 05/21/19 Metoprolol Succinate 25 mg PO DAILY 05/21/19 Montelukast [Singulair] 10 mg PO QHS 05/21/19 Nebivolol HCl [Bystolic] 10 mg PO DAILY 05/21/19 Olmesartan/Hydrochlorothiazide 1 ea PO DAILY 05/21/19 [Olmesartan-Hctz 40-12.5 mg Tab] Pantoprazole Sodium [Protonix] 40 mg PO DAILY 05/21/19 Propranolol HCl [Inderal (Beta 20 mg PO DAILY 05/21/19 [place])] Sertraline HCl [Zoloft] 50 mg PO DAILY 05/21/19 Sucralfate [Carafate] 1 gm PO 4X/DAY 05/21/19 Tiotropium [place] [Spiriva 18 MCG] 1 puff INHALATION DAILY 05/21/19 Valbenazine Tosylate [Ingrezza] 80 mg PO DAILY 05/21/19 traMADol [Ultram (G)] 50 mg PO Q6H PRN PRN 05/21/19 traZODone [Desyrel] 150 mg PO QHS 05/21/19 Past Medical History (Chronic Problems): Chronic Problems COPD (chronic obstructive pulmonary disease) (Chronic) History of MRSA infection of lungs (Chronic) 2010 and 2015 Adrenal insufficiency (Chronic) Surgical History: - - colonoscopy and EGD, bronch 2011, Psychiatric History: No pertinent psych hx - *Family History Maternal History Items: No pertinent history Paternal History Items: No pertinent history Lives: Alone Smoking Status: Former smoker Tobacco Use: Non-smoker Alcohol: None Drugs: None Review of Systems - Review of Systems General: Reports: Weakness. Denies: Fever, Fatigue, Night Sweats Cardiovascular: Reports: Shortness of Breath. Denies: Chest Discomfort, Orthopnea, PND, Peripheral Edema, Palpitations, Lightheadedness, Dizziness, Near Syncope, Syncope Respiratory: Reports: Shortness of Breath. Denies: Cough, Sputum Production, Hemoptysis Gastrointestinal: Denies: Hematemesis, Hematochezia, Melena Genitourinary: Denies: Dysuria, Hematuria Skin: Denies: Rash Subjectve: This is a 69-year-old white male who appears to be somewhat older than stated age and appears to be resting comfortably at the moment in no acute distress. Objective: Vital Signs Temp Pulse Resp BP Pulse Ox 98 F 102 H 18 160/87 H 98 05/23/19 17:00 05/23/19 19:00 05/23/19 17:00 05/23/19 17:00 05/23/19 18:00 Oxygen Flow Rate (L/min) 2 Oxygen Delivery Method Room Air Weight: 154 lb 1.65 oz Body Mass Index (BMI) 21.1 Intake and Output for Last 24 Hours 05/21/19 05/22/19 05/23/19 23:59 23:59 23:59 Intake Total 760 / 760 3406.58 / 3526.58 3190 / 3190 Output Total 0 / 0 1250 / 1825 1175 / 1175 Balance 760 / 760 2156.58 / 1701.58 2014 General: Awake, Alert, Oriented x 3, Cooperative, No Acute Distress HEENT: Atraumatic, Normocephalic, PERRL, EOMI, Sclera Non Icteric Oral: Moist Mucosa Neck: Supple, Good ROM, No JVD Lungs: Inspiratory Wheezes - Kobe, Expiratory Wheezes-Kobe Cardiovascular: Regular Rhythm, Normal S1, Normal S2 Vascular: No Carotid Bruits Abdomen: Bowel Sounds Present, Soft, Non Tender Extremities: No edema Psych/Mental Status: Appropriate 05/23/19 06:02: WBC 17.0 H, RBC 3.03 L, Hgb 9.0 L, Hct 26.8 L, MCV 88.4 D, MCH 29.7, MCHC 33.6, Plt Count 231, MPV 9.7, Immature Gran % (Auto) 0.900, Neut % (Auto) 92.9 H, Lymph % (Auto) 1.9 L, [place] % (Auto) 4.2, Eos % (Auto) 0.0, Baso % (Auto) 0.1, Absolute Neuts (auto) 15.8 H, Nucleated RBC % 0 05/23/19 06:02: Sodium 135 L, Potassium 3.5, Chloride 105, Carbon Dioxide 24.0, Anion Gap 6, BUN 37 H, Creatinine 1.92 H, Est GFR (MDRD) Af Amer 45 L, Est GFR (MDRD) Non-Af 37 L, BUN/Creatinine Ratio 19.3, Glucose 229 H, Calcium 8.6 05/23/19 06:02: Magnesium 2.1 Rhythm: Sinus rhythm EKG: As noted above ECHO: Interpretation Summary The study was technically difficult. Based upon the 2D echocardiographic images obtained there appears to be grossly normal left ventricular size, wall motion, and systolic function peer The estimated ejection fraction is 65 %. Trivial mitral valve insufficiency. Trivial tricuspid valve insufficiency. Right ventricular systolic pressure estimated to be 44 mmHg. There is evidence of diastolic dysfunction. CXR: As noted above Chest CT Scan: As noted above Assessment/Plan 1. Atrial fibrillation with rapid ventricular response The patient appears to have a history of a tachycardia for which she had to be shocked in the past. This does raise concern the patient has had atrial fibrillation in the past. His recurrent event may be compatible to a combination of his age, history of atrial fibrillation, superimposed upon his underlying pulmonary disease process, infectious disease process, etc. At the moment he has been placed on rate control therapy with beta-blockers. He has had return to sinus rhythm. He has been on anticoagulant therapy with subcutaneous heparin. It is unclear as to whether he is a patient who the risk benefit ratio is in his favor with respect to the potential of long-term oral systemic anti-coagulant therapy based upon his recent report of polypharmacy use, reported mental status changes, and his unknown pulmonary disease process/lung mass lesion results, etc. Undergoing evaluation with laboratory studies. Has had markedly elevated CPK levels. They have been decreasing. He has troponin I levels that have been indeterminant and decreasing. They may be secondary to concerns of rhabdomyolysis brought out by his prolonged supine state. However, other cardiovascular disease such as CAD, has not necessarily been excluded. Thus, at some point in time as his clinical course hopefully improves and stabilizes he may need further evaluation which may include a pharmacologic stress nuclear imaging study and/or eventually a diagnostic cardiac catheterization. In the meantime he will continue medical management as deemed appropriate. 2. Abnormal cardiac enzymes He has had markedly elevated CPK levels and indeterminate troponin I levels. The pattern would appear compatible with a history of underlying rhabdomyolysis based upon his history of prolonged supine status, etc. However, as noted above, additional cardiovascular disease cannot necessarily be excluded. Thus he may need evaluation care as noted above. In the meantime he should continue medical management for concerns of rhabdomyolysis as well as the possibility of underlying cardiovascular disease as deemed appropriate. 3. Rhabdomyolysis His history does suggest rhabdomyolysis. His markedly elevated CPK levels and indeterminate troponin I levels appear compatible with finding of rhabdomyolysis. He will continue evaluation care per internal medicine. 4. Sepsis There has been concerns of underlying infectious disease related issues and a sepsis syndrome. He is continuing evaluation care per internal medicine. 5. Pneumonia He states his big concern recently has been his pulmonary disease process with recurrent pneumonia. He is continuing evaluation care per internal medicine. 6. COPD He does have a history of COPD. He states he has been followed by his primary care physician for this. He will need continued evaluation care which may include pulmonology input over time based upon his underlying pulmonary disease process and the concerns of her recent pulmonary nodule status post biopsy. The [facility] staff is attempting to retrieve his recent pulmonary biopsy report/findings for continuity of care purposes. 7. Adrenal insufficiency The patient reportedly has a history of adrenal insufficiency. He will need continued medical management and support as deemed appropriate as he goes through his acute process. The above was discussed with the patient and the [facility] staff. This note was generated using a voice recognition system and there may be incorrect words, spelling or punctuation that were not noted when reviewing the office note prior to saving.
[2019-05-23] MEDS: Glucerna Shake 120 ML LIQUID PO (22:10)
[2019-05-23] MEDS: traZODone 50 MG Tablet PO (22:10)
[2019-05-23] MEDS: MELATONIN 3 MG TABLET PO (22:11)
[2019-05-23] MEDS: Metoprolol Tartrate 50 MG Tablet PO (22:11)
[2019-05-23 22:20] LABS: Bedside Glucose 337 mg/dL (70-110)
[2019-05-24] VITALS (22 sets, daily range): BP systolic 144–178; BP diastolic 78–95; PULSE 75–115; RESP 16–24; TEMP 36.6–37.4; O2SAT 95–98
[2019-05-24] MEDS: Albuterol 2.5 MG/3 ML VIAL.NEB. INHALATION (00:56)
[2019-05-24] MEDS: Heparin Injection (Vial) 5,000 UNIT/ML VIAL 5000 UNIT SC ×3 (05:23→21:04)
[2019-05-24] MEDS: Levothyroxine 112 MCG Tablet PO (05:23)
[2019-05-24] MEDS: 0.9% Normal Saline 1,000 ML 100 ML IV (05:28)
[2019-05-24 06:22] LABS: Anion Gap 7 (5-15); BUN 31 mg/dL (7-18); BUN/Creat Ratio 19.9 RATIO (10-20); CPK Total, Creatine Kinase 245 U/L (39-308); Calcium,Total 8.3 mg/dL (8.5-10.1); Chloride 111 mmol/L (98-107); Cholesterol 140 mg/dL (200); Creatinine, Serum 1.56 mg/dL (0.70-1.30); EST Glomerular Filtration Rate 47 mL/min (>60); Est Glom Filt Rate - Afr Amer 57 mL/min (>60); Estimated Creatinine Clearance 43.13 ml/min; Glucose 172 mg/dL (74-106); High Density Lipoprotein 41 mg/dL; Potassium 3.6 mmol/L (3.5-5.1); Sodium Level 142 mmol/L (136-145); Triglycerides 98 mg/dL; Very Low Density Lipoprotein 20 mg/dL (5-40)
[2019-05-24] MEDS: Insulin Lispro 100 UNIT/ML INSULN.PEN SC ×3 (06:34→21:05)
[2019-05-24] MEDS: Sucralfate 1 GM Tablet PO ×4 (06:34→21:04)
[2019-05-24 06:40] LABS: Bedside Glucose 151 mg/dL (70-110)
[2019-05-24] MEDS: Ipratropium/Albuterol Sulfate 3 ML AMPUL.NEB INHALATION ×4 (07:10→19:04)
[2019-05-24 09:10] LABS: T4 Free Direct 0.86 ng/dL (0.76-1.46)
[2019-05-24] MEDS: Pantoprazole Sodium 40 MG Tablet PO (09:15)
[2019-05-24] MEDS: Iron Polysaccharide Complex 150 MG CAPSULE PO (09:15)
[2019-05-24] MEDS: Sertraline 50 MG Tablet PO (09:15)
[2019-05-24] MEDS: predniSONE 20 MG Tablet 40 MG PO (09:16)
[2019-05-24] MEDS: Glucerna Shake 120 ML LIQUID PO ×4 (09:18→21:04)
[2019-05-24] MEDS: Metoprolol Tartrate 50 MG Tablet PO ×2 (09:19→21:05)
[2019-05-24] MEDS: Aspirin 81 MG TAB.CHEW PO (09:21)
--- NOTE | 2019-05-24 09:21 | PCM.PN.CARD ---
Subjectve: The patient is awake and alert. He denies ongoing rapid heart rate, chest discomfort, or worsening shortness of breath/dyspnea. He states his main concern has been his chronic shortness of breath and dyspnea. Objective: Vital Signs Temp Pulse Resp BP Pulse Ox 97.8 F 102 H 18 155/90 H 98 05/24/19 09:05 05/24/19 09:05 05/24/19 09:05 05/24/19 09:05 05/24/19 09:05 Oxygen Flow Rate (L/min) 2 Oxygen Delivery Method Room Air Weight: 154 lb 12.232 oz Body Mass Index (BMI) 21.1 Intake and Output for Last 24 Hours 05/22/19 05/23/19 05/24/19 23:59 23:59 23:59 Intake Total 3406.58 / 3526.58 4104.42 / 4104.42 682.67 / 682.67 Output Total 1250 / 1825 1425 / 1425 400 / 400 Balance 2156.58 / 1701.58 2679.42 / 2679.42 282.67 / 282.67 General: Awake, Alert, Cooperative, No Acute Distress HEENT: Atraumatic, Normocephalic, PERRL, EOMI Neck: Supple, Good ROM, No JVD Lungs: Inspiratory Wheezes - Kobe, Inspiratory Wheezes-Left Cardiovascular: Regular Rhythm, Normal S1, Normal S2 Abdomen: Bowel Sounds Present, Soft, Non Tender Extremities: No edema Psych/Mental Status: Appropriate 05/23/19 06:02: Magnesium 2.1 05/24/19 05:25: Sodium 142, Potassium 3.6, Chloride 111 H, Carbon Dioxide 24.0, Anion Gap 7, BUN 31 H, Creatinine 1.56 H, Est GFR (MDRD) Af Amer 57 L, Est GFR (MDRD) Non-Af 47 L, BUN/Creatinine Ratio 19.9, Glucose 172 H, Calcium 8.3 L, Triglycerides 98, Cholesterol 140, LDL Cholesterol 79, VLDL Cholesterol 20, HDL Cholesterol 41 Rhythm: Sinus rhythm Medical Necessity - Tobacco Use Smoking Status: Former smoker Tobacco Use: Non-smoker Assessment/Plan 1. Atrial fibrillation with rapid ventricular response The patient appears to have a history of a tachycardia for which she had to be shocked in the past. This does raise concern the patient has had atrial fibrillation in the past. His recurrent event may be compatible to a combination of his age, history of atrial fibrillation, superimposed upon his underlying pulmonary disease process, infectious disease process, etc. At the moment he has been placed on rate control therapy with beta-blockers. He has had return to sinus rhythm. He has been on anticoagulant therapy with subcutaneous heparin. It is unclear as to whether he is a patient who the risk benefit ratio is in his favor with respect to the potential of long-term oral systemic anti-coagulant therapy based upon his recent report of polypharmacy use, reported mental status changes, and his unknown pulmonary disease process/lung mass lesion results, etc. 2. Abnormal cardiac enzymes He has had markedly elevated CPK levels and indeterminate troponin I levels. The pattern would appear compatible with a history of underlying rhabdomyolysis based upon his history of prolonged supine status, etc. However, as noted above, additional cardiovascular disease cannot necessarily be excluded. Thus he may need evaluation with noninvasive/invasive studies as deemed appropriate. In the meantime he should continue medical management for concerns of rhabdomyolysis as well as the possibility of underlying cardiovascular disease as deemed appropriate. However, additional evaluation, may depend upon when his pulmonary status allows. 3. Rhabdomyolysis His history does suggest rhabdomyolysis. His markedly elevated CPK levels and indeterminate troponin I levels appear compatible with finding of rhabdomyolysis. He will continue evaluation care per internal medicine. 4. Sepsis There has been concerns of underlying infectious disease related issues and a sepsis syndrome. He is continuing evaluation care per internal medicine. 5. Pneumonia He states his big concern recently has been his pulmonary disease process with recurrent pneumonia. He is continuing evaluation care per internal medicine. 6. COPD He does have a history of COPD. He states he has been followed by his primary care physician for this. He will need continued evaluation care which may include pulmonology input over time based upon his underlying pulmonary disease process and the concerns of her recent pulmonary nodule status post biopsy. The [facility] staff is attempting to retrieve his recent pulmonary biopsy report/findings for continuity of care purposes. 7. Adrenal insufficiency The patient reportedly has a history of adrenal insufficiency. He will need continued medical management and support as deemed appropriate as he goes through his acute process. The above was discussed with the patient. This note was generated using a voice recognition system and there may be incorrect words, spelling or punctuation that were not noted when reviewing the office note prior to saving.
--- NOTE | 2019-05-24 11:27 | NURSING ---
Patient's son, Nathan phones and would like to set up a meeting to discuss his father's condition. Informed RAMSEY Jaramillo of same. Per Clint, if Nathan can be here before noon he would meet with him. RN called and spoke with Nathan to make him aware of same. Nathan states he will be here.
[2019-05-24] MEDS: amLODIPine 2.5 MG Tablet PO (11:42)
[2019-05-24 12:00] LABS: Bedside Glucose 161 mg/dL (70-110)
--- NOTE | 2019-05-24 13:13 | PN_ITS ---
Patient Problems: Active and Suspected Problems Atrial fibrillation (Acute) Abnormal cardiac enzyme level (Acute) Rhabdomyolysis (Acute) Subjective: The patient was seen and examined at the bedside this morning. Events from the last 24 hours have been reviewed. The patient is currently afebrile, hemodynamically stable and maintaining appropriate oxygen saturations on room air. The patient denies any resting shortness of breath at the present time. Objective: The patient's most recent lab work, culture data and imaging studies have all been personally reviewed. - Physical Exam Vitals/I&O's: Vital Signs Temp Pulse Resp BP Pulse Ox 97.8 F 93 16 144/88 H 98 05/24/19 09:05 05/24/19 11:15 05/24/19 10:11 05/24/19 09:19 05/24/19 10:04 Oxygen Flow Rate (L/min) 2 Oxygen Delivery Method Room Air Weight: 154 lb 12.232 oz Body Mass Index (BMI) 21.1 Intake and Output for Last 24 Hours 05/22/19 05/23/19 05/24/19 23:59 23:59 23:59 Intake Total 3406.58 / 3526.58 4104.42 / 4104.42 1092.67 / 1092.67 Output Total 1250 / 1825 1425 / 1425 675 / 675 Balance 2156.58 / 1701.58 2679.42 / 2679.42 417.67 / 417.67 General: Alert, Cooperative, No apparent distress HEENT: Atraumatic, PERRLA, Normocephalic Oral: No Gingival or Mucosal Lesions/ Ulcerations Neck: Supple, No Nodes, Trachea Midline Lungs: No rhonchi, No wheeze, No rales, Diminished Cardiovascular: Regular rate, Regular Rhythm, Normal S1, Normal S2 Abdomen: Bowel Sounds Present, Soft, Non Tender Extremities: No clubbing, No cyanosis, No edema Skin: - - No change from previous. Musculoskeletal: No Tenderness to Palpation of Joints or Extremities Lymphatic: No Cervical, Supraclavicular, or Inguinal Adenopathy Neurological: Cranial nerves II-XII grossly intact, Neuro grossly intact Psych/Mental Status: Normal Affect, Appropriate Microbiology Past 72 Hours 05/22/19 02:15 Urine, Clean Catch Urine Culture - Final Culture exhibits no growth. 05/22/19 11:52 Swab (Method) Nasal Screen MRSA/MSSA - Final 05/21/19 22:45 Interface Orders Respiratory Panel (PCR) - Final Laboratory Results 05/23/19 06:02: Magnesium 2.1, TSH 0.33 L 05/23/19 17:03: POC Glucose 333 H 05/23/19 21:59: POC Glucose 337 H 05/24/19 05:25: Sodium 142, Potassium 3.6, Chloride 111 H, Carbon Dioxide 24.0, Anion Gap 7, BUN 31 H, Creatinine 1.56 H, Estim Creat Clear Calc 43.13, Est GFR (MDRD) Af Amer 57 L, Est GFR (MDRD) Non-Af 47 L, BUN/Creatinine Ratio 19.9, Glucose 172 H, Calcium 8.3 L, Total Creatine Kinase 245, Triglycerides 98, Cholesterol 140, LDL Cholesterol 79, VLDL Cholesterol 20, HDL Cholesterol 41 05/24/19 05:25: Free T4 0.86 05/24/19 06:32: POC Glucose 151 H 05/24/19 11:36: POC Glucose 161 H Labs (Last 48 Hours) 05/22/19 05/22/19 05/22/19 03:46 17:09 21:16 WBC RBC Hgb Hct MCV MCH MCHC RDW Std Deviation RDW Coeff of Bernie Plt Count MPV Immature Gran % (Auto) Neut % (Auto) Lymph % (Auto) Pickett % (Auto) Eos % (Auto) Baso % (Auto) Absolute Neuts (auto) Absolute Lymphs (auto) Nucleated RBC % Sodium Potassium Chloride Carbon Dioxide Anion Gap BUN Creatinine Estim Creat Clear Calc Est GFR (MDRD) Af Amer Est GFR (MDRD) Non-Af BUN/Creatinine Ratio Glucose Calcium Magnesium Iron 31 L TIBC 235 L Iron Saturation 13.2 L Ferritin 1623 H Total Creatine Kinase Triglycerides Cholesterol LDL Cholesterol VLDL Cholesterol HDL Cholesterol TSH Free T4 POC Glucose 296 H 305 H 05/23/19 05/23/19 05/23/19 06:02 06:02 06:02 WBC 17.0 H RBC 3.03 L Hgb 9.0 L Hct 26.8 L MCV 88.4 D MCH 29.7 MCHC 33.6 RDW Std Deviation 50.6 H RDW Coeff of Bernie 15.5 H Plt Count 231 MPV 9.7 Immature Gran % (Auto) 0.900 Neut % (Auto) 92.9 H Lymph % (Auto) 1.9 L Pickett % (Auto) 4.2 Eos % (Auto) 0.0 Baso % (Auto) 0.1 Absolute Neuts (auto) 15.8 H Absolute Lymphs (auto) 0.32 L Nucleated RBC % 0 Sodium 135 L Potassium 3.5 Chloride 105 Carbon Dioxide 24.0 Anion Gap 6 BUN 37 H Creatinine 1.92 H Estim Creat Clear Calc 34.89 Est GFR (MDRD) Af Amer 45 L Est GFR (MDRD) Non-Af 37 L BUN/Creatinine Ratio 19.3 Glucose 229 H Calcium 8.6 Magnesium 2.1 Iron TIBC Iron Saturation Ferritin Total Creatine Kinase 499 H Triglycerides Cholesterol LDL Cholesterol VLDL Cholesterol HDL Cholesterol TSH 0.33 L Free T4 POC Glucose 05/23/19 05/23/19 05/23/19 06:36 10:32 17:03 WBC RBC Hgb Hct MCV MCH MCHC RDW Std Deviation RDW Coeff of Bernie Plt Count MPV Immature Gran % (Auto) Neut % (Auto) Lymph % (Auto) Pickett % (Auto) Eos % (Auto) Baso % (Auto) Absolute Neuts (auto) Absolute Lymphs (auto) Nucleated RBC % Sodium Potassium Chloride Carbon Dioxide Anion Gap BUN Creatinine Estim Creat Clear Calc Est GFR (MDRD) Af Amer Est GFR (MDRD) Non-Af BUN/Creatinine Ratio Glucose Calcium Magnesium Iron TIBC Iron Saturation Ferritin Total Creatine Kinase Triglycerides Cholesterol LDL Cholesterol VLDL Cholesterol HDL Cholesterol TSH Free T4 POC Glucose 210 H 255 H 333 H 05/23/19 05/24/19 05/24/19 21:59 05:25 05:25 WBC RBC Hgb Hct MCV MCH MCHC RDW Std Deviation RDW Coeff of Bernie Plt Count MPV Immature Gran % (Auto) Neut % (Auto) Lymph % (Auto) Pickett % (Auto) Eos % (Auto) Baso % (Auto) Absolute Neuts (auto) Absolute Lymphs (auto) Nucleated RBC % Sodium 142 Potassium 3.6 Chloride 111 H Carbon Dioxide 24.0 Anion Gap 7 BUN 31 H Creatinine 1.56 H Estim Creat Clear Calc 43.13 Est GFR (MDRD) Af Amer 57 L Est GFR (MDRD) Non-Af 47 L BUN/Creatinine Ratio 19.9 Glucose 172 H Calcium 8.3 L Magnesium Iron TIBC Iron Saturation Ferritin Total Creatine Kinase 245 Triglycerides 98 Cholesterol 140 LDL Cholesterol 79 VLDL Cholesterol 20 HDL Cholesterol 41 TSH Free T4 0.86 POC Glucose 337 H 05/24/19 05/24/19 06:32 11:36 WBC RBC Hgb Hct MCV MCH MCHC RDW Std Deviation RDW Coeff of Bernie Plt Count MPV Immature Gran % (Auto) Neut % (Auto) Lymph % (Auto) Pickett % (Auto) Eos % (Auto) Baso % (Auto) Absolute Neuts (auto) Absolute Lymphs (auto) Nucleated RBC % Sodium Potassium Chloride Carbon Dioxide Anion Gap BUN Creatinine Estim Creat Clear Calc Est GFR (MDRD) Af Amer Est GFR (MDRD) Non-Af BUN/Creatinine Ratio Glucose Calcium Magnesium Iron TIBC Iron Saturation Ferritin Total Creatine Kinase Triglycerides Cholesterol LDL Cholesterol VLDL Cholesterol HDL Cholesterol TSH Free T4 POC Glucose 151 H 161 H Microbiology 05/22/19 02:15 Urine, Clean Catch Urine Culture - Final Culture exhibits no growth. 05/22/19 11:52 Swab (Method) Nasal Screen MRSA/MSSA - Final 05/21/19 22:45 Interface Orders Respiratory Panel (PCR) - Final Current Medications Acetaminophen (Tylenol) 650 mg PO Q6H PRN PRN PRN Reason: Pain Score 1-3/Temp > 100.7 F Last Admin: 05/22/19 12:38 Dose: 650 mg Documented by: Al Hydroxide/Mg Hydroxide (Mylanta Ii) 30 ml PO Q6H PRN PRN PRN Reason: Gastric Burning Albuterol Sulfate (Ventolin Aerosols) 2.5 mg INHALATION Q2H PRN PRN PRN Reason: SOB/Wheezing Last Admin: 05/24/19 00:56 Dose: 2.5 mg Documented by: Albuterol/Ipratropium (Duoneb) 3 ml INHALATION Q4HWA.RT [facility] Last Admin: 05/24/19 10:11 Dose: 3 ml Documented by: Amlodipine Besylate (Norvasc) 2.5 mg PO DAILY [facility] Last Admin: 05/24/19 11:42 Dose: 2.5 mg Documented by: Aspirin (Aspirin, Baby) 81 mg PO DAILY@0800 [facility] Last Admin: 05/24/19 09:21 Dose: 81 mg Documented by: Dextrose (D50w Syringe) 0 gm IV X1 PRN; Protocol PRN Reason: Hypoglycemia Glucagon () 1 mg IM .X1 PRN PRN Reason: Hypoglycemia Heparin Sodium (Porcine) (Heparin Na) 5,000 unit SC Q8 [facility] Last Admin: 05/24/19 05:23 Dose: 5,000 unit Documented by: Sodium Chloride () 250 mls @ 15 mls/hr IV .[id number] PRN PRN Reason: Saline Flush Last Infusion: 05/24/19 04:05 Dose: 0 mls/hr Documented by: Piperacillin Sod/Tazobactam (Sod 3.375 gm/ Sodium Chloride) 50 mls @ 12.5 mls/hr IV Q8 [facility] Last Infusion: 05/24/19 09:23 Dose: Infused Documented by: Sodium Chloride () 1,000 mls @ 100 mls/hr IV .Q10H [facility] Last Admin: 05/24/19 05:28 Dose: 100 mls/hr Documented by: Insulin Human Lispro (Humalog Kwikpen (Bkc)) 0 unit SC ACHS [facility]; Protocol Last Admin: 05/24/19 11:42 Dose: 1 u Documented by: Levothyroxine Sodium (Synthroid) 112 mcg PO DAILY@0600 [facility] Last Admin: 05/24/19 05:23 Dose: 112 mcg Documented by: Lorazepam (Ativan) 0.5 mg PO QHS PRN PRN PRN Reason: INSOMNIA Magnesium Hydroxide (Milk Of Magnesia) 30 ml PO DAILY PRN PRN PRN Reason: Constipation Melatonin (Melatonin) 3 mg PO QHS [facility] Last Admin: 05/23/19 22:11 Dose: 3 mg Documented by: Metoprolol Tartrate (Lopressor (Beta Perry)) 50 mg PO BID [facility] Last Admin: 05/24/19 09:19 Dose: 50 mg Documented by: Nitroglycerin (Nitrostat) 0.4 mg SUBLINGUAL Q5M PRN PRN Reason: CARDIAC/CHEST PAIN Nutritional Formula (Lactose Free) (Glucerna Shake) 120 ml PO 4X/DAY [facility] Last Admin: 05/24/19 09:18 Dose: 120 ml Documented by: Nystatin (Nystatin) 500,000 unit PO 4X/DAY [facility] Pantoprazole Sodium (Protonix) 40 mg PO DAILY [facility] Last Admin: 05/24/19 09:15 Dose: 40 mg Documented by: Polysaccharide Iron Complex (Ferrex 150) [facility] Last Admin: 05/24/19 09:15 Dose: 150 mg Documented by: Prednisone () 40 mg PO DAILY@0800 [facility] Last Admin: 05/24/19 09:16 Dose: 40 mg Documented by: Sertraline HCl (Zoloft) 50 mg PO DAILY [facility] Last Admin: 05/24/19 09:15 Dose: 50 mg Documented by: Sodium Chloride () 5 - 15 ml IV UD PRN PRN Reason: SALINE FLUSH Last Admin: 05/23/19 06:25 Dose: 10 ml Documented by: Sucralfate (Carafate) 1 gm PO 1HR_ACHS [facility] Last Admin: 05/24/19 11:42 Dose: 1 gm Documented by: Throat Lozenges (Cepacol Sore Throat Lozenge) 1 lozenge MUCOUS MEM Q2H PRN PRN PRN Reason: Sore Throat/Cough Tramadol HCl (Ultram) 50 mg PO Q12H PRN PRN PRN Reason: Pain Score 6-10/10 Last Admin: 05/22/19 17:15 Dose: 50 mg Documented by: Trazodone HCl (Desyrel) 50 mg PO QHS [facility] Last Admin: 05/23/19 22:10 Dose: 50 mg Documented by: Medical Necessity - Tobacco Use Smoking Status: Former smoker Tobacco Use: Non-smoker Assessment/Plan All Active Problems Atrial fibrillation (Acute) Abnormal cardiac enzyme level (Acute) Rhabdomyolysis (Acute) Sepsis (Acute) Pneumonia (Acute) CORNELL (acute kidney injury) (Acute) RECOMMENDATIONS: 1. Continue bronchodilators and antibiotics. For simplicity sake, the patient's doxycycline and Zosyn can likely be discontinued and transitioned to Levaquin. 2. Continue prednisone 40 mg daily. 3. Wean supplemental oxygen to maintain saturations at or above 90%. 4. Encourage incentive spirometer use and mobilize patient as tolerated. 5. At discharge, the patient should be sent home on a triple therapy inhaler regimen. He was apparently receiving both Advair and Spiriva previously. 6. Outpatient pulmonary follow-up within 2 weeks of discharge is warranted. IMPRESSIONS: 1. Pulmonary nodule The patient does have evidence of a right upper lobe lung nodule, which was not previously noted on CT chest in 2017. The patient does have a prior extensive smoking history and therefore this lesion would be of concern. Nevertheless, a report from the patient's CT chest through the [facility] dated May 10 indicated that there was no such parenchymal abnormality. I do feel that it would be highly unlikely that the patient developed a large lung nodule of clinical concern in the time that has elapsed since his last chest imaging study. I do have to wonder if this area could also represent something like rounded atelectasis or an AV malformation. I do think that it is likely reasonable to hold off on a percutaneous needle biopsy at this particular juncture. I do recommend that the patient follow-up in the pulmonary medicine clinic, at which time, repeat chest imaging can be completed in 6 to 8 weeks. If the lesion is still noted to be present at that time, percutaneous needle biopsy can be arranged. 2. Acute hypoxemic respiratory insufficiency, likely secondary to COPD with exacerbation Potentially related to viral etiology versus under treatment of baseline COPD due to possible compliance issues. The patient may also have underlying tracheobronchitis. For now, agree with continuing antibiotics. However, given the lack of infiltrate noted on CT chest, the patient can likely be transitioned to Levaquin as monotherapy to complete a 7-day treatment course. His stress dose steroids have been discontinued and he has been placed on prednisone 40 mg daily. He can be treated with this for a 5-day burst. Wean supplemental oxygen to maintain saturations at or above 90%. Encourage incentive spirometer use and mobilize patient as tolerated. 3. Acute on chronic kidney disease Likely prerenal in etiology. Improved with supplemental IV fluid hydration. Continue to monitor urine output. No indication for renal replacement therapy at this time. 4. Poor historian/hypertension/GERD/depression/hypothyroidism Complicates care, management, recovery and prognosis. Continue home medications as indicated. This note was generated with [employer] dictation software. It may contain incorrect words, spelling, and punctuation that were not noted in checking the note before signing. Code Visit Inpatient E&M: 17048 Subs Hosp L2
--- NOTE | 2019-05-24 13:48 | PN_ITS ---
<Clint Limon - Last Filed: 05/24/19 14:26> Patient Problems: Active and Suspected Problems Atrial fibrillation (Acute) Abnormal cardiac enzyme level (Acute) Rhabdomyolysis (Acute) - Physical Exam Vitals/I&O's: Vital Signs Temp Pulse Resp BP Pulse Ox 97.8 F 93 18 144/88 H 97 05/24/19 09:05 05/24/19 11:15 05/24/19 13:38 05/24/19 09:19 05/24/19 13:38 Oxygen Flow Rate (L/min) 2 Oxygen Delivery Method Room Air Weight: 154 lb 12.232 oz Body Mass Index (BMI) 21.1 Intake and Output for Last 24 Hours 05/22/19 05/23/19 05/24/19 23:59 23:59 23:59 Intake Total 3406.58 / 3526.58 4104.42 / 4104.42 1092.67 / 1092.67 Output Total 1250 / 1825 1425 / 1425 675 / 675 Balance 2156.58 / 1701.58 2679.42 / 2679.42 417.67 / 417.67 General: Alert, Oriented x3, Cooperative HEENT: Atraumatic, PERRLA, EOMI, Normocephalic Neck: Supple, No JVD, Negative Carotid Bruits Lungs: Clear to auscultation, Diminished Cardiovascular: Regular rate, No murmurs Abdomen: Bowel Sounds Present, Soft, Non Tender Extremities: No edema, Capillary Refill Less than 3 Seconds Skin: No rashes, No breakdown Musculoskeletal: No Tenderness to Palpation of Joints or Extremities Neurological: Cranial nerves II-XII grossly intact Psych/Mental Status: Normal Affect, Appropriate, Alert and oriented to time, place, person, mood and affect Microbiology Past 72 Hours 05/22/19 02:15 Urine, Clean Catch Urine Culture - Final Culture exhibits no growth. 05/22/19 11:52 Swab (Method) Nasal Screen MRSA/MSSA - Final 05/21/19 22:45 Interface Orders Respiratory Panel (PCR) - Final Laboratory Results 05/23/19 06:02: Magnesium 2.1, TSH 0.33 L 05/23/19 17:03: POC Glucose 333 H 05/23/19 21:59: POC Glucose 337 H 05/24/19 05:25: Sodium 142, Potassium 3.6, Chloride 111 H, Carbon Dioxide 24.0, Anion Gap 7, BUN 31 H, Creatinine 1.56 H, Estim Creat Clear Calc 43.13, Est GFR (MDRD) Af Amer 57 L, Est GFR (MDRD) Non-Af 47 L, BUN/Creatinine Ratio 19.9, Glucose 172 H, Calcium 8.3 L, Total Creatine Kinase 245, Triglycerides 98, Cholesterol 140, LDL Cholesterol 79, VLDL Cholesterol 20, HDL Cholesterol 41 05/24/19 05:25: Free T4 0.86 05/24/19 06:32: POC Glucose 151 H 05/24/19 11:36: POC Glucose 161 H Current Medications Acetaminophen (Tylenol) 650 mg PO Q6H PRN PRN PRN Reason: Pain Score 1-3/Temp > 100.7 F Last Admin: 05/22/19 12:38 Dose: 650 mg Documented by: Al Hydroxide/Mg Hydroxide (Mylanta Ii) 30 ml PO Q6H PRN PRN PRN Reason: Gastric Burning Albuterol Sulfate (Ventolin Aerosols) 2.5 mg INHALATION Q2H PRN PRN PRN Reason: SOB/Wheezing Last Admin: 05/24/19 00:56 Dose: 2.5 mg Documented by: Albuterol/Ipratropium (Duoneb) 3 ml INHALATION Q4HWA.RT [facility] Last Admin: 05/24/19 10:11 Dose: 3 ml Documented by: Amlodipine Besylate (Norvasc) 2.5 mg PO DAILY [facility] Last Admin: 05/24/19 11:42 Dose: 2.5 mg Documented by: Aspirin (Aspirin, Baby) 81 mg PO DAILY@0800 [facility] Last Admin: 05/24/19 09:21 Dose: 81 mg Documented by: Dextrose (D50w Syringe) 0 gm IV X1 PRN; Protocol PRN Reason: Hypoglycemia Glucagon () 1 mg IM .X1 PRN PRN Reason: Hypoglycemia Heparin Sodium (Porcine) (Heparin Na) 5,000 unit SC Q8 [facility] Last Admin: 05/24/19 05:23 Dose: 5,000 unit Documented by: Sodium Chloride () 250 mls @ 15 mls/hr IV .[id number] PRN PRN Reason: Saline Flush Last Infusion: 05/24/19 04:05 Dose: 0 mls/hr Documented by: Piperacillin Sod/Tazobactam (Sod 3.375 gm/ Sodium Chloride) 50 mls @ 12.5 mls/hr IV Q8 [facility] Last Infusion: 05/24/19 09:23 Dose: Infused Documented by: Sodium Chloride () 1,000 mls @ 100 mls/hr IV .Q10H [facility] Last Admin: 05/24/19 05:28 Dose: 100 mls/hr Documented by: Insulin Human Lispro (Humalog Kwikpen (Bkc)) 0 unit SC ACHS [facility]; Protocol Last Admin: 05/24/19 11:42 Dose: 1 u Documented by: Levothyroxine Sodium (Synthroid) 112 mcg PO DAILY@0600 [facility] Last Admin: 05/24/19 05:23 Dose: 112 mcg Documented by: Lorazepam (Ativan) 0.5 mg PO QHS PRN PRN PRN Reason: INSOMNIA Magnesium Hydroxide (Milk Of Magnesia) 30 ml PO DAILY PRN PRN PRN Reason: Constipation Melatonin (Melatonin) 3 mg PO QHS [facility] Last Admin: 05/23/19 22:11 Dose: 3 mg Documented by: Metoprolol Tartrate (Lopressor (Beta Perry)) 50 mg PO BID [facility] Last Admin: 05/24/19 09:19 Dose: 50 mg Documented by: Nitroglycerin (Nitrostat) 0.4 mg SUBLINGUAL Q5M PRN PRN Reason: CARDIAC/CHEST PAIN Nutritional Formula (Lactose Free) (Glucerna Shake) 120 ml PO 4X/DAY [facility] Last Admin: 05/24/19 09:18 Dose: 120 ml Documented by: Nystatin (Nystatin) 500,000 unit PO 4X/DAY [facility] Pantoprazole Sodium (Protonix) 40 mg PO DAILY [facility] Last Admin: 05/24/19 09:15 Dose: 40 mg Documented by: Polysaccharide [facility] ([facility]rex 150) [facility] Last Admin: 05/24/19 09:15 Dose: 150 mg Documented by: Prednisone () 40 mg PO DAILY@0800 [facility] Last Admin: 05/24/19 09:16 Dose: 40 mg Documented by: Sertraline HCl (Zoloft) 50 mg PO DAILY [facility] Last Admin: 05/24/19 09:15 Dose: 50 mg Documented by: Sodium Chloride () 5 - 15 ml IV UD PRN PRN Reason: SALINE FLUSH Last Admin: 05/23/19 06:25 Dose: 10 ml Documented by: Sucralfate (Carafate) 1 gm PO 1HR_ACHS K[facility]IN Last Admin: 05/24/19 11:42 Dose: 1 gm Documented by: Throat Lozenges (Cepacol Sore Throat Lozenge) 1 lozenge MUCOUS MEM Q2H PRN PRN PRN Reason: Sore Throat/Cough Tramadol HCl (Ultram) 50 mg PO Q12H PRN PRN PRN Reason: Pain Score 6-1010 Last Admin: 05/22/19 17:15 Dose: 50 mg Documented by: Trazodone HCl (Desyrel) 50 mg PO QHS [facility] Last Admin: 05/23/19 22:10 Dose: 50 mg Documented by: Medical Necessity - Tobacco Use Smoking Status: Former smoker Tobacco Use: Non-smoker Assessment/Plan All Active Problems Atrial fibrillation (Acute) Abnormal cardiac enzyme level (Acute) Rhabdomyolysis (Acute) Sepsis (Acute) Pneumonia (Acute) CORNELL (acute kidney injury) (Acute) 1. Acute bronchitis - MRSA negative, stop doxy continue zosyn, plan to transition to augmentin when ready. With his confusion and laying around for stays im concerned he could have aspirated. Resp panel negative. Blood cultures pending. Leukocytosis likely from recent steroid use. No fever. 2. Acute toxic metabolic encephalopathy - improving. I suspect much of his confusion was due to polypharmacy as he was on xanax, ativan, trazodone, meletonin, ultram, zoloft. Also metabolic due to CORNELL, rhabdo, bronchitis, hypot ension, and COPD exacerbation. Serial CT brains were performed as there was a report of associated Left arm weakness. These were both negative. He cannot have an MRI due to severe claustrophobia. -I discussed with his son and daughter his polypharmacy. He has underlying psychiatric issues for at least 30 years and continuously has drug seeking behavior. For example when he lived with them they had to lock up his prescriptions. If he got hold of his meds he would take a whole bottle at a time. He has had mutliple admission to multiple psychiatric facilities in the past. -The patient needs to be weaned off of all addicting substances. I have further decreased his ativan. 3. Acute COPD exacerbation -continue prednisone taper, aerosols, incentive spirometer, Pep therapy. He denies using home oxygen. 4. Acute rhabdo and CORNELL - resolved. 5. Spiculated lung mass-pulmonology following. Bronchoscopy and biopsy performed at [facility]. D/w Dr. Fleming - unlikely to be cancer due to recent rapid development with normal recent CT chest. Follow up in office. 6. Chronic adrenal insufficiency - no hydrocortisone in his home meds. hydrocortisone DCd. [facility]. Cortisol level was decreased at 0.60 november of 2018. 7. Afib on the heart monitor. metoprolol increased to 50. Cardiology consulted. Echo showing EF 5%, RVSP 44 mmHg, normal LV size and function . May need OAC however risky with anemia and hx PUD, debility. Check hemoccult. TSH low but t4 normal. mag normal. 8. HTN - now pulse and BP trending up, initially had hypotension but this is now recovered, I suspect hypotension is was due to polypharmacy, will cautiously add back in home meds. 9. Normocytic anemia-with iron deficiency. PO iron started. Check hemoccult. Hx PUD. Denies black stools. TSH pending. 10. Indeterminate troponin-likely false elevation secondary to rhabdo. No chest pain, no EKG changes, sinus arrhythmia on telemetry 11. GERD/PUD - restart Carafate and PPI. May need repeat EGD as o/p. No black stools reported. Check Hemoccult. 12. Acute urinary retention-Flomax started. Weber catheter in place. Voiding trial [facility] to [facility]. 13. Pressure ulcers present on admission-wound care ordered 14. Depression / Anxiety / Unclear psychiatric illness / Insomnia - as noted per #2, polypharmacy. Continue zoloft, melatonin, trazodone at lower dose. Ativan at night decreased. Needs completely weaned off and he needs to stay off of controlled substances 15. Suspected dementia - the family reports ongoing memory problems and confusion especially at night. This further adds weight to the need to discontinue as much of his sedating and anticholinergic medication as possible. He likely will need placed in an ECF and or dementia unit. He cannot manage his own medications. DVT prophylaxis: Heparin. [facility]: [facility]. Again, he should not resume the medications he was on prior to coming in. He needs weaned off tramadol and ativan. He would benefit from an outpatient psychiatric referral at discharge. This patient was seen by Clint Limon PA-C under the supervision of Doctor Jamie. <Dhruv Ayala - Last Filed: 05/24/19 16:00> Subjective: Patient sitting comfortable in the recliner. No shortness of breath. Patient has some cough. Patient also has history of oropharyngeal candidiasis and states he feels like discomfort in swallowing. Patient was also educated about psychiatric medications including benzodiazepines, SSRIs and trazodone. - Physical Exam Vitals/I&O's: Vital Signs Temp Pulse Resp BP Pulse Ox 98.8 F 106 H 17 178/94 H 98 05/24/19 15:05 05/24/19 15:05 05/24/19 15:05 05/24/19 15:05 05/24/19 15:05 Oxygen Flow Rate (L/min) 2 Oxygen Delivery Method Room Air Weight: 154 lb 12.232 oz Body Mass Index (BMI) 21.1 Intake and Output for Last 24 Hours 05/22/19 05/23/19 05/24/19 23:59 23:59 23:59 Intake Total 3406.58 / 3526.58 4104.42 / 4104.42 2054.34 / 2054.34 Output Total 1250 / 1825 1425 / 1425 675 / 675 Balance 2156.58 / 1701.58 2679.42 / 2679.42 1379.34 / 1379.34 General: Alert, Oriented x3, Cooperative HEENT: Atraumatic, PERRLA, EOMI, Normocephalic, - - No whitish patches seen over oropharyngeal region including back of tongue. Neck: Supple, No JVD, Negative Carotid Bruits Lungs: Diminished, Rhonchi, Wheezes Cardiovascular: Regular rate, Regular Rhythm, Normal S1, Normal S2, No murmurs Abdomen: Bowel Sounds Present, Soft, Non Tender, Non-Distended Extremities: No edema, Capillary Refill Less than 3 Seconds Skin: No rashes, No breakdown Musculoskeletal: No Tenderness to Palpation of Joints or Extremities, Arthritic Changes Neurological: Cranial nerves II-XII grossly intact, Deep Tendon Reflexes 2+/4 and Symmetrical, Neuro grossly intact Psych/Mental Status: Normal Affect, Appropriate Microbiology Past 72 Hours 05/21/19 17:30 Blood Culture (Wb) - Anticubital Left Blood Culture - Preliminary No growth in 48 hours. 05/21/19 16:30 Blood Culture (Wb) - Anticubital Left Blood Culture - Preliminary No growth in 48 hours. 05/22/19 02:15 Urine, Clean Catch Urine Culture - Final Culture exhibits no growth. 05/22/19 11:52 Swab (Method) Nasal Screen MRSA/MSSA - Final 05/21/19 22:45 Interface Orders Respiratory Panel (PCR) - Final Laboratory Results 05/23/19 17:03: POC Glucose 333 H 05/23/19 21:59: POC Glucose 337 H 05/24/19 05:25: Sodium 142, Potassium 3.6, Chloride 111 H, Carbon Dioxide 24.0, Anion Gap 7, BUN 31 H, Creatinine 1.56 H, Estim Creat Clear Calc 43.13, Est GFR (MDRD) Af Amer 57 L, Est GFR (MDRD) Non-Af 47 L, BUN/Creatinine Ratio 19.9, Glucose 172 H, Calcium 8.3 L, Total Creatine Kinase 245, Triglycerides 98, Cholesterol 140, LDL Cholesterol 79, VLDL Cholesterol 20, HDL Cholesterol 41 05/24/19 05:25: Free T4 0.86 05/24/19 06:32: POC Glucose 151 H 05/24/19 11:36: POC Glucose 161 H Current Medications Acetaminophen (Tylenol) 650 mg PO Q6H PRN PRN PRN Reason: Pain Score 1-3/Temp > 100.7 F Last Admin: 05/22/19 12:38 Dose: 650 mg Documented by: Al Hydroxide/Mg Hydroxide (Mylanta Ii) 30 ml PO Q6H PRN PRN PRN Reason: Gastric Burning Albuterol Sulfate (Ventolin Aerosols) 2.5 mg INHALATION Q2H PRN PRN PRN Reason: SOB/Wheezing Last Admin: 05/24/19 00:56 Dose: 2.5 mg Documented by: Albuterol/Ipratropium (Duoneb) 3 ml INHALATION Q4HWA.RT [facility] Last Admin: 05/24/19 14:20 Dose: 3 ml Documented by: Amlodipine Besylate (Norvasc) 2.5 mg PO DAILY [facility] Last Admin: 05/24/19 11:42 Dose: 2.5 mg Documented by: Aspirin (Aspirin, Baby) 81 mg PO DAILY@0800 [facility] Last Admin: 05/24/19 09:21 Dose: 81 mg Documented by: Dextrose (D50w Syringe) 0 gm IV X1 PRN; Protocol PRN Reason: Hypoglycemia Glucagon () 1 mg IM .X1 PRN PRN Reason: Hypoglycemia Heparin Sodium (Porcine) (Heparin Na) 5,000 unit SC Q8 [facility] Last Admin: 05/24/19 14:42 Dose: 5,000 unit Documented by: Sodium Chloride () 250 mls @ 15 mls/hr IV .[id number] PRN PRN Reason: Saline Flush Last Infusion: 05/24/19 04:05 Dose: 0 mls/hr Documented by: Piperacillin Sod/Tazobactam (Sod 3.375 gm/ Sodium Chloride) 50 mls @ 12.5 mls/hr IV Q8 [facility] Last Admin: 05/24/19 14:05 Dose: 12.5 mls/hr Documented by: Insulin Human Lispro (Humalog Kwikpen (Bkc)) 0 unit SC ACHS [facility]; Protocol Last Admin: 05/24/19 11:42 Dose: 1 u Documented by: Levothyroxine Sodium (Synthroid) 112 mcg PO DAILY@0600 [facility] Last Admin: 05/24/19 05:23 Dose: 112 mcg Documented by: Lorazepam (Ativan) 0.5 mg PO QHS PRN PRN PRN Reason: INSOMNIA Magnesium Hydroxide (Milk Of Magnesia) 30 ml PO DAILY PRN PRN PRN Reason: Constipation Melatonin (Melatonin) 3 mg PO QHS [facility] Last Admin: 05/23/19 22:11 Dose: 3 mg Documented by: Metoprolol Tartrate (Lopressor (Beta Perry)) 50 mg PO BID [facility] Last Admin: 05/24/19 09:19 Dose: 50 mg Documented by: Nitroglycerin (Nitrostat) 0.4 mg SUBLINGUAL Q5M PRN PRN Reason: CARDIAC/CHEST PAIN Nutritional Formula (Lactose Free) (Glucerna Shake) 120 ml PO 4X/DAY [facility] Last Admin: 05/24/19 14:00 Dose: 120 ml Documented by: Nystatin (Nystatin) 500,000 unit PO 4X/DAY [facility] Last Admin: 05/24/19 15:33 Dose: 500,000 unit Documented by: Pantoprazole Sodium (Protonix) 40 mg PO DAILY [facility] Last Admin: 05/24/19 09:15 Dose: 40 mg Documented by: Polysaccharide Iron Complex (Ferrex 150) 150 mg PO DAILYCM [facility] Last Admin: 05/24/19 09:15 Dose: 150 mg Documented by: Prednisone () 40 mg PO DAILY@0800 [facility] Last Admin: 05/24/19 09:16 Dose: 40 mg Documented by: Sertraline HCl (Zoloft) 50 mg PO DAILY [facility] Last Admin: 05/24/19 09:15 Dose: 50 mg Documented by: Sodium Chloride () 5 - 15 ml IV UD PRN PRN Reason: SALINE FLUSH Last Admin: 05/23/19 06:25 Dose: 10 ml Documented by: Sucralfate (Carafate) 1 gm PO 1HR_ACHS [facility] Last Admin: 05/24/19 11:42 Dose: 1 gm Documented by: Throat Lozenges (Cepacol Sore Throat Lozenge) 1 lozenge MUCOUS MEM Q2H PRN PRN PRN Reason: Sore Throat/Cough Tramadol HCl (Ultram) 50 mg PO Q12H PRN PRN PRN Reason: Pain Score 6-10/10 Last Admin: 05/22/19 17:15 Dose: 50 mg Documented by: Trazodone HCl (Desyrel) 50 mg PO QHS [facility] Last Admin: 05/23/19 22:10 Dose: 50 mg Documented by: Assessment/Plan This patient was seen in conjunction with Clint MUSTAFA. I have independently interviewed and examined the patient and reviewed pertinent history, examination findings, laboratory and plan of management. I have reviewed the note and agree with the documented findings with the few additional points. In brief, patient is 69-year-old gentleman with history of severe COPD as per PFT in 2017 was admitted with shortness of breath, chest congestion and cough. Patient was found on the floor as per the neighbor therefore unwitnessed fall prior to hospitalization. Patient also has dementia. In ED, chest x-ray shows no focal airspace disease. CT chest was done and shows 20 x 8.8 nodule in the right upper lobe anteriorly. Emphysematous changes were noted. Overall, assessment is consistent with COPD exacerbation with acute bronchitis. Blood cultures x2 are pending. Respiratory panel negative. Urine culture negative. Nasal screen MRSA is pending. Patient has history of MRSA. [employer] Worker is been consulted and consult note appreciated. He advised CT-guided lung biopsy. On IV Solu-Medrol, antibiotics, bronchodilator and oxygen. Continue bronchopulmonary hygiene, chest physiotherapy and incentive spirometry. CT scan from [facility] received and reviewed. First CT scan in April 19, 2019 shows noncalcified nodule in left upper lobe unchanged. Diffuse emphysematous changes noted. Second CT scan on May 10, 2019 reviewed. New infiltrate in right upper lobe from pneumonia. Few mildly enlarged mediastinal lymph nodes most likely reactive. Right upper lobe nodule not previously seen in CT chest in 2017 therefore looks recent. Overall it was decided to repeat CT in 6 to 8 weeks in pulmonary clinic and decide on biopsy after that. Patient found A. fib on the monitor. I agreed that patient has risk of anticoagulation because of fall fall and with history of anemia, polypharmacy and altered mental status and needs further discussion with family by PCP. Patient also has toxic encephalopathy from polypharmacy. Patient was on lorazepam, Xanax, tramadol, sertraline, and trazodone 150 mg nightly. Xanax discontinued. Trazodone decreased to 50 mg daily. Patient intermittent tachycardia and hypertension may be related to neurotropic medication withdrawal Patient also has acute kidney injury and acute rhabdomyolysis secondary to fall and found on bed. Continue IV fluid. CK is trending down. Mild troponin elevation secondary to acute rhabdomyolysis. Patient does not have chest pain. BUN/creatinine is getting better and improved. Iron work-up shows anemia of chronic disease, ferritin 1623, iron saturation 13% iron and TIBC low. Patient is not on iron supplement. Decubitus/pressure ulcer on left greater trochanter: Wound care. Other chronic comorbidities as mentioned above. Discharge plan to TCU. Code Visit Inpatient E&M: 79489 Subs Hosp L3
--- NOTE | 2019-05-24 14:01 | CASEMGMT ---
KAE received a call from [employer] and patient was approved. KAE notified physician, patient, his son, Nathan and daughter, Gale. KAE also spoke with Gale regarding transportation to [place]. She said she would be able to transport him. She asked that someone call her if she is not here already. KAE also called patient's son per his request. He thanked KAE for the update earlier when he was at [facility]. He told SW that patient has been institutionalized for many years. Patient has Schizoaffective Disorder. He said if he ends up needing to stay at the [facility] he may not be a very nice person. KAE told him to just take one day at a time for right now. The nursing homes have plan of care meetings which family can attend to discuss a plan for care after d[facility]c from the [facility]. He thanked KAE for calling him back. Marlen WEN
[2019-05-24] MEDS: NYSTATIN 500,000 UNIT/5 ML UDC 500000 UNIT PO ×3 (15:33→21:05)
--- NOTE | 2019-05-24 15:38 | NURSING ---
Read and reviewed SN documentation
--- NOTE | 2019-05-24 15:39 | NURSING ---
Read and reviewed SN documentation
[2019-05-24] MEDS: traMADol 50 MG Tablet PO (17:23)
[2019-05-24 17:30] LABS: Bedside Glucose 155 mg/dL (70-110)
[2019-05-24] MEDS: Acetaminophen 325 MG Tablet 650 MG PO (20:09)
--- NOTE | 2019-05-24 20:15 | NURSING ---
Care of this pt. being handed over to Alberta Remy RN at this time.
[2019-05-24] MEDS: traZODone 50 MG Tablet PO (21:04)
[2019-05-24] MEDS: MELATONIN 3 MG TABLET PO (21:05)
[2019-05-24 21:15] LABS: Bedside Glucose 212 mg/dL (70-110)
[2019-05-24] MEDS: 0.9% Saline Lock 10 ML Syringe IV (22:15)
[2019-05-25] VITALS (9 sets, daily range): BP systolic 158–187; BP diastolic 89–93; PULSE 71–100; RESP 16–26; TEMP 36.8–37.2; O2SAT 96–98
[2019-05-25] MEDS: Ipratropium/Albuterol Sulfate 3 ML AMPUL.NEB INHALATION ×4 (03:00→15:08)
[2019-05-25 06:33] LABS: Anion Gap 8 (5-15); BUN 25 mg/dL (7-18); BUN/Creat Ratio 18.4 RATIO (10-20); Calcium,Total 8.3 mg/dL (8.5-10.1); Chloride 110 mmol/L (98-107); Creatinine, Serum 1.36 mg/dL (0.70-1.30); EST Glomerular Filtration Rate 55 mL/min (>60); Est Glom Filt Rate - Afr Amer 66 mL/min (>60); Estimated Creatinine Clearance 48.55 ml/min; Glucose 103 mg/dL (74-106); Potassium 3.2 mmol/L (3.5-5.1); Sodium Level 142 mmol/L (136-145)
[2019-05-25] MEDS: Levothyroxine 112 MCG Tablet PO (06:40)
[2019-05-25] MEDS: 0.9% Saline Lock 10 ML Syringe IV (06:40)
[2019-05-25] MEDS: Heparin Injection (Vial) 5,000 UNIT/ML VIAL 5000 UNIT SC ×2 (06:40→14:02)
[2019-05-25] MEDS: Sucralfate 1 GM Tablet PO ×2 (06:40→12:30)
[2019-05-25 06:56] LABS: Bedside Glucose 138 mg/dL (70-110)
--- NOTE | 2019-05-25 08:14 | PN.CARD_ITS ---
<Booker Reagan H - Last Filed: 05/25/19 08:40> Subjectve: Patient seen and evaluated. He denies any chest pain or shortness of breath overnight. He does acknowledge feeling generally weak and headache this morning. He denies any rapid or irregular heartbeat sensation. He denies any lightheadedness or dizziness. He expresses concern regarding difficulty sleeping. Objective: Vital Signs Temp Pulse Resp BP Pulse Ox 98.5 F 100 16 158/89 H 98 05/25/19 04:15 05/25/19 07:18 05/25/19 07:08 05/25/19 04:15 05/25/19 07:08 Oxygen Flow Rate (L/min) 2 Oxygen Delivery Method Room Air Weight: 151 lb 14.376 oz Body Mass Index (BMI) 21.1 Intake and Output for Last 24 Hours 05/23/19 05/24/19 05/25/19 23:59 23:59 23:59 Intake Total 4104.42 / 4104.42 2704.34 / 2704.34 290 / 290 Output Total 1425 / 1425 1525 / 1525 800 / 800 Balance 2679.42 / 2679.42 1179.34 / 1179.34 -510 / -510 General: Healthy Appearing, Awake, Alert, Oriented x 3, Cooperative Oral: Moist Mucosa Neck: No JVD Lungs: Diminished Kobe Bases Cardiovascular: Regular Rhythm, Normal S1, Normal S2, No Murmurs, No Rubs, No Gallops Vascular: No Carotid Bruits Extremities: No Cyanosis, No Clubbing, No edema, Normal Capillary Refill Neurological: No Focal Motor or Sensory Deficit Psych/Mental Status: Appropriate 05/25/19 05:50: Sodium 142, Potassium 3.2 L, Chloride 110 H, Carbon Dioxide 24.0, Anion Gap 8, BUN 25 H, Creatinine 1.36 H, Est GFR (MDRD) Af Amer 66, Est GFR (MDRD) Non-Af 55 L, BUN/Creatinine Ratio 18.4, Glucose 103, Calcium 8.3 L Rhythm: EKG: ECHO: 08/23/2018 Interpretation Summary The study was technically difficult. Based upon the 2D echocardiographic images obtained there appears to be grossly normal left ventricular size, wall motion, and systolic function peer The estimated ejection fraction is 65 %. Trivial mitral valve insufficiency. Trivial tricuspid valve insufficiency. Right ventricular systolic pressure estimated to be 44 mmHg. There is evidence of diastolic dysfunction. Stress Test: Cardiac Cath: PCI: CT Surgery: Holter monitor: EPS: PPM: CXR: Chest CT Scan: Medical Necessity - Tobacco Use Smoking Status: Former smoker Tobacco Use: Non-smoker Assessment/Plan 1. Atrial fibrillation with rapid ventricular response The patient appears to have a history of a tachycardia for which she had to be shocked in the past. This does raise concern the patient has had atrial fibrillation in the past. His recurrent event may be compatible to a combination of his age, history of atrial fibrillation, superimposed upon his underlying pulmonary disease process, infectious disease process, etc. At the moment he has been placed on rate control therapy with beta-blockers. He has had return to sinus rhythm. He has been on anticoagulant therapy with subcutaneous heparin. It is unclear as to whether he is a patient who the risk benefit ratio is in his favor with respect to the potential of long-term oral systemic anti-coagulant therapy based upon his recent report of polypharmacy use, reported mental status changes, and his unknown pulmonary disease process/lung mass lesion results, etc . Patient is currently in sinus rhythm/sinus tachycardia. His beta- miguel angel/metoprolol tartrate has been increased to 50 mg p.o. twice daily to assist with rate control. His potassium is noted to be reduced this morning. He will be given potassium chloride 40 mEq p.o. He is currently on subcutaneous heparin for anticoagulation. His pain may be contributing factor to his elevated heart rate and higher blood pressure. His echocardiogram on 05/23/2019 showed preserved ejection fraction of 65%, normal left and right atrial size, RVSP of 44 mmHg, and no major valve abnormalities that were visualized. 2. Abnormal cardiac enzymes He has had markedly elevated CPK levels and indeterminate troponin I levels. The pattern would appear compatible with a history of underlying rhabdomyolysis based upon his history of prolonged supine status, etc. However, as noted above, additional cardiovascular disease cannot necessarily be excluded. Thus he may need evaluation with noninvasive/invasive studies as deemed appropriate. In the meantime he should continue medical management for concerns of rhabdomyolysis as well as the possibility of underlying cardiovascular disease as deemed appropriate. However, additional evaluation, may depend upon when his pulmonary status allows. This can be addressed on an outpatient basis once fully recovered. 3. Rhabdomyolysis His history does suggest rhabdomyolysis. His markedly elevated CPK levels and indeterminate troponin I levels appear compatible with finding of rhabdomyolysis. He will continue evaluation care per internal medicine. 4. Sepsis There has been concerns of underlying infectious disease related issues and a sepsis syndrome. He is continuing evaluation care per internal medicine. 5. Pneumonia He states his big concern recently has been his pulmonary disease process with recurrent pneumonia. He is continuing evaluation care per internal medicine. 6. COPD He does have a history of COPD. He states he has been followed by his primary care physician for this. He will need continued evaluation care which may include pulmonology input over time based upon his underlying pulmonary disease process and the concerns of her recent pulmonary nodule status post biopsy. The [facility] staff is attempting to retrieve his recent pulmonary biopsy report/findings for continuity of care purposes. 7. Adrenal insufficiency The patient reportedly has a history of adrenal insufficiency. 8. Hypertension Patient's amlodipine has been increased to 5 mg p.o. daily. Hopefully, this will assist with blood pressure control. This will be monitored and medication will be adjusted as needed/indicated. He will need continued medical management and support as deemed appropriate as he goes through his acute process. Patient's case was discussed with Dr. Rodriguez, who will personally evaluate patient as well. Thank you for allowing us to participate in the patients plan of care, if you h ave any questions please do not hesitate to call. This note was generated using a voice recognition system and there may be incorrect words, spelling or punctuation that were not noted when reviewing the office note prior to saving. <Antony Rodriguez - Last Filed: 05/25/19 12:55> Objective: Vital Signs Temp Pulse Resp BP Pulse Ox 98.3 F 71 16 175/93 H 97 05/25/19 12:27 05/25/19 12:27 05/25/19 12:27 05/25/19 12:27 05/25/19 12:27 Oxygen Flow Rate (L/min) 2 Oxygen Delivery Method Room Air Weight: 151 lb 14.376 oz Body Mass Index (BMI) 21.1 Intake and Output for Last 24 Hours 05/23/19 05/24/19 05/25/19 23:59 23:59 23:59 Intake Total 4104.42 / 4104.42 2704.34 / 2704.34 530 / 530 Output Total 1425 / 1425 1525 / 1525 1100 / 1100 Balance 2679.42 / 2679.42 1179.34 / 1179.34 -570 / -570 05/25/19 05:50: Sodium 142, Potassium 3.2 L, Chloride 110 H, Carbon Dioxide 24.0, Anion Gap 8, BUN 25 H, Creatinine 1.36 H, Est GFR (MDRD) Af Amer 66, Est GFR (MDRD) Non-Af 55 L, BUN/Creatinine Ratio 18.4, Glucose 103, Calcium 8.3 L Rhythm: EKG: ECHO: Stress Test: Cardiac Cath: PCI: CT Surgery: Holter monitor: EPS: PPM: CXR: Chest CT Scan: Assessment/Plan Addendum: Date: 05-25-19 The patient was independently interviewed/examined. The patient appears to be resting comfortably at this time with no new acute symptoms with respect to worsening chest discomfort, dyspnea, or palpitations. He has been undergoing evaluation care per internal medicine and they will ge neral surgery for concerns of decreased H&H. The patient has remained in sinus rhythm. His pulmonary examination demonstrates his breath sounds to be noted for intermittent inspiratory/expiratory wheezing. His cardiovascular exam demonstrates a regular rhythm with normal S1 and S2. His lower extremities demonstrate no ongoing lower extremity peripheral pitting edema. At the present time he will continue, while he is at [facility], cardiac rhythm monitoring and adjustment of his medications with respect to concerns of his atrial dysrhythmia as deemed appropriate. Again he is on rate control therapy. Consideration will have to be given as to whether or not he is a candidate for long-term oral systemic anticoagulant therapy based upon concerns of his report of polypharmacy and mental status changes, his pulmonary disease process, and now potentially an underlying gastrointestinal disease process. His medications of also been adjusted to assist with his blood pressure control. He appears to be recuperating from concerns of his rhabdomyolysis. His renal function is improving. Again with respect to his abnormal cardiac enzymes at the moment this may be related to his rhabdomyolysis. He has had no other acute cardiovascular symptoms and/or objective findings. He can be considered for future noninvasive or invasive cardiovascular evaluation as deemed appropriate as he stabilizes from his other known cardiovascular issues. He continues pulmonary evaluation care with input from Dr. Fleming from pulmonology. The patient's case was discussed and reviewed with Dr. Ayala and Dr. Fleming. The patient's case was also discussed and reviewed with Booker Reagan CNP. Thank you for allowing me to participate in the care of your patient. This note was generated using a voice recognition system and there may be incorrect words, spelling or punctuation that were not noted when reviewing the office note prior to saving.
[2019-05-25] MEDS: Metoprolol Tartrate 50 MG Tablet PO (09:15)
[2019-05-25] MEDS: Aspirin 81 MG TAB.CHEW PO (09:16)
[2019-05-25] MEDS: predniSONE 20 MG Tablet 40 MG PO (09:16)
[2019-05-25] MEDS: Pantoprazole Sodium 40 MG Tablet PO (09:17)
[2019-05-25] MEDS: Iron Polysaccharide Complex 150 MG CAPSULE PO (09:18)
[2019-05-25] MEDS: Sertraline 50 MG Tablet PO (09:18)
[2019-05-25] MEDS: NYSTATIN 500,000 UNIT/5 ML UDC 500000 UNIT PO ×2 (09:18→14:02)
[2019-05-25] MEDS: amLODIPine 5 MG Tablet PO (09:20)
--- NOTE | 2019-05-25 09:54 | PN_ITS ---
Patient Problems: Active and Suspected Problems Atrial fibrillation (Acute) Abnormal cardiac enzyme level (Acute) Rhabdomyolysis (Acute) Subjective: Complaint of liquid bowel movement since yesterday about 2-3 times yesterday and possible one today. Complain of right-sided abdominal pain, dull ache pain. Patient denies any obvious macroscopic blood in the stool but the stool for occult blood positive. Fever or chills. Discussed with surgeon Dr. Soriano. Agree with Protonix and Carafate. Stool for C. difficile ordered. He would like to scope him as an outpatient. Vitals/I&O's: Vital Signs Temp Pulse Resp BP Pulse Ox 99 F 100 18 187/93 H 98 05/25/19 09:06 05/25/19 09:15 05/25/19 09:06 05/25/19 09:06 05/25/19 09:06 Oxygen Flow Rate (L/min) 2 Oxygen Delivery Method Room Air Weight: 151 lb 14.376 oz Body Mass Index (BMI) 21.1 Intake and Output for Last 24 Hours 05/23/19 05/24/19 05/25/19 23:59 23:59 23:59 Intake Total 4104.42 / 4104.42 2704.34 / 2704.34 290 / 290 Output Total 1425 / 1425 1525 / 1525 800 / 800 Balance 2679.42 / 2679.42 1179.34 / 1179.34 -510 / -510 Microbiology Past 72 Hours 05/25/19 02:50 Stool Stool Occult Blood (FARTUN) - Final Occult Blood Positive 05/21/19 17:30 Blood Culture (Wb) - Anticubital Left Blood Culture - Preliminary No growth in 48 hours. 05/21/19 16:30 Blood Culture (Wb) - Anticubital Left Blood Culture - Preliminary No growth in 48 hours. 05/22/19 02:15 Urine, Clean Catch Urine Culture - Final Culture exhibits no growth. 05/22/19 11:52 Swab (Method) Nasal Screen MRSA/MSSA - Final 05/21/19 22:45 Interface Orders Respiratory Panel (PCR) - Final Laboratory Results 05/24/19 11:36: POC Glucose 161 H 05/24/19 17:09: POC Glucose 155 H 05/24/19 21:03: POC Glucose 212 H 05/25/19 05:50: Sodium 142, Potassium 3.2 L, Chloride 110 H, Carbon Dioxide 24.0, Anion Gap 8, BUN 25 H, Creatinine 1.36 H, Estim Creat Clear Calc 48.55, Est GFR (MDRD) Af Amer 66, Est GFR (MDRD) Non-Af 55 L, BUN/Creatinine Ratio 18.4, Glucose 103, Calcium 8.3 L 05/25/19 06:38: POC Glucose 138 H Current Medications Acetaminophen (Tylenol) 650 mg PO Q6H PRN PRN PRN Reason: Pain Score 1-3/Temp > 100.7 F Last Admin: 05/24/19 20:09 Dose: 650 mg Documented by: Al Hydroxide/Mg Hydroxide (Mylanta Ii) 30 ml PO Q6H PRN PRN PRN Reason: Gastric Burning Albuterol Sulfate (Ventolin Aerosols) 2.5 mg INHALATION Q2H PRN PRN PRN Reason: SOB/Wheezing Last Admin: 05/24/19 00:56 Dose: 2.5 mg Documented by: Albuterol/Ipratropium (Duoneb) 3 ml INHALATION Q4HWA.RT [facility] Last Admin: 05/25/19 07:08 Dose: 3 ml Documented by: Amlodipine Besylate (Norvasc) 5 mg PO DAILY [facility] Last Admin: 05/25/19 09:20 Dose: 5 mg Documented by: Aspirin (Aspirin, Baby) 81 mg PO DAILY@0800 [facility] Last Admin: 05/25/19 09:16 Dose: 81 mg Documented by: Dextrose (D50w Syringe) 0 gm IV X1 PRN; Protocol PRN Reason: Hypoglycemia Glucagon () 1 mg IM .X1 PRN PRN Reason: Hypoglycemia Heparin Sodium (Porcine) (Heparin Na) 5,000 unit SC Q8 [facility] Last Admin: 05/25/19 06:40 Dose: 5,000 unit Documented by: Sodium Chloride () 250 mls @ 15 mls/hr IV .[id number] PRN PRN Reason: Saline Flush Last Infusion: 05/24/19 04:05 Dose: 0 mls/hr Documented by: Piperacillin Sod/Tazobactam (Sod 3.375 gm/ Sodium Chloride) 50 mls @ 12.5 mls/hr IV Q8 [facility] Last Admin: 05/25/19 06:40 Dose: 12.5 mls/hr Documented by: Insulin Human Lispro (Humalog Kwikpen (Bkc)) 0 unit SC [facility]; Protocol Last Admin: 05/25/19 06:39 Dose: Not Given Documented by: Levothyroxine Sodium (Synthroid) 112 mcg PO DAILY@0600 [facility] Last Admin: 05/25/19 06:40 Dose: 112 mcg Documented by: Lorazepam (Ativan) 0.5 mg PO QHS PRN PRN PRN Reason: INSOMNIA Magnesium Hydroxide (Milk Of Magnesia) 30 ml PO DAILY PRN PRN PRN Reason: Constipation Melatonin (Melatonin) 3 mg PO QHS [facility] Last Admin: 05/24/19 21:05 Dose: 3 mg Documented by: Metoprolol Tartrate (Lopressor (Beta Perry)) 50 mg PO BID [facility] Last Admin: 05/25/19 09:15 Dose: 50 mg Documented by: Nitroglycerin (Nitrostat) 0.4 mg SUBLINGUAL Q5M PRN PRN Reason: CARDIAC/CHEST PAIN Nutritional Formula (Lactose Free) (Glucerna Shake) 120 ml PO 4X/DAY [facility] Last Admin: 05/25/19 09:18 Dose: Not Given Documented by: Nystatin (Nystatin) 500,000 unit PO 4X/DAY [facility] Last Admin: 05/25/19 09:18 Dose: 500,000 unit Documented by: Pantoprazole Sodium (Protonix) 40 mg PO BID [facility] Last Admin: 05/25/19 09:17 Dose: 40 mg Documented by: Polysaccharide Iron Complex (Ferrex 150) 150 mg PO DAILYCM [facility] Last Admin: 05/25/19 09:18 Dose: 150 mg Documented by: Prednisone () 40 mg PO DAILY@0800 [facility] Last Admin: 05/25/19 09:16 Dose: 40 mg Documented by: Sertraline HCl (Zoloft) 50 mg PO DAILY [facility] Last Admin: 05/25/19 09:18 Dose: 50 mg Documented by: Sodium Chloride () 5 - 15 ml IV UD PRN PRN Reason: SALINE FLUSH Last Admin: 05/25/19 06:40 Dose: 10 ml Documented by: Sucralfate (Carafate) 1 gm PO 1HR_ACHS [facility] Last Admin: 05/25/19 06:40 Dose: 1 gm Documented by: Throat Lozenges (Cepacol Sore Throat Lozenge) 1 lozenge MUCOUS MEM Q2H PRN PRN PRN Reason: Sore Throat/Cough Tramadol HCl (Ultram) 50 mg PO Q12H PRN PRN PRN Reason: Pain Score 6-10/10 Last Admin: 05/24/19 17:23 Dose: 50 mg Documented by: Trazodone HCl (Desyrel) 50 mg PO QHS [facility] Last Admin: 05/24/19 21:04 Dose: 50 mg Documented by: STROKE Vital Signs/Narrative: Vital Signs Temp Pulse Resp BP Pulse Ox 05/25/19 09:15 100 05/25/19 09:06 99 F 100 18 187/93 H 98 05/25/19 07:18 100 05/25/19 07:08 98 16 98 Medical Necessity - Tobacco Use Smoking Status: Former smoker Tobacco Use: Non-smoker Assessment/Plan All Active Problems Atrial fibrillation (Acute) Abnormal cardiac enzyme level (Acute) Rhabdomyolysis (Acute) Sepsis (Acute) Pneumonia (Acute) CORNELL (acute kidney injury) (Acute)
--- NOTE | 2019-05-25 10:07 | PN_ITS ---
Subjective: The patient was seen and examined at the bedside this morning. Events from the last 24 hours have been reviewed. The patient is currently afebrile, hemodynamically stable and maintaining appropriate oxygen saturations on room air. Objective: The patient's most recent lab work, culture data and imaging studies have all been personally reviewed. - Physical Exam Vitals/I&O's: Vital Signs Temp Pulse Resp BP Pulse Ox 99 F 100 18 187/93 H 98 05/25/19 09:06 05/25/19 09:15 05/25/19 09:06 05/25/19 09:06 05/25/19 09:06 Oxygen Flow Rate (L/min) 2 Oxygen Delivery Method Room Air Weight: 151 lb 14.376 oz Body Mass Index (BMI) 21.1 Intake and Output for Last 24 Hours 05/23/19 05/24/19 05/25/19 23:59 23:59 23:59 Intake Total 4104.42 / 4104.42 2704.34 / 2704.34 290 / 290 Output Total 1425 / 1425 1525 / 1525 800 / 800 Balance 2679.42 / 2679.42 1179.34 / 1179.34 -510 / -510 General: Alert, Cooperative, No apparent distress HEENT: Atraumatic, PERRLA, Normocephalic Oral: No Gingival or Mucosal Lesions/ Ulcerations Neck: Supple, No Nodes, Trachea Midline Lungs: No rhonchi, No rales, Diminished Cardiovascular: Regular rate, Regular Rhythm, Normal S1, Normal S2, No murmurs Abdomen: Bowel Sounds Present, Soft, Non Tender Extremities: No clubbing, No cyanosis, No edema Skin: No breakdown Musculoskeletal: No Tenderness to Palpation of Joints or Extremities Lymphatic: No Cervical, Supraclavicular, or Inguinal Adenopathy Neurological: Neuro grossly intact Psych/Mental Status: Normal Affect, Appropriate Microbiology Past 72 Hours 05/25/19 02:50 Stool Stool Occult Blood (FARTUN) - Final Occult Blood Positive 05/21/19 17:30 Blood Culture (Wb) - Anticubital Left Blood Culture - Preliminary No growth in 48 hours. 05/21/19 16:30 Blood Culture (Wb) - Anticubital Left Blood Culture - Preliminary No growth in 48 hours. 05/22/19 02:15 Urine, Clean Catch Urine Culture - Final Culture exhibits no growth. 05/22/19 11:52 Swab (Method) Nasal Screen MRSA/MSSA - Final 05/21/19 22:45 Interface Orders Respiratory Panel (PCR) - Final Laboratory Results 05/24/19 11:36: POC Glucose 161 H 05/24/19 17:09: POC Glucose 155 H 05/24/19 21:03: POC Glucose 212 H 05/25/19 05:50: Sodium 142, Potassium 3.2 L, Chloride 110 H, Carbon Dioxide 24.0, Anion Gap 8, BUN 25 H, Creatinine 1.36 H, Estim Creat Clear Calc 48.55, Est GFR (MDRD) Af Amer 66, Est GFR (MDRD) Non-Af 55 L, BUN/Creatinine Ratio 18.4, Glucose 103, Calcium 8.3 L 05/25/19 06:38: POC Glucose 138 H Current Medications Acetaminophen (Tylenol) 650 mg PO Q6H PRN PRN PRN Reason: Pain Score 1-3/Temp > 100.7 F Last Admin: 05/24/19 20:09 Dose: 650 mg Documented by: Al Hydroxide/Mg Hydroxide (Mylanta Ii) 30 ml PO Q6H PRN PRN PRN Reason: Gastric Burning Albuterol Sulfate (Ventolin Aerosols) 2.5 mg INHALATION Q2H PRN PRN PRN Reason: SOB/Wheezing Last Admin: 05/24/19 00:56 Dose: 2.5 mg Documented by: Albuterol/Ipratropium (Duoneb) 3 ml INHALATION Q4HWA.RT [facility] Last Admin: 05/25/19 07:08 Dose: 3 ml Documented by: Amlodipine Besylate (Norvasc) 5 mg PO DAILY [facility] Last Admin: 05/25/19 09:20 Dose: 5 mg Documented by: Aspirin (Aspirin, Baby) 81 mg PO DAILY@0800 [facility] Last Admin: 05/25/19 09:16 Dose: 81 mg Documented by: Dextrose (D50w Syringe) 0 gm IV X1 PRN; Protocol PRN Reason: Hypoglycemia Glucagon () 1 mg IM .X1 PRN PRN Reason: Hypoglycemia Heparin Sodium (Porcine) (Heparin Na) 5,000 unit SC Q8 [facility] Last Admin: 05/25/19 06:40 Dose: 5,000 unit Documented by: Sodium Chloride () 250 mls @ 15 mls/hr IV .[id number] PRN PRN Reason: Saline Flush Last Infusion: 05/24/19 04:05 Dose: 0 mls/hr Documented by: Piperacillin Sod/Tazobactam (Sod 3.375 gm/ Sodium Chloride) 50 mls @ 12.5 mls/hr IV Q8 [facility] Last Admin: 05/25/19 06:40 Dose: 12.5 mls/hr Documented by: Insulin Human Lispro (Humalog Kwikpen (Bkc)) 0 unit SC ACHS [facility]; Protocol Last Admin: 05/25/19 06:39 Dose: Not Given Documented by: Levothyroxine Sodium (Synthroid) 112 mcg PO DAILY@0600 [facility] Last Admin: 05/25/19 06:40 Dose: 112 mcg Documented by: Lorazepam (Ativan) 0.5 mg PO QHS PRN PRN PRN Reason: INSOMNIA Magnesium Hydroxide (Milk Of Magnesia) 30 ml PO DAILY PRN PRN PRN Reason: Constipation Melatonin (Melatonin) 3 mg PO QHS [facility] Last Admin: 05/24/19 21:05 Dose: 3 mg Documented by: Metoprolol Tartrate (Lopressor (Beta Perry)) 50 mg PO BID [facility] Last Admin: 05/25/19 09:15 Dose: 50 mg Documented by: Nitroglycerin (Nitrostat) 0.4 mg SUBLINGUAL Q5M PRN PRN Reason: CARDIAC/CHEST PAIN Nutritional Formula (Lactose Free) (Glucerna Shake) 120 ml PO 4X/DAY [facility] Last Admin: 05/25/19 09:18 Dose: Not Given Documented by: Nystatin (Nystatin) 500,000 unit PO 4X/DAY [facility] Last Admin: 05/25/19 09:18 Dose: 500,000 unit Documented by: Pantoprazole Sodium (Protonix) 40 mg PO BID [facility] Last Admin: 05/25/19 09:17 Dose: 40 mg Documented by: Polysaccharide Iron Complex (Ferrex 150) 150 mg PO DAILYCM [facility] Last Admin: 05/25/19 09:18 Dose: 150 mg Documented by: Prednisone () 40 mg PO DAILY@0800 [facility] Last Admin: 05/25/19 09:16 Dose: 40 mg Documented by: Sertraline HCl (Zoloft) 50 mg PO DAILY [facility] Last Admin: 05/25/19 09:18 Dose: 50 mg Documented by: Sodium Chloride () 5 - 15 ml IV UD PRN PRN Reason: SALINE FLUSH Last Admin: 05/25/19 06:40 Dose: 10 ml Documented by: Sucralfate (Carafate) 1 gm PO 1HR_ACHS [facility] Last Admin: 05/25/19 06:40 Dose: 1 gm Documented by: Throat Lozenges (Cepacol Sore Throat Lozenge) 1 lozenge MUCOUS MEM Q2H PRN PRN PRN Reason: Sore Throat/Cough Tramadol HCl (Ultram) 50 mg PO Q12H PRN PRN PRN Reason: Pain Score 6-10/10 Last Admin: 05/24/19 17:23 Dose: 50 mg Documented by: Trazodone HCl (Desyrel) 50 mg PO QHS [facility] Last Admin: 05/24/19 21:04 Dose: 50 mg Documented by: Medical Necessity - Tobacco Use Smoking Status: Former smoker Tobacco Use: Non-smoker Assessment/Plan All Active Problems Atrial fibrillation (Acute) Abnormal cardiac enzyme level (Acute) Rhabdomyolysis (Acute) Fecal occult blood test positive (Acute) Sepsis (Acute) Pneumonia (Acute) CORNELL (acute kidney injury) (Acute) RECOMMENDATIONS: 1. Continue bronchodilators and antibiotics. For simplicity sake, the patient's doxycycline and Zosyn can likely be discontinued and transitioned to Levaquin. 2. Continue prednisone 40 mg daily. 3. Wean supplemental oxygen to maintain saturations at or above 90%. 4. Encourage incentive spirometer use and mobilize patient as tolerated. 5. At discharge, the patient should be sent home on a triple therapy inhaler regimen. He was apparently receiving both Advair and Spiriva previously. 6. Outpatient pulmonary follow-up within 2 weeks of discharge is warranted. IMPRESSIONS: 1. Pulmonary nodule The patient does have evidence of a right upper lobe lung nodule, which was not previously noted on CT chest in 2017. The patient does have a prior extensive smoking history and therefore this lesion would be of concern. Nevertheless, a report from the patient's CT chest through the [facility] dated May 10 indicated that there was no such parenchymal abnormality. I do feel that it would be highly unlikely that the patient developed a large lung nodule of clinical concern in the time that has elapsed since his last chest imaging study. I do have to wonder if this area could also represent something like rounded atelectasis or an AV malformation. I do think that it is likely reasonable to hold off on a percutaneous needle biopsy at this particular juncture. I do recommend that the patient follow-up in the pulmonary medicine clinic, at which time, repeat chest imaging can be completed in 6 to 8 weeks. If the lesion is still noted to be present at that time, percutaneous needle biopsy can be arranged. 2. Acute hypoxemic respiratory insufficiency, likely secondary to COPD with exacerbation Potentially related to viral etiology versus under treatment of baseline COPD due to possible compliance issues. The patient may also have underlying tracheobronchitis. For now, agree with continuing antibiotics. However, given the lack of infiltrate noted on CT chest, the patient can likely be transitioned to Levaquin as monotherapy to complete a 7-day treatment course. His stress dose steroids have been discontinued and he has been placed on prednisone 40 mg daily. He can be treated with this for a 5-day burst. Wean supplemental oxygen to maintain saturations at or above 90%. Encourage incentive spirometer use and mobilize patient as tolerated. 3. Acute on chronic kidney disease Likely prerenal in etiology. Improved with supplemental IV fluid hydration. Continue to monitor urine output. No indication for renal replacement therapy at this time. 4. Poor historian/hypertension/GERD/depression/hypothyroidism Complicates care, management, recovery and prognosis. Continue home medications as indicated. This note was generated with [employer] dictation software. It may contain incorrect words, spelling, and punctuation that were not noted in checking the note before signing. Code Visit Inpatient E&M: 42442 Subs Hosp L2
--- NOTE | 2019-05-25 10:41 | CON.PCM_ITS ---
Problem List (1) Fecal occult blood test positive Status: Acute Reason for Consult Date of Consultation: 05/25/19 History of Present Illness: The patient is a 69 year old M who was in the hospital for pneumonia. He was on a recent dose of steroids. He was complaining of some right upper quadrant pain today. No nausea or vomiting. His fecal occult blood test was positive. He reports his last colonoscopy was in 2013. He is never had an EGD. Past Medical History Past Medical History (Chronic Problems): Chronic Problems COPD (chronic obstructive pulmonary disease) (Chronic) History of MRSA infection of lungs (Chronic) 2010 and 2015 Adrenal insufficiency (Chronic) Allergies vancomycin Allergy (Verified 05/21/19 16:20) Anaphylaxis Home Medications: Ambulatory Orders Medication Instructions Recorded Albuterol Sulfate 2.5 mg IH DAILY 07/21/18 ALPRAZolam [Xanax] 1 - 2 tab PO TID PRN PRN 05/21/19 Benztropine Mesylate 1 mg PO BID 05/21/19 Budesonide Aerosol [Pulmicort 0.5 mg INHALATION DAILY 05/21/19 Aerosol] Clonidine HCl [Catapres] 0.1 mg PO DAILY 05/21/19 Levothyroxine [Synthroid] 112 mcg PO DAILY 05/21/19 Lorazepam [Ativan] 2 mg PO QHS 05/21/19 Metoprolol Succinate 25 mg PO DAILY 05/21/19 Montelukast [Singulair] 10 mg PO QHS 05/21/19 Nebivolol HCl [Bystolic] 10 mg PO DAILY 05/21/19 Olmesartan/Hydrochlorothiazide 1 ea PO DAILY 05/21/19 [Olmesartan-Hctz 40-12.5 mg Tab] Pantoprazole Sodium [Protonix] 40 mg PO DAILY 05/21/19 Propranolol HCl [Inderal (Beta 20 mg PO DAILY 05/21/19 [facility])] Sertraline HCl [Zoloft] 50 mg PO DAILY 05/21/19 Sucralfate [Carafate] 1 gm PO 4X/DAY 05/21/19 Tiotropium [place] [Spiriva 18 MCG] 1 puff INHALATION DAILY 05/21/19 Valbenazine Tosylate [Ingrezza] 80 mg PO DAILY 05/21/19 traMADol [Ultram (G)] 50 mg PO Q6H PRN PRN 05/21/19 traZODone [Desyrel] 150 mg PO QHS 05/21/19 Surgical History: - - colonoscopy and EGD, bronch 2011, Psychiatric History: No pertinent psych hx Lives: Alone Smoking Status: Former smoker Tobacco Use: Non-smoker Alcohol: None Drugs: None - *Family History Maternal History Items: No pertinent history Paternal History Items: No pertinent history Review of Systems Constitutional: Denies: Anorexia, Fever Eyes: Denies: Blurred vision HEENT: Denies: Difficulty Hearing, Difficulty Swallowing Cardiovascular: Denies: Chest Pain Respiratory: Denies: Cough, Shortness of Breath Gastrointestinal: Reports: Abdominal Pain. Denies: Constipation, Diarrhea, Hematemesis, Hematochezia, Nausea, Melena, Vomiting Musculoskeletal: Denies: Joint swelling Skin: Denies: Jaundice Neurological: Denies: Balance problems Psychiatric: Denies: Anxiety Hematologic/ Lymphatic: Denies: Adenopathy Patient Problems: Active and Suspected Problems Atrial fibrillation (Acute) Abnormal cardiac enzyme level (Acute) Rhabdomyolysis (Acute) Fecal occult blood test positive (Acute) - Physical Exam Vitals/I&O's: Vital Signs Temp Pulse Resp BP Pulse Ox 99 F 100 18 187/93 H 98 05/25/19 09:06 05/25/19 09:15 05/25/19 09:06 05/25/19 09:06 05/25/19 09:06 Oxygen Flow Rate (L/min) 2 Oxygen Delivery Method Room Air Weight: 151 lb 14.376 oz Body Mass Index (BMI) 21.1 Intake and Output for Last 24 Hours 05/23/19 05/24/19 05/25/19 23:59 23:59 23:59 Intake Total 4104.42 / 4104.42 2704.34 / 2704.34 290 / 290 Output Total 1425 / 1425 1525 / 1525 800 / 800 Balance 2679.42 / 2679.42 1179.34 / 1179.34 -510 / -510 General: Alert, Cooperative, No apparent distress HEENT: Atraumatic Neck: No JVD Lungs: Normal air movement Cardiovascular: Regular rate, Regular Rhythm Abdomen: Soft, Non-Distended, Tender - Tender to the right of the umbilicus. Negative White sign. Extremities: No clubbing Skin: No rashes Musculoskeletal: No Muscle Wasting Neurological: Cranial nerves II-XII grossly intact Psych/Mental Status: Normal Affect Microbiology Past 72 Hours 05/25/19 02:50 Stool Stool Occult Blood (FARTUN) - Final Occult Blood Positive 05/21/19 17:30 Blood Culture (Wb) - Anticubital Left Blood Culture - Preliminary No growth in 48 hours. 05/21/19 16:30 Blood Culture (Wb) - Anticubital Left Blood Culture - Preliminary No growth in 48 hours. 05/22/19 02:15 Urine, Clean Catch Urine Culture - Final Culture exhibits no growth. 05/22/19 11:52 Swab (Method) Nasal Screen MRSA/MSSA - Final 05/21/19 22:45 Interface Orders Respiratory Panel (PCR) - Final Laboratory Results 05/24/19 11:36: POC Glucose 161 H 05/24/19 17:09: POC Glucose 155 H 05/24/19 21:03: POC Glucose 212 H 05/25/19 05:50: Sodium 142, Potassium 3.2 L, Chloride 110 H, Carbon Dioxide 24.0, Anion Gap 8, BUN 25 H, Creatinine 1.36 H, Estim Creat Clear Calc 48.55, Est GFR (MDRD) Af Amer 66, Est GFR (MDRD) Non-Af 55 L, BUN/Creatinine Ratio 18.4, Glucose 103, Calcium 8.3 L 05/25/19 06:38: POC Glucose 138 H Current Medications Acetaminophen (Tylenol) 650 mg PO Q6H PRN PRN PRN Reason: Pain Score 1-3/Temp > 100.7 F Last Admin: 05/24/19 20:09 Dose: 650 mg Documented by: Al Hydroxide/Mg Hydroxide (Mylanta Ii) 30 ml PO Q6H PRN PRN PRN Reason: Gastric Burning Albuterol Sulfate (Ventolin Aerosols) 2.5 mg INHALATION Q2H PRN PRN PRN Reason: SOB/Wheezing Last Admin: 05/24/19 00:56 Dose: 2.5 mg Documented by: Albuterol/Ipratropium (Duoneb) 3 ml INHALATION Q4HWA.RT [facility] Last Admin: 05/25/19 07:08 Dose: 3 ml Documented by: Amlodipine Besylate (Norvasc) 5 mg PO DAILY [facility] Last Admin: 05/25/19 09:20 Dose: 5 mg Documented by: Aspirin (Aspirin, Baby) 81 mg PO DAILY@0800 [facility] Last Admin: 05/25/19 09:16 Dose: 81 mg Documented by: Dextrose (D50w Syringe) 0 gm IV X1 PRN; Protocol PRN Reason: Hypoglycemia Glucagon () 1 mg IM .X1 PRN PRN Reason: Hypoglycemia Heparin Sodium (Porcine) (Heparin Na) 5,000 unit SC Q8 [facility] Last Admin: 05/25/19 06:40 Dose: 5,000 unit Documented by: Sodium Chloride () 250 mls @ 15 mls/hr IV .[id number] PRN PRN Reason: Saline Flush Last Infusion: 05/24/19 04:05 Dose: 0 mls/hr Documented by: Piperacillin Sod/Tazobactam (Sod 3.375 gm/ Sodium Chloride) 50 mls @ 12.5 mls/hr IV Q8 [facility] Last Admin: 05/25/19 06:40 Dose: 12.5 mls/hr Documented by: Insulin Human Lispro (Humalog Kwikpen (Bkc)) 0 unit SC ACHS [facility]; Protocol Last Admin: 05/25/19 06:39 Dose: Not Given Documented by: Levothyroxine Sodium (Synthroid) 112 mcg PO DAILY@0600 [facility] Last Admin: 05/25/19 06:40 Dose: 112 mcg Documented by: Lorazepam (Ativan) 0.5 mg PO QHS PRN PRN PRN Reason: INSOMNIA Magnesium Hydroxide (Milk Of Magnesia) 30 ml PO DAILY PRN PRN PRN Reason: Constipation Melatonin (Melatonin) 3 mg PO QHS [facility] Last Admin: 05/24/19 21:05 Dose: 3 mg Documented by: Metoprolol Tartrate (Lopressor (Beta Perry)) 50 mg PO BID [facility] Last Admin: 05/25/19 09:15 Dose: 50 mg Documented by: Nitroglycerin (Nitrostat) 0.4 mg SUBLINGUAL Q5M PRN PRN Reason: CARDIAC/CHEST PAIN Nutritional Formula (Lactose Free) (Glucerna Shake) 120 ml PO 4X/DAY [facility] Last Admin: 05/25/19 09:18 Dose: Not Given Documented by: Nystatin (Nystatin) 500,000 unit PO 4X/DAY [facility] Last Admin: 05/25/19 09:18 Dose: 500,000 unit Documented by: Pantoprazole Sodium (Protonix) 40 mg PO BID [facility] Last Admin: 05/25/19 09:17 Dose: 40 mg Documented by: Polysaccharide Iron Complex (Ferrex 150) 150 mg PO DAILYCM [facility] Last Admin: 05/25/19 09:18 Dose: 150 mg Documented by: Prednisone () 40 mg PO DAILY@0800 [facility] Last Admin: 05/25/19 09:16 Dose: 40 mg Documented by: Sertraline HCl (Zoloft) 50 mg PO DAILY [facility] Last Admin: 05/25/19 09:18 Dose: 50 mg Documented by: Sodium Chloride () 5 - 15 ml IV UD PRN PRN Reason: SALINE FLUSH Last Admin: 05/25/19 06:40 Dose: 10 ml Documented by: Sucralfate (Carafate) 1 gm PO 1HR_ACHS [facility] Last Admin: 05/25/19 06:40 Dose: 1 gm Documented by: Throat Lozenges (Cepacol Sore Throat Lozenge) 1 lozenge MUCOUS MEM Q2H PRN PRN PRN Reason: Sore Throat/Cough Tramadol HCl (Ultram) 50 mg PO Q12H PRN PRN PRN Reason: Pain Score 6-10/10 Last Admin: 05/24/19 17:23 Dose: 50 mg Documented by: Trazodone HCl (Desyrel) 50 mg PO QHS [facility] Last Admin: 05/24/19 21:04 Dose: 50 mg Documented by: Assessment/Plan All Active Problems Atrial fibrillation (Acute) Abnormal cardiac enzyme level (Acute) Rhabdomyolysis (Acute) Fecal occult blood test positive (Acute) Sepsis (Acute) Pneumonia (Acute) CORNELL (acute kidney injury) (Acute) 69-year-old male with positive fecal occult blood test 1. Patient is not having any gross blood. I did advise that the patient should have 1 more repeat hemoglobin to ensure that it has not fallen any more than the level it was 2 days ago which was 9. I discussed EGD and colonoscopy with the patient and he is agreeable. I will perform this as an outpatient. I would like him discharged on a PPI and Carafate and follow-up with me in 2 weeks to schedule EGD and colonoscopy. Richi Soriano MD Pager: [phone] [address] [place] [address], [address] [place] [phone] Office:
--- NOTE | 2019-05-25 11:27 | PCM.TXEXTCAR ---
- Diet 05/21/19 19:41 Diet: Cardiac: Calorie-Controlled Food consistency:: Regular Liquid Consistency:: Regular/Thin Is pt able to select menu?: Yes How many daily calories?: 1800 calorie - Routine Orders/Code Status Suppository Type: Dulcolax 10mg Suppository Frequency: Daily PRN Routine Lab Work: CBC - On 05/29/2019 and then weekly, BMP - On 05/29/2019 and then weekly - Wound(s) R elbow Wound Type: Skin Tear Dressing Change: Mepilex head Wound Type: Abrasion L hip Wound Type: Pressure Injury Dressing Change: Mepilex L elbow Wound Type: Skin Tear L shoulder Wound Type: Pressure Injury right upper arm Wound Type: Skin Tear Dressing Change: Adaptic left upper arm Wound Type: Skin Tear Dressing Change: Mepilex - Therapies Weight Bearing: Weight bearing as tolerated Extremity Affected:: Bilateral Lower Physical Therapy: Eval and Treat Occupational Therapy: Eval and Treat Speech Therapy: Eval and Treat - Allergies/Procedures Done in Hospital Allergies/Adverse Reactions: Allergies vancomycin Allergy (Verified 05/21/19 16:20) Anaphylaxis - Type of Care/Length of Stay Estimated LOS: Convalescent Care Less Than 30 days Type of Care Needed: Skilled Rehab Potential: Good Prognosis: Good - Additional Orders/Day of Discharge Day of Discharge: 05/25/19 - Dietary and Speech Recommendations Dietitian Recommendations/Changes: Will change Glucerna shake to ensure enlive (Vanilla) at [facility]. - Follow Up Care Primary Care Physician: Lukas Garcia MD [Primary Care Provider] - Please follow up with your Primary Care Physician in: In 2 weeks Please Follow Up With: Lukas Garcia MD Please Follow Up With: Waqar Hurley MD When: in 2-3 weeks Please Follow Up With: Francisco Arita MD When: in 4 weeks for chronic adrenal insufficiency, possible due to prednisone Please Follow Up With: Antony Rodriguez MD When: In 4 weeks Please Follow Up With: Richi Soriano MD When: In 2 weeks for upper and lower endoscopy
--- NOTE | 2019-05-25 12:28 | DS.PCM_ITS ---
Discharge Date and Diagnosis - Problem List Patient Problems: Active and Suspected Problems Atrial fibrillation (Acute) Abnormal cardiac enzyme level (Acute) Rhabdomyolysis (Acute) Fecal occult blood test positive (Acute) Date of Admission: 05/21/19 Date of Discharge: 05/25/19 - Primary Discharge Diagnosis Active and Suspected Problems Atrial fibrillation (Acute) Abnormal cardiac enzyme level (Acute) Rhabdomyolysis (Acute) Fecal occult blood test positive (Acute) - Secondary Discharge Diagnosis Chronic Problems COPD (chronic obstructive pulmonary disease) (Chronic) History of MRSA infection of lungs (Chronic) 2010 and 2015 Adrenal insufficiency (Chronic) Hospital Course and Treatment Consultations 05/21/19 21:53 Consult: Onc/Wound/grocery store bagger Routine Comment: Reason for Consult:: multiple wounds from falls at home Operations: None Summary of Care Provided: [] patient is 69-year-old gentleman with history of severe COPD as per PFT in 2017 was admitted with shortness of breath, chest congestion and cough. Patient was found on the floor as per the neighbor therefore unwitnessed fall prior to hospitalization. Patient also has dementia. In ED, chest x-ray shows no focal airspace disease. CT chest was done and shows 20 x 8.8 nodule in the right upper lobe anteriorly. Emphysematous changes were noted. Overall, assessment is consistent with 1. COPD exacerbation with acute bronchitis. Blood cultures x2 are negative for more than 48 hours. Respiratory panel negative. Urine culture negative. Nasal screen MRSA is negative. Patient has history of MRSA. Director Plans is been consulted and consult note appreciated. He advised CT-guided lung biopsy. On IV Solu-Medrol, antibiotics, bronchodilator and oxygen. Continue bronchopulmonary hygiene, chest physiotherapy and incentive spirometry. Patient was treated with antibiotic with doxycycline, IV Zosyn and then switched to Levaquin. 2 more days of Levaquin to complete total [address] scan from [facility] received and reviewed. First CT scan in April 19, 2019 shows noncalcified nodule in left upper lobe unchanged. Diffuse emphysematous changes noted. Second CT scan on May 10, 2019 reviewed. New infiltrate in right upper lobe from pneumonia. Few mildly enlarged mediastinal lymph nodes most likely reactive. Right upper lobe nodule not previously seen in CT chest in 2017 therefore looks recent. Overall it was decided to repeat CT in 6 to 8 weeks in pulmonary clinic and decide on biopsy after that. Patient has other multiple active issues as mentioned below 2. Acute toxic metabolic encephalopathy - improving. I suspect much of his confusion was due to polypharmacy as he was on xanax, ativan, trazodone, meletonin, ultram, zoloft. Also metabolic due to CORNELL, rhabdo, bronchitis, hypotension, and COPD exacerbation. Serial CT brains were performed as there was a report of associated Left arm weakness. These were both negative. He cannot have an MRI due to severe claustrophobia. -The patient needs to be weaned off of all addicting substances. Ativan discontinued. Xanax 0.25 mg at bedtime as needed for anxiety. 3. Acute COPD exacerbation -the patient also has chronic adrenal insufficiency possible secondary to long steroid use. Due to gastritis and right upper quadrant pain prednisone is decreased to 10 mg daily for 10 days as it would be advised to suddenly stop prednisone because he might precipitating to acute adrenal insufficiency. Continue bronchodilator, DuoNeb and albuterol as needed, incentive spirometer, Pep therapy. He denies using home oxygen. Patient is on triple inhaler therapy. Follow-up with Dr. Hurley 4. Acute rhabdo and CORNELL - resolved. 5. Spiculated lung mass-pulmonology following. Bronchoscopy and biopsy performed at [facility]. D/w Dr. Fleming - unlikely to be cancer due to recent rapid development with normal recent CT chest. It seems patient did not had CT-guided biopsy. Follow-up with Dr. Fleming in 6 to [address] scan of chest. 6. Chronic adrenal insufficiency - no hydrocortisone in his home meds. Referral to endocrinology, Dr. Arita after discharge cortisol level was decreased at 0.60 november of 2018. Patient may need to be off prednisone for about 2 to 3 weeks prior to serum cortisol level. 7. Afib on the heart monitor. metoprolol increased to 50. Cardiology consulted. Echo showing EF 5%, RVSP 44 mmHg, normal LV size and function . May need OAC however risky with anemia and hx PUD, debility. Check hemoccult. TSH low but t4 normal. mag normal. Hypokalemia, potassium replaced 8. HTN - now pulse and BP trending up, initially had hypotension but this is now recovered, I suspect hypotension is was due to polypharmacy, will cautiously add back in home meds. Continue Norvasc and clonidine. Losartan 50 mg added. Discontinue HCTZ and Olmesartan 9. Acute GI blood loss anemia on chronic normocytic anemia-with iron deficiency. PO iron started. Stool occult blood positive. Possible gastritis as patient has right upper quadrant pain. Discussed with surgeon Dr. crowe. Will need outpatient EGD and colonoscopy in 2 weeks. Follow-up with him. On Protonix 40 mg twice daily and Carafate 1 g p.o. 4 times daily. Hx PUD. Denies black stools. 10. Indeterminate troponin-likely false elevation secondary to rhabdo. No chest pain, no EKG changes, sinus arrhythmia on telemetry 11. GERD/PUD - restart Carafate and PPI. No black stools reported. As mentioned 12. Acute urinary retention-Flomax started. Weber catheter in place. Voiding trial prior to DC. 13. Pressure ulcers present on admission-wound care ordered 14. Depression / Anxiety / Unclear psychiatric illness / Insomnia - as noted per #2, polypharmacy. Continue zoloft, melatonin, trazodone at lower dose. Ativan discontinued. Needs completely weaned off and he needs to stay off of controlled substances 15. Suspected dementia - the family reports ongoing memory problems and confusion especially at night. This further adds weight to the need to discontinue as much of his sedating and anticholinergic medication as possible. He likely will need placed in an ECF and or dementia unit. He cannot manage his own medications. DVT prophylaxis: Heparin. Discharge medication reconciliation done. Discharge follow-up instructions completed. Discharge process discussed with the patient and all questions were answered to patient's satisfaction. She has been discharged to [facility] Total time spent, exact 35 minutes on discharge meds reconciliation, examination, review of imaging and blood test and discussion with the patient on follow-up instructions. Patient Problems: Active and Suspected Problems Atrial fibrillation (Acute) Abnormal cardiac enzyme level (Acute) Rhabdomyolysis (Acute) Fecal occult blood test positive (Acute) Subjective: Seen and examined. Patient denies any obvious red or brown stool. Stool for occult blood positive. Patient also had 2-3 loose bowel movement since yesterday night. Complain of right-sided abdominal pain. Objective: General: Alert, Oriented x3, Cooperative HEENT: Atraumatic, PERRLA, EOMI, Normocephalic, No whitish patches seen over oropharyngeal region including back of tongue. Neck: Supple, No JVD, Negative Carotid Bruits Lungs: Diminished bilaterally, Rhonchi, Wheezes Cardiovascular: Regular rate, Regular Rhythm, Normal S1, Normal S2, No murmurs Abdomen: Bowel Sounds Present, Soft, Non-Distended, mild tenderness over right upper quadrant Extremities: No edema, Capillary Refill Less than 3 Seconds Skin: chronic scab on right elbow Musculoskeletal: No Tenderness to Palpation of Joints or Extremities, Arthritic Changes Neurological: Cranial nerves II-XII grossly intact, Deep Tendon Reflexes 2+/4 and Symmetrical, Neuro grossly intact Psych/Mental Status: Normal Affect, Appropriate - Physical Exam Vitals/I&O's: Vital Signs Temp Pulse Resp BP Pulse Ox 98.3 F 71 16 175/93 H 97 05/25/19 12:27 05/25/19 12:27 05/25/19 12:27 05/25/19 12:27 05/25/19 12:27 Oxygen Flow Rate (L/min) 2 Oxygen Delivery Method Room Air Weight: 151 lb 14.376 oz Body Mass Index (BMI) 21.1 Intake and Output for Last 24 Hours 05/23/19 05/24/19 05/25/19 23:59 23:59 23:59 Intake Total 4104.42 / 4104.42 2704.34 / 2704.34 290 / 290 Output Total 1425 / 1425 1525 / 1525 800 / 800 Balance 2679.42 / 2679.42 1179.34 / 1179.34 -510 / -510 Microbiology Past 72 Hours 05/25/19 02:50 Stool Stool Occult Blood (FARTUN) - Final Occult Blood Positive 05/21/19 17:30 Blood Culture (Wb) - Anticubital Left Blood Culture - Preliminary No growth in 48 hours. 05/21/19 16:30 Blood Culture (Wb) - Anticubital Left Blood Culture - Preliminary No growth in 48 hours. 05/22/19 02:15 Urine, Clean Catch Urine Culture - Final Culture exhibits no growth. 05/22/19 11:52 Swab (Method) Nasal Screen MRSA/MSSA - Final 05/21/19 22:45 Interface Orders Respiratory Panel (PCR) - Final Laboratory Results 05/24/19 17:09: POC Glucose 155 H 05/24/19 21:03: POC Glucose 212 H 05/25/19 05:50: Sodium 142, Potassium 3.2 L, Chloride 110 H, Carbon Dioxide 24.0, Anion Gap 8, BUN 25 H, Creatinine 1.36 H, Estim Creat Clear Calc 48.55, Est GFR (MDRD) Af Amer 66, Est GFR (MDRD) Non-Af 55 L, BUN/Creatinine Ratio 18.4, Glucose 103, Calcium 8.3 L 05/25/19 06:38: POC Glucose 138 H Current Medications Acetaminophen (Tylenol) 650 mg PO Q6H PRN PRN PRN Reason: Pain Score 1-3/Temp > 100.7 F Last Admin: 05/24/19 20:09 Dose: 650 mg Documented by: Al Hydroxide/Mg Hydroxide (Mylanta Ii) 30 ml PO Q6H PRN PRN PRN Reason: Gastric Burning Albuterol Sulfate (Ventolin Aerosols) 2.5 mg INHALATION Q2H PRN PRN PRN Reason: SOB/Wheezing Last Admin: 05/24/19 00:56 Dose: 2.5 mg Documented by: Albuterol/Ipratropium (Duoneb) 3 ml INHALATION Q4HWA.RT [facility] Last Admin: 05/25/19 11:37 Dose: 3 ml Documented by: Amlodipine Besylate (Norvasc) 5 mg PO DAILY [facility] Last Admin: 05/25/19 09:20 Dose: 5 mg Documented by: Aspirin (Aspirin, Baby) 81 mg PO DAILY@0800 [facility] Last Admin: 05/25/19 09:16 Dose: 81 mg Documented by: Dextrose (D50w Syringe) 0 gm IV X1 PRN; Protocol PRN Reason: Hypoglycemia Glucagon () 1 mg IM .X1 PRN PRN Reason: Hypoglycemia Heparin Sodium (Porcine) (Heparin Na) 5,000 unit SC Q8 [facility] Last Admin: 05/25/19 06:40 Dose: 5,000 unit Documented by: Sodium Chloride () 250 mls @ 15 mls/hr IV .[id number] PRN PRN Reason: Saline Flush Last Infusion: 05/24/19 04:05 Dose: 0 mls/hr Documented by: Piperacillin Sod/Tazobactam (Sod 3.375 gm/ Sodium Chloride) 50 mls @ 12.5 mls/hr IV Q8 [facility] Last Admin: 05/25/19 06:40 Dose: 12.5 mls/hr Documented by: Insulin Human Lispro (Humalog Kwikpen (Bkc)) 0 unit SC [facility]; Protocol Last Admin: 05/25/19 06:39 Dose: Not Given Documented by: Levothyroxine Sodium (Synthroid) 112 mcg PO DAILY@0600 [facility] Last Admin: 05/25/19 06:40 Dose: 112 mcg Documented by: Lorazepam (Ativan) 0.5 mg PO QHS PRN PRN PRN Reason: INSOMNIA Magnesium Hydroxide (Milk Of Magnesia) 30 ml PO DAILY PRN PRN PRN Reason: Constipation Melatonin (Melatonin) 3 mg PO QHS [facility] Last Admin: 05/24/19 21:05 Dose: 3 mg Documented by: Metoprolol Tartrate (Lopressor (Beta Perry)) 50 mg PO BID [facility] Last Admin: 05/25/19 09:15 Dose: 50 mg Documented by: Nitroglycerin (Nitrostat) 0.4 mg SUBLINGUAL Q5M PRN PRN Reason: CARDIAC/CHEST PAIN Nutritional Formula (Lactose Free) (Ensure Enlive) 120 ml PO 4X/DAY [facility] Nystatin (Nystatin) 500,000 unit PO 4X/DAY [facility] Last Admin: 05/25/19 09:18 Dose: 500,000 unit Documented by: Pantoprazole Sodium (Protonix) 40 mg PO BID [facility] Last Admin: 05/25/19 09:17 Dose: 40 mg Documented by: Polysaccharide Iron Complex (Ferrex 150) [facility] Last Admin: 05/25/19 09:18 Dose: 150 mg Documented by: Prednisone () 40 mg PO DAILY@0800 [facility] Last Admin: 05/25/19 09:16 Dose: 40 mg Documented by: Sertraline HCl (Zoloft) 50 mg PO DAILY [facility] Last Admin: 05/25/19 09:18 Dose: 50 mg Documented by: Sodium Chloride () 5 - 15 ml IV UD PRN PRN Reason: SALINE FLUSH Last Admin: 05/25/19 06:40 Dose: 10 ml Documented by: Sucralfate (Carafate) [facility] Last Admin: 05/25/19 06:40 Dose: 1 gm Documented by: Throat Lozenges (Cepacol Sore Throat Lozenge) 1 lozenge MUCOUS MEM Q2H PRN PRN PRN Reason: Sore Throat/Cough Tramadol HCl (Ultram) 50 mg PO Q12H PRN PRN PRN Reason: Pain Score 6-1010 Last Admin: 05/24/19 17:23 Dose: 50 mg Documented by: Trazodone HCl (Desyrel) 50 mg PO QHS [facility] Last Admin: 05/24/19 21:04 Dose: 50 mg Documented by: Home Medications: Medications to take at Discharge Albuterol Sulfate 2.5 mg IH DAILY 07/21/18 Benztropine Mesylate 1 mg PO BID 05/21/19 Clonidine HCl [Catapres] 0.1 mg PO DAILY 05/21/19 Levothyroxine [Synthroid] 112 mcg PO DAILY 05/21/19 Montelukast [Singulair] 10 mg PO QHS 05/21/19 Pantoprazole Sodium [Protonix] 40 mg PO DAILY 05/21/19 Propranolol HCl [Inderal (Beta Perry)] 20 mg PO DAILY 05/21/19 Sertraline HCl [Zoloft] 50 mg PO DAILY 05/21/19 Sucralfate [Carafate] 1 gm PO 4X/DAY 05/21/19 Tiotropium Nikolski [Spiriva 18 MCG] 1 puff INHALATION DAILY 05/21/19 Valbenazine Tosylate [Ingrezza] 80 mg PO DAILY 05/21/19 traMADol [Ultram] 50 mg PO Q6H PRN PRN 05/21/19 ALPRAZolam [Xanax] 1 tab PO QHS PRN PRN #0 05/25/19 Albuterol Aerosols [Ventolin Aerosols] 2.5 mg INHALATION Q2H PRN PRN vial.neb. 05/25/19 Amlodipine [Norvasc] 10 mg PO DAILY #30 tab 05/25/19 Aspirin [Aspirin, Baby] 81 mg PO DAILY@0800 tab.chew 05/25/19 Budesonide Aerosol [Pulmicort Respules] 0.5 mg INHALATION BID #0 05/25/19 Ipratropium/Albuterol Sulfate [Duoneb] 3 ml INHALATION Q4HWA.RT ampul.neb Iron Polysaccharide Complex [Ferrex 150] 150 mg PO DAILYCM cap 05/25/19 Losartan Potassium 50 mg PO DAILY #30 tab 05/25/19 Melatonin 3 mg PO QHS PRN PRN tab 05/25/19 Metoprolol Tartrate [Lopressor (beta perry)] 50 mg PO BID tab 05/25/19 Nystatin 500,000 unit PO 4X/DAY [facility] 05/25/19 Pantoprazole Sodium [Protonix] 40 mg PO BID tab 05/25/19 Prednisone 10 mg PO DAILY #10 tab 05/25/19 levoFLOXacin tablet [Levaquin tablet] 500 mg PO DAILY #2 tab 05/25/19 traZODone [Desyrel] 50 mg PO QHS #0 05/25/19 Following Prescrptions Were Given to Patient: levoFLOXacin tablet [Levaquin tablet] 500 mg PO DAILY #2 tab Prescription Printed Losartan Potassium 50 mg PO DAILY #30 tab Prescription Printed Amlodipine [Norvasc] 10 mg PO DAILY #30 tab Prescription Printed Prednisone 10 mg PO DAILY #10 tab Prescription Printed Primary Care Physician: Lukas Garcia MD [Primary Care Provider] - Please Follow Up With: Lukas Garcia MD Medical Necessity - Tobacco Use Smoking Status: Former smoker Tobacco Use: Non-smoker Meaningful Use Info Meaningful Use Diagnoses (Choose all that apply): None applicable Code Visit Inpatient E&M: 61264 Disch Hosp
[2019-05-25] MEDS: Insulin Lispro 100 UNIT/ML INSULN.PEN SC (12:30)
[2019-05-25 12:40] LABS: Bedside Glucose 198 mg/dL (70-110)
[2019-05-25 12:50] LABS: Absolute Lymphocyte Count 1.02 X10^3/uL (0.83-4.51); Absolute Neutrophil Count 6.9 X10^3/uL (2.0-7.7); Basophil# 0.03 X10^3/uL; Basophil% 0.3 % (0-1); Hemoglobin 8.4 g/dL (13.0-16.5); Lymphocyte # 1.02 X10^3/ul (4.0); Lymphocyte % 11.2 % (19-41); Mean Corp Hgb Conc 31.1 g/dL (32-36); Mean Corpuscular Hgb 29.3 pg (27.0-32.0); Mean Corpuscular Volume 94.1 fL (80-94); Mean Platelet Vol. 10.6 fl (6.2-12.0); Monocyte# 0.77 X10^3/uL; Monocyte% 8.5 % (0-10); NRBC Flagged by Analyzer 0.2 % (0-5); Neutrophil # 6.91 X10^3/uL (2.7-7.7); Neutrophil % 76.1 % (47-70); POSITIVE MORPHOLOGY YES; Platelet Count 214 K/mm3 (150-450); RBC Distribution Width CV 15.8 % (11.6-14.6); RBC Distribution Width SD 54.4 fl (35.1-43.9); Red Blood Count 2.87 M/mm3 (4.6-6.2); White Blood Count 9.1 K/mm3 (4.4-11.0)
[2019-05-25 13:33] LABS: Anisocytosis 1+; Differential Indicated SCAN CRITERIA MET
--- NOTE | 2019-05-25 15:59 | CASEMGMT ---
Addendum entered by Marlen Moya 05/25/19 16:15: [facility] can transport patient. They were not sure when they will pick him up as the van driver helper is still out on a trip. KAE gave them the number to [facility] so they can call and let staff know a time. KAE notified patient, his son, and financial secretary. KAE also asked financial secretary to please call patient's son when patient is leaving. Plan: d/c to [facility] under skilled level of care on a convalescent stay. [facility] pick patient up. Marlen WEN Original Note: Patient is going to be discharged to [facility] today. KAE faxed orders. Per patient's RN patient's son called in and he does not want his sister to transport patient as it would be too much for her. KAE called [facility] and they do not have any wheelchair vans available. KAE called [facility] to see if they can pick patient up. She said she would check with their van driver helper and get back to . Await return call. Marlen PORTILLO MSW
--- NOTE | 2019-05-25 17:04 | PCA ---
Spoke with the Son Nathan on the phone, notified him that his father was heading over to [facility] right now.
--- NOTE | 2019-05-25 17:23 | NURSING ---
report called to the ADALBERTO monzon
== END 2019-05-25 17:05 | disposition skilled nursing facility (03) | DRG 190 ==
LOC: ED 18:21 → PCU 18:34
PROVIDERS: Hospitalist; Physician Assistant; Admitting Provider Internal Medicine; Emergency Provider Emergency Medicine; Family Provider Internal Medicine; PCP Internal Medicine; Visit Provider Internal Medicine
DX: J44.0 Chronic obstructive pulmonary disease with (acute) lower respiratory infection (principal); G92 Toxic encephalopathy; E27.40 Unspecified adrenocortical insufficiency; M62.82 Rhabdomyolysis; N17.9 Acute kidney failure, unspecified; E44.0 Moderate protein-calorie malnutrition; D62 Acute posthemorrhagic anemia; J44.1 Chronic obstructive pulmonary disease with (acute) exacerbation; J20.9 Acute bronchitis, unspecified; L89.222 Pressure ulcer of left hip, stage 2; Z86.14 Personal history of Methicillin resistant Staphylococcus aureus infection; R19.5 Other fecal abnormalities; R74.8 Abnormal levels of other serum enzymes; R33.9 Retention of urine, unspecified; W19.XXXA Unspecified fall, initial encounter; T50.915A Adverse effect of multiple unspecified drugs, medicaments and biological substances, initial encounter; E03.9 Hypothyroidism, unspecified; Z68.21 Body mass index [BMI] 21.0-21.9, adult; N18.9 Chronic kidney disease, unspecified; I12.9 Hypertensive chronic kidney disease with stage 1 through stage 4 chronic kidney disease, or unspecified chronic kidney disease; R91.1 Solitary pulmonary nodule; I48.91 Unspecified atrial fibrillation; Z87.891 Personal history of nicotine dependence; R09.02 Hypoxemia; R06.89 Other abnormalities of breathing
CPT/HCPCS: 36415; 70450; 71046; 71250; 80048; 80053; 80061; 80164; 81001; 82274; 82550; 82570; 82728; 82962; 83540; 83550; 83605; 83630; 83735; 84300; 84439; 84443; 84484; 85025; 85610; 85730; 87040; 87081; 87086; 87493; 87506; 87633; 93005; 93306; 94640; 97110; 97162; 97166; 97530; 97535; 97802; 97803; 99285; J7030; J7040; J7050; Q9957; A4216